=== PATIENT | female | born 1930 ===

== ENCOUNTER 2016-11-06 16:47 | Inpatient (IN) | payer MEDICARE, MEDICAID ==
[2016-11-06 16:48] VITALS: BMI 26.3
[2016-11-06] MEDS ORDERED: Sodium Chloride 0.9% 500 ML IV STA (17:35)
--- NOTE | 2016-11-06 17:52 | ED PDOC ---
Hyperglycemia/Hypoglycemia Time Seen by Provider: 11/06/16 17:04 Chief Complaint (Nursing): Medical Clearance Chief Complaint (Provider): Hyperglycemia History Per: Patient, Family (daughter) History/Exam Limitations: no limitations Onset/Duration Of Symptoms: Days (x2-3 weeks) Current Symptoms Are (Timing): Still Present : The patient does not have any of the infectious symptoms listed except for those marked. Additional Complaint(s): Jelena Simon is a 86 year old female who presents to the emergency department accompanied by her daughter, for evaluation of hyperglycemia associated with intermittent dizziness, urine frequency, decreased appetite and subjective weight loss ongoing for 2-3 weeks. Denied dysuria, hematuria, chest pain, shortness of breath or focal deficits. Daughter stated patient have not been compliant with diabetes diet, has poor sleeping habits and progressive memory loss for the past few months. Patient was recently seen by aircraft structural design engineer, Dr. Correa, who advised starting Insulin treatments and her PCP recommended ED evaluation for hyperglycemia. PMD: Curtis Norman MD Past Medical History Reviewed: Historical Data, Nursing Documentation, Vital Signs Vital Signs: Last Vital Signs Temp 97.9 F 11/06/16 16:53 Pulse 65 11/06/16 16:53 Resp 14 11/06/16 16:53 BP 163/67 H 11/06/16 16:53 Pulse Ox 100 11/06/16 16:53 - Medical History PMH: Arthritis, Dementia, Diabetes (type II), HTN Denies: Chronic Kidney Disease - Surgical History Surgical History: Cholecystectomy - Family History Family History: States: Unknown Family Hx - Social History Current smoker - smoking cessation education provided: No Alcohol: None Drugs: Denies - Immunization History Hx Tetanus Toxoid Vaccination: No Hx Influenza Vaccination: No Hx Pneumococcal Vaccination: No - Home Medications Home Medications: Ambulatory Orders Medication Instructions Recorded Ezetimibe [Zetia] 10 mg PO DAILY 11/06/16 Glimepiride [Amaryl] 4 mg PO BID 11/06/16 Linagliptin [Tradjenta] 5 mg PO DAILY 11/06/16 Lisinopril [Zestril] 20 mg PO DAILY 11/06/16 Memantine [Namenda] 5 mg PO DAILY 11/06/16 Simvastatin [Simvastatin] 10 mg PO HS 11/06/16 amLODIPine [Norvasc] 10 mg PO DAILY 11/06/16 hydroCHLOROthiazide [Microzide] 12.5 mg PO DAILY 11/06/16 - Allergies Allergies/Adverse Reactions: Allergies Allergy/AdvReac Type Severity Reaction Status Date / Time No Known Allergies Allergy Verified 06/03/16 11:11 Review of Systems ROS Statement: Except As Marked, All Systems Reviewed And Found Negative (and as per HPI) Constitutional: Positive for: Weight loss (subjective) Cardiovascular: Negative for: Chest Pain Respiratory: Negative for: Shortness of Breath Gastrointestinal: Positive for: Other (decreased appetite) Genitourinary Female: Positive for: Frequency. Negative for: Dysuria, Hematuria Neurological: Positive for: Dizziness (intermittent). Negative for: Other ( focal deficits) Physical Exam - Reviewed Nursing Documentation Reviewed: Yes Vital Signs Reviewed: Yes - Physical Exam Appears: Positive for: Non-toxic, No Acute Distress Head Exam: Positive for: ATRAUMATIC, NORMOCEPHALIC Skin: Positive for: Warm, Dry Eye Exam: Positive for: EOMI, PERRL ENT: Positive for: Other (dry muc membranes) Neck: Positive for: Painless ROM, Supple Cardiovascular/Chest: Positive for: Regular Rate, Rhythm, Chest Non Tender. Negative for: Murmur Respiratory: Positive for: Normal Breath Sounds. Negative for: Wheezing, Respiratory Distress Gastrointestinal/Abdominal: Positive for: Soft. Negative for: Tenderness, Mass , Guarding Back: Positive for: Normal Inspection. Negative for: Decreased ROM Extremity: Positive for: Normal ROM. Negative for: Pedal Edema, Calf Tenderness , Deformity Lymphatic: Negative for: Adenopathy Neurologic/Psych: Positive for: Alert. Negative for: Motor/Sensory Deficits - Laboratory Results Result Diagrams: 11/06/16 17:48 11/06/16 17:48 Interpretation Of Abn Labs: Hyperglycemia, without acidosis or ketosis - ECG O2 Sat by Pulse Oximetry: 100 (RA) Pulse Ox Interpretation: Normal - Radiology X-Ray: Read By Radiologist X-Ray Interpretation: No Acute Disease Medical Decision Making Medical Decision Making: Initial Impression: Hyperglycemia Initial Plan: * Type and screen * VBG * EKG * Labs * Lipase * Magnesium * Phosphorous * TSH * Troponin I * Urine dipstick * PTT * PT * CXR * NS 500ml IV per 500 mls/hr * Blood culture * Urine culture * Urinalysis * Re-evaluation Time: 1744 --EKG: NSR at 61 BMP. Inversion in lateral leads. Results are similiar to EKG done in 02/2016. DW Dr Correa Endocrinology and Dr Norman PMD. Pt will be hospitalized for uncontrolled diabetes. Scribe Attestation: Documented by Shanthi Kyle, acting as a scribe for Natalya Harding MD. Provider Scribe Attestation: All medical record entries made by the Scribe were at my direction and personally dictated by me. I have reviewed the chart and agree that the record accurately reflects my personal performance of the history, physical exam, medical decision making, and the department course for this patient. I have also personally directed, reviewed, and agree with the discharge instructions and disposition. Disposition - Clinical Impression Clinical Impression: Uncontrolled diabetes mellitus, Dementia, Dehydration - Disposition Disposition Time: 21:00 Condition: FAIR - Pt Status Changed To: Hospital Disposition Of: Inpatient - Admit Certification Admit to Inpatient:: After my assessment, the patient will require hospitalization for at least two midnights. This is because of the severity of symptoms shown, intensity of services needed, and/or the medical risk in this patient being treated as an outpatient. - POA Present On Arrival: Poor Glycemic Control
[2016-11-06 17:59] LABS: VENOUS BLOOD GAS BASE EXCESS 2.7 mmol/L (0.0-2.0); VENOUS BLOOD GAS PCO2 50 mmHg (40-60); VENOUS BLOOD GAS PO2 25 mm/Hg (30-55); VENOUS BLOOD PH 7.37 (7.32-7.43)
[2016-11-06 18:03] LABS: BASO # 0.1 K/uL (0.0-0.2); BASO % 0.9 % (0.0-2.0); EOS # 0.1 K/uL (0.0-0.7); EOS % 0.8 % (0.0-4.0); HEMOGLOBIN 12.8 g/dL (12.0-16.0); LYMPH # 2.3 K/uL (1.0-4.3); LYMPH % 33.4 % (20.0-40.0); MEAN CELL VOLUME 90.4 fl (81.0-99.0); MEAN CORPUSCULAR HEMOGLOBIN 29.4 pg (27.0-31.0); MEAN CORPUSCULAR HGB CONC 32.5 g/dL (33.0-37.0); MEAN PLATELET VOLUME 9.8 fl (7.2-11.7); MONO # 0.5 K/uL (0.0-0.8); MONO % 7.4 % (0.0-10.0); NEUT % 57.5 % (50.0-75.0); NRBC % 0.1 % (0.0-0.0); RBC 4.34 Mil/uL (3.80-5.20); RED CELL DISTRIBUTION WIDTH 13.7 % (11.5-14.5); WHITE BLOOD COUNT 6.9 K/uL (4.8-10.8)
[2016-11-06 18:08] LABS: ALB/GLOB RATIO 1.5 (1.0-2.1); ALBUMIN 4.6 g/dL (3.5-5.0); ALT/SGPT 52 U/L (9-52); AST/SGOT 41 U/L (14-36); BLOOD UREA NITROGEN 27 mg/dl (7-17); CALCIUM 9.6 mg/dL (8.4-10.2); GFR AFRICAN-AMERICAN > 60; GFR NON-AFRICAN AMERICAN 59; LIPASE 127 U/L (23-300); MAGNESIUM 2.2 MG/DL (1.6-2.3)
[2016-11-06] MEDS ORDERED: Dextrose 50% SYRINGE Inj (50 ml) IV PRN (19:33)
[2016-11-06] MEDS ORDERED: Glucagon Recombinant 1 mg Inj IM PRN (19:33)
[2016-11-06 19:39] LABS: SQUAMOUS EPITHIAL 1 /hpf (0-5); URINE BILIRUBIN NEGATIVE (NEGATIVE); URINE BLOOD NEGATIVE (NEGATIVE); URINE CLARITY CLEAR (Clear); URINE COLOR STRAW (YELLOW); URINE GLUCOSE (UA) >=500 mg/dL (Normal); URINE LEUKOCYTE ESTERASE NEG Leu/uL (Negative); URINE NITRATE NEGATIVE (NEGATIVE); URINE PROTEIN NEGATIVE (NEGATIVE); URINE UROBILINOGEN 0.2-1.0 mg/dL (0.2-1.0)
[2016-11-06 19:44] LABS: INR 1.2 (0.9-1.2); PARTIAL THROMBOPLASTIN TIME 27.1 Seconds (25.6-37.1)
--- NOTE | 2016-11-06 20:22 | RAD ---
HISTORY: fatigue dizziness COMPARISON: Chest x-ray 04/18/2010 and 02/29/2016 TECHNIQUE: Chest PA and lateral FINDINGS: LUNGS: No focal consolidation is seen. PLEURA: No pleural effusion is identified. CARDIOVASCULAR: Heart size is within normal limits.Atherosclerotic calcifications noted of the aorta. OSSEOUS STRUCTURES: Stable grade 1 retrolisthesis measuring 5 mm of a lower thoracic vertebral body. Degenerative changes noted of the spine. VISUALIZED UPPER ABDOMEN: Surgical clips noted right upper quadrant, likely from prior cholecystectomy. OTHER FINDINGS: None. IMPRESSION: No acute cardiopulmonary process seen.
[2016-11-06] MEDS ORDERED: Insulin Regular 100 units/ml SC SCH (22:00)
[2016-11-06] MEDS: Insulin Detemir 100 Units/ml Inj SC SCH (22:59)
[2016-11-06] MEDS: Insulin Regular 100 units/ml SC SCH (22:59)
[2016-11-07 06:23] LABS: ALB/GLOB RATIO 1.4 (1.0-2.1); ALBUMIN 3.9 g/dL (3.5-5.0); ALT/SGPT 41 U/L (9-52); AST/SGOT 36 U/L (14-36); BLOOD UREA NITROGEN 18 mg/dl (7-17); GFR AFRICAN-AMERICAN > 60; GFR NON-AFRICAN AMERICAN > 60
[2016-11-07] MEDS ORDERED: GlipiZIDE 10 mg SR Tab PO SCH (08:00)
[2016-11-07] MEDS: Insulin Regular 100 units/ml SC SCH ×4 (08:40→21:30)
[2016-11-07] MEDS: Enoxaparin 40 mg Syringe SC SCH (08:43)
[2016-11-07] MEDS ORDERED: Sodium Chloride 0.45% 1,000 ML IV SCH (09:00)
--- NOTE | 2016-11-07 10:32 | CARD ---
APPROVED REPORT EKG Measurement Heart [id number] ID [id number] <Conclusion> Normal sinus rhythm ST & T wave abnormality, consider lateral ischemia Abnormal ECG
--- NOTE | 2016-11-07 11:34 | CON ---
ENDOCRINOLOGY CONSULTATION DATE: 11/07/2016 HISTORY OF PRESENT ILLNESS: This is an 86-year-old female with known history of longstanding type 2 diabetes presenting here with progressively worsening dizziness and lightheadedness with marked generalized body weakness and concomitant hyperglycemic accelerations despite a dual oral hypoglycemic drug therapy and is now being admitted for further evaluation and management and also referred now for diabetic evaluation and management. PAST MEDICAL HISTORY: History of type 2 insulin requiring diabetes and was previously on a triple oral hypoglycemic drug therapy with metformin given as 850 mg b.i.d., but was poorly tolerated because of GI adverse effect and has now been only on a dual oral hypoglycemic drug combination with Tradjenta given as 5 mg daily with Amaryl given as 4 mg b.i.d before meals as ordered. History of hypertension and dyslipidemia. History of senile dementia with progressively worsening lapses of memory and forgetfulness as noted. History of generalized osteoarthritis as noted. She had prior cholecystectomy for underlying cholelithiasis. FAMILY HISTORY: Positive for diabetes and hypertension. SOCIAL HISTORY: The patient lives alone in a senior citizen housing building in [place] and has a very supportive daughter who lives a few blocks away. No known substance use. REVIEW OF SYSTEMS: As mentioned above. Admits to generalized body weakness with easy fatigability and tiredness and suboptimal energy level, also admits to bifrontal headaches with frequent memory lapses again worse in the last few months prior to admission, also history of marked insomnia with nil oral intake and progressive weight loss of over 15 pounds or so prior to admission. No chest pains or palpitation or PND. Her oral intake is variable and suboptimal with nausea, dyspepsia, and vague upper abdominal pain and habitual constipation. Also admits to marked polyuria, nocturia, polydipsia, and over 10-15 pound weight loss in the last few months prior to admission. PHYSICAL EXAMINATION GENERAL: female in no apparent distress. VITAL SIGNS: Blood pressure 160/90, pulse of 100 beats per minute and regular, temperature 99, respirations 20. Height is 5 feet 2 inches, weight 145 pounds. HEENT: Head normocephalic. Eyes anicteric with pink conjunctivae. Funduscopy not possible at this time. Ears, nose, and throat otherwise normal. NECK: Supple. Thyroid gland is normal in size. No carotid bruits or any cervical adenopathy. CARDIOPULMONARY: Adynamic precordium. S1 and S2 is rapid and regular. LUNGS: Clear to auscultation. ABDOMEN: Flat, soft with positive bowel sounds. EXTREMITIES: No peripheral edema. Pulses are +2 bilaterally. SKIN: Turgor is coarse and dry and buccal mucosa is parched and dry. LABORATORY DATA: Her hemoglobin A1c done on the outpatient was 13.6% which is quite elevated and indicative of suboptimal metabolic control of her dietary condition with secondary pancreatic failure as noted. Also her fasting glucose level ranged from 350 to over 400 mg/dL as noted in the outpatient despite the abovementioned drug therapy in combination. Her chemistry showed a BUN of 27, sodium 140, potassium 3.6, chloride 105, CO2 23, glucose 265, and creatinine 0.9. ASSESSMENT: This is an 86-year-old female with uncontrolled and decompensated type 2 insulin requiring diabetes with marked hyperglycemic acceleration presenting here with secondary pancreatic failure and clearly insulin requiring at this time for the first time despite maximum triple oral hypoglycemic drug therapy as given. PLAN: Plan of management as discussed with the primary physician , the imperative need to insulin therapy cannot be overemphasized despite the maximum of oral hypoglycemic drug therapy different combination. We will initiate diabetic education and to include insulin self-administration techniques by awareness educator, Ms. Yany Slade(?). We will also obtain a hemoglobin A1c to confirm her prior poor glycemic control and baseline thyroid function studies and lipid panel will be ordered. We will initiate basal insulin with Levemir given as 10 units subcutaneous at bedtime daily, to start tonight. We will titrate incremental as indicated to optimize metabolic control. We will also modify the coverage scale to obviate hypoglycemia and detailed orders have been given. If postprandial glycemic accelerations persist by tomorrow morning, then we will start her on a pre-mixed insulin regimen given twice daily before breakfast and before dinner as indicated. We will obtain serum chemistries of supplement accordingly as needed. We will follow and advise accordingly. Shanthi Correa MD
[2016-11-07] MEDS ORDERED: Potassium Chloride 20 mEq ER Tab PO ONE (12:10)
--- NOTE | 2016-11-07 19:34 | PN ---
ENDO FOLLOWUP NOTE LOCATION: Room 656. This is an 86-year-old female with recent uncontrolled type-2 insulin requiring diabetes, now being followed closely for metabolic management. She actually has already been on a combination of triple oral hypoglycemic drug therapy given on the outpatient with persistent hyperglycemic accelerations and the latest A1c done on the outpatient a week ago was 13.6% present, clearly elevated and indicative of suboptimal metabolic control of her diabetic condition with secondary pancreatic failure as noted. Her glucose values have ranged from 131/265 mg/L. Her latest A1c here is 12.9%. The chemistry showed a BUN of 18. Sodium 142, potassium 3.3, chloride 107, CO2 of 26, glucose 133 and creatinine 0.7. ASSESSMENT: This is an 86-year-old female with uncontrolled and decompensated type-2 insulin requiring diabetes with secondary pancreatic failure and clearly insulin requiring despite the recent triple oral hypoglycemic drug combination as given on the outpatient for so many years to the present time. 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 PLAN: Plan of management as discussed with the staff and the nurse practitioner and also the primary physician. Prior to this admission, the patient clearly needs the initiation of insulin therapy but because of the biggest concern regarding her dementia and frequent lapses of forgetfulness and memory, we will have to relay on either the family member or a skilled healthcare worker to administer the insulin. In the meantime, we will teach the patient insulin self-administration and our nurse educator will be coming in today to help out the patient. We will continue the low-dose correction scale regular insulin as ordered. We will add glipizide given as 10 mg p.o. b.i.d. before meals as ordered. We will continue also the Januvia given as 50 mg once daily as given. We will titrate incremental as indicated to optimize metabolic control. We will continue the IV hydration as given and obtain serum chemistries of supplement accordingly as needed. We will follow with you. Shanthi Correa MD
--- NOTE | 2016-11-07 20:34 | CP.PCM.HP ---
History of Present Illness - History of Present Illness History of Present Illness: 86 yo with hx of HTN NIDDM Dementia admitted for uncontrolled blood sugars Present on Admission - Present on Admission Any Indicators Present on Admission: No Past Patient History - Past Medical History & Family History Past Medical History?: Yes - Past Social History Smoking Status: Never Smoked - CARDIAC Hx Hypertension: Yes - PULMONARY Hx Respiratory Disorders: No - NEUROLOGICAL Hx Dementia: Yes - HEENT Hx HEENT Problems: No - RENAL Hx Chronic Kidney Disease: No - ENDOCRINE/METABOLIC Hx Diabetes Mellitus Type 2: Yes - HEMATOLOGICAL/ONCOLOGICAL Hx Blood Disorders: No - INTEGUMENTARY Hx Dermatological Problems: No - MUSCULOSKELETAL/RHEUMATOLOGICAL Hx Falls: No - GASTROINTESTINAL Hx Gastrointestinal Disorders: No - GENITOURINARY/GYNECOLOGICAL Hx Genitourinary Disorders: No - PSYCHIATRIC Hx Substance Use: No - SURGICAL HISTORY Hx Cholecystectomy: Yes - ANESTHESIA Hx Anesthesia: Yes Hx Anesthesia Reactions: No Hx Malignant Hyperthermia: No Meds Allergies/Adverse Reactions: Allergies Allergy/AdvReac Type Severity Reaction Status Date / Time No Known Allergies Allergy Verified 06/03/16 11:11 Physical Exam - Respiratory Exam Respiratory Exam: NORMAL BREATHING PATTERN - Cardiovascular Exam Cardiovascular Exam: REGULAR RHYTHM - GI/Abdominal Exam GI & Abdominal Exam: Normal Bowel Sounds Results - Vital Signs Recent Vital Signs: Last Vital Signs Temp 98.5 F 11/07/16 17:00 Pulse 60 11/07/16 16:10 Resp 20 11/07/16 16:10 BP 144/68 11/07/16 16:10 Pulse Ox 96 11/07/16 16:10 - Labs Result Diagrams: 11/06/16 17:48 11/07/16 05:00 Labs: Laboratory Results - last 24 hr 11/06/16 11/06/16 11/07/16 19:37 22:18 05:00 Sodium 142 Potassium 3.3 L Chloride 107 Carbon Dioxide 26 Anion Gap 12 BUN 18 H Creatinine 0.7 Est GFR ( Amer) > 60 Est GFR (Non-Af Amer) > 60 POC Glucose (mg/dL) 219 H 212 H Random Glucose 133 H Hemoglobin A1c Calcium 9.0 Total Bilirubin 0.6 AST 36 ALT 41 Alkaline Phosphatase 67 Total Protein 6.8 Albumin 3.9 Globulin 2.8 Albumin/Globulin Ratio 1.4 11/07/16 11/07/16 11/07/16 05:00 05:08 10:56 Sodium Potassium Chloride Carbon Dioxide Anion Gap BUN Creatinine Est GFR ( Amer) Est GFR (Non-Af Amer) POC Glucose (mg/dL) 131 H 265 H Random Glucose Hemoglobin A1c 12.9 H Calcium Total Bilirubin AST ALT Alkaline Phosphatase Total Protein Albumin Globulin Albumin/Globulin Ratio 11/07/16 11/07/16 12:10 15:40 Sodium Potassium Chloride Carbon Dioxide Anion Gap BUN Creatinine Est GFR ( Amer) Est GFR (Non-Af Amer) POC Glucose (mg/dL) 272 H 206 H Random Glucose Hemoglobin A1c Calcium Total Bilirubin AST ALT Alkaline Phosphatase Total Protein Albumin Globulin Albumin/Globulin Ratio Assessment & Plan - Assessment and Plan (Free Text) Assessment: NIDDM uncontrolled Insulin Nutritional Diabetic teaching Endo HTN - Date & Time Date: 11/07/16 Time: 22:22
[2016-11-07] MEDS: Pravastatin Sodium 20 MG TAB PO SCH (21:28)
[2016-11-07] MEDS: Insulin Detemir 100 Units/ml Inj SC SCH (21:28)
[2016-11-08 06:30] LABS: HEMOGLOBIN 11.9 g/dL (12.0-16.0); MEAN CELL VOLUME 89.3 fl (81.0-99.0); MEAN CORPUSCULAR HEMOGLOBIN 29.5 pg (27.0-31.0); RBC 4.04 Mil/uL (3.80-5.20); RED CELL DISTRIBUTION WIDTH 13.8 % (11.5-14.5); WHITE BLOOD COUNT 5.5 K/uL (4.8-10.8)
[2016-11-08 06:48] LABS: ALB/GLOB RATIO 1.4 (1.0-2.1); ALBUMIN 3.9 g/dL (3.5-5.0); ALT/SGPT 44 U/L (9-52); AST/SGOT 40 U/L (14-36); BLOOD UREA NITROGEN 14 mg/dl (7-17); CALCIUM 9.1 mg/dL (8.4-10.2); GFR AFRICAN-AMERICAN > 60; GFR NON-AFRICAN AMERICAN > 60
[2016-11-08] MEDS: Insulin Regular 100 units/ml SC SCH ×4 (08:19→21:57)
[2016-11-08] MEDS: Enoxaparin 40 mg Syringe SC SCH (09:05)
[2016-11-08 10:18] LABS: HEMOGLOBIN 12.4 g/dL (12.0-16.0); MEAN CELL VOLUME 90.2 fl (81.0-99.0); MEAN CORPUSCULAR HEMOGLOBIN 29.7 pg (27.0-31.0); MEAN CORPUSCULAR HGB CONC 32.9 g/dL (33.0-37.0); RBC 4.17 Mil/uL (3.80-5.20); RED CELL DISTRIBUTION WIDTH 13.7 % (11.5-14.5); WHITE BLOOD COUNT 6.5 K/uL (4.8-10.8)
[2016-11-08 10:26] LABS: BLOOD UREA NITROGEN 14 mg/dl (7-17); CALCIUM 9.3 mg/dL (8.4-10.2); GFR AFRICAN-AMERICAN > 60; GFR NON-AFRICAN AMERICAN > 60
--- NOTE | 2016-11-08 16:05 | PN ---
LOCATION: Room 656. This is an 86-year-old female with recent uncontrolled type-2 insulin requiring diabetes, now being followed closely for metabolic management. Her glycemic levels are fluctuating but improved and today's glucose values have ranged from 189 to 206 and 272 mg/dL. Her latest chemistry showed a BUN of 14, sodium 141, potassium 3.5, chloride 106, CO2 25, glucose 134, and creatinine 0.7. Her hemoglobin A1c is 12.9%, which is quite elevated and indicative of suboptimal metabolic control of her diabetic condition despite the outpatient management with triple oral hypoglycemic drug regimen as mentioned. So at this time we will continue the basal insulin given as Levemir at 10 units subcu at bedtime daily as ordered. We will also increase the Januvia to 100 mg once daily in the morning as ordered with glipizide given as 10 mg b.i.d. before meals as given. We will titrate incrementally as indicated to optimize metabolic control. She continues to have postprandial hyperglycemic accelerations and may actually need a bolus insulin regimen for each meal, but because of her underlying dementia and increased lapses of memory and forgetfulness, we will have to hold off any extra insulin administration if at all possible. Our nurse educator Ms. Shira Slade will be coming in today to teach the patient insulin self administration. However, the biggest concern is the safety of insulin administration by this patient with increased lapses of memory and forgetfulness. We will discuss with the social media content specialist regarding the outpatient options for insulin supervision by the family and/or the visiting nurse. We will follow and advise accordingly. Shanthi Correa MD
--- NOTE | 2016-11-08 17:38 | CP.PCM.PN ---
Subjective - Date & Time of Evaluation Date of Evaluation: 11/08/16 Time of Evaluation: 22:22 - Subjective Subjective: Doing well Objective - Vital Signs/Intake and Output Vital Signs (last 24 hours): Temp Pulse Resp BP Pulse Ox 98.2 F 62 18 129/62 98 16 16:17 11/08/16 16:17 11/08/16 16:17 11/08/16 16:17 11/08/16 16:17 - Medications Medications: Current Medications Amlodipine Besylate (Norvasc) 10 mg PO DAILY [facility] Last Admin: 11/08/16 09:06 Dose: 10 mg Dextrose (Dextrose 50% Inj) 0 ml IV STAT PRN; Protocol PRN Reason: Hyglycemia Protocol Dextrose (Glutose 15) 0 gm PO ONCE PRN; Protocol PRN Reason: Hypoglycemia Protocol Ezetimibe (Zetia) 10 mg PO DAILY [facility] Last Admin: 11/08/16 09:07 Dose: 10 mg Enoxaparin Sodium (Lovenox) 40 mg SC DAILY [facility] PRN Reason: Protocol Last Admin: 11/08/16 09:05 Dose: 40 mg Glipizide (Glucotrol) 10 mg PO BIDAC [facility] Last Admin: 11/08/16 17:20 Dose: 10 mg Glucagon (Glucagen Diagnostic Kit) 0 mg IM STAT PRN; Protocol PRN Reason: Hypoglycemia Protocol Hydrochlorothiazide (Microzide) 12.5 mg PO DAILY [facility] Last Admin: 11/08/16 09:05 Dose: 12.5 mg Insulin Detemir (Levemir) 10 units SC HS [facility] Last Admin: 11/07/16 21:28 Dose: 10 unit Insulin Human Regular (Humulin R) 0 units SC [facility] PRN Reason: Protocol Last Admin: 11/08/16 17:21 Dose: Not Given Lisinopril (Zestril) 20 mg PO DAILY [facility] Last Admin: 11/08/16 09:00 Dose: 20 mg Memantine (Namenda) 5 mg PO DAILY [facility] Last Admin: 11/08/16 09:06 Dose: 5 mg Pravastatin Sodium (Pravachol) 20 mg PO HS [facility] Last Admin: 11/07/16 21:28 Dose: 20 mg Sitagliptin Phosphate (Januvia) 100 mg PO DAILY [facility] - Labs Labs: 11/08/16 09:55 11/08/16 09:55 PT 12.0 Seconds (9.8-13.1) 11/06/16 19:00 INR 1.2 (0.9-1.2) 11/06/16 19:00 APTT 27.1 Seconds (25.6-37.1) 11/06/16 19:00 - Respiratory Exam Respiratory Exam: NORMAL BREATHING PATTERN - Cardiovascular Exam Cardiovascular Exam: REGULAR RHYTHM - GI/Abdominal Exam GI & Abdominal Exam: Normal Bowel Sounds Assessment and Plan - Assessment and Plan (Free Text) Assessment: NIDDM uncontrolled Insulin Nutritional Diabetic teaching Endo HTN anti-HTN meds Dementia Namenda
[2016-11-08] MEDS: Pravastatin Sodium 20 MG TAB PO SCH (21:57)
[2016-11-08] MEDS: Insulin Detemir 100 Units/ml Inj SC SCH (21:58)
[2016-11-09 07:44] VITALS: BP 161/67; PULSE 74; RESP 20; TEMP 98.4; O2SAT 97
[2016-11-09] MEDS: Insulin Regular 100 units/ml SC SCH (09:16)
[2016-11-09] MEDS: Enoxaparin 40 mg Syringe SC SCH (09:17)
--- NOTE | 2016-11-09 10:11 | CP.PCM.PCO ---
Assessment/Plan - Assessment/Plan Assessment (Free Text): Pt stable, in no apparent distress. Denies cp, sob, f/c/n/v. Heart S1S1, lungs clear, abdomen soft, non tender. Per SW pt accepted to [facility]. Pt to continue same medication regimen as here as reflected in med rec. Pt cleared by Dr. Cordoba for d/c to [facility], he will follow pt there. - Problems Patient Problems: Problem List (Active/Current) Problem Status Onset Code Dehydration Acute E86.0 Dementia Acute F03.90 Uncontrolled diabetes mellitus Acute E11.65
--- NOTE | 2016-11-09 16:17 | CP.PCM.PN ---
Subjective - Date & Time of Evaluation Date of Evaluation: 11/09/16 Time of Evaluation: 22:22 - Subjective Subjective: Above noted Objective - Vital Signs/Intake and Output Vital Signs (last 24 hours): Temp Pulse Resp BP Pulse Ox 98.4 F 74 20 161/67 H 97 11/09/16 07:43 11/09/16 09:19 11/09/16 07:43 11/09/16 09:19 11/09/16 07:43 - Labs Labs: 11/08/16 09:55 11/08/16 09:55 PT 12.0 Seconds (9.8-13.1) 11/06/16 19:00 INR 1.2 (0.9-1.2) 11/06/16 19:00 APTT 27.1 Seconds (25.6-37.1) 11/06/16 19:00 Assessment and Plan - Assessment and Plan (Free Text) Assessment: NIDDM uncontrolled Insulin Nutritional Diabetic teaching Endo HTN anti-HTN meds Dementia Namenda
[2016-11-09] MEDS ORDERED: Insulin Detemir 100 Units/ml Inj SC SCH (22:00)
--- NOTE | 2016-11-10 02:41 | PN ---
DATE: 11/09/2016 ENDO-FOLLOWUP NOTE LOCATION: Room 656. SUBJECTIVE: This is an 86-year-old female with recent uncontrolled type 2 insulin-requiring diabetes, now being followed closely for metabolic management. She has had persistent hyperglycemic accelerations despite outpatient triple oral hypoglycemic drug therapy given in combination as noted. She has been admitted now because of generalized body weakness with episodic dizziness and lightheadedness and worsening dehydration with markedly elevated glucose values as noted. LABORATORY DATA: Latest chemistries showed a BUN of 14, sodium 138, potassium 3.6, chloride 104, CO2 of 23, glucose 272 and creatinine 0.8. Her glucose values have ranged from 134 to 304 mg per dL. ASSESSMENT: This is an 86-year-old female with marked hyperglycemic accelerations with intercurrent hyperosmolar hyperglycemic state and dehydration with supervening secondary pancreatic failure and clearly insulin requiring at this time. PLAN: Plan of management was discussed with the patient and staff. We will modify the current insulin regimen and increase the Levemir to 14 units subq at bedtime daily to start tonight. We will titrate incremental as indicated to optimize metabolic control. We will also determine the need for the addition of premixed and/or bolus insulin injections as indicated. We will follow with you. Shanthi Correa MD
== END 2016-11-09 12:45 | DRG 639 ==
LOC: H.ER 16:47 → H.ERHOLD 19:33 → H.MEDSURG1 22:13
PROVIDERS: ADMIT Family Medicine Geriatric Medicine; ATTEND Family Medicine Geriatric Medicine
DX: E11.00 Type 2 diabetes mellitus with hyperosmolarity without nonketotic hyperglycemic-hyperosmolar coma (NKHHC) (principal); E11.65 Type 2 diabetes mellitus with hyperglycemia; E11.42 Type 2 diabetes mellitus with diabetic polyneuropathy; E86.0 Dehydration; F03.90 Unspecified dementia, unspecified severity, without behavioral disturbance, psychotic disturbance, mood disturbance, and anxiety; I10 Essential (primary) hypertension; I25.10 Atherosclerotic heart disease of native coronary artery without angina pectoris; E78.5 Hyperlipidemia, unspecified; I73.9 Peripheral vascular disease, unspecified; M15.9 Polyosteoarthritis, unspecified; Z79.4 Long term (current) use of insulin; Z79.84 Long term (current) use of oral hypoglycemic drugs

== ENCOUNTER 2017-02-26 16:43 | Inpatient (IN) | payer MEDICARE, MEDICAID ==
[2017-02-26 16:46] VITALS: BMI 26.3
[2017-02-26 18:01] LABS: BASO # 0.1 K/uL (0.0-0.2); EOS # 0.1 K/uL (0.0-0.7); EOS % 1.2 % (0.0-4.0); HEMATOCRIT 40.7 % (34.0-47.0); LYMPH # 2.1 K/uL (1.0-4.3); LYMPH % 37.1 % (20.0-40.0); MEAN CELL VOLUME 89.8 fl (81.0-99.0); MEAN CORPUSCULAR HEMOGLOBIN 28.8 pg (27.0-31.0); MEAN PLATELET VOLUME 9.4 fl (7.2-11.7); MONO # 0.4 K/uL (0.0-0.8); MONO % 7.4 % (0.0-10.0); NEUT % 53.3 % (50.0-75.0); NRBC % 0.1 % (0.0-0.0); WHITE BLOOD COUNT 5.6 K/uL (4.8-10.8)
[2017-02-26 18:15] LABS: ALB/GLOB RATIO 1.4 (1.0-2.1); ALKALINE PHOSPHATASE 81 U/L (38-126); ALT/SGPT 60 U/L (9-52); AST/SGOT 57 U/L (14-36); BILIRUBIN,TOTAL 0.5 mg/dl (0.2-1.3); BLOOD UREA NITROGEN 15 mg/dl (7-17); CARBON DIOXIDE 27 mmol/L (22-30); CHLORIDE 108 mmol/L (98-107); GFR AFRICAN-AMERICAN > 60; GLUCOSE,RANDOM 125 mg/dL (65-105); PHOSPHOROUS 3.1 mg/dl (2.5-4.5); POTASSIUM 3.9 MMOL/L (3.6-5.0); SODIUM 144 mmol/l (132-148); TOTAL PROTEIN 7.8 G/DL (6.3-8.2)
[2017-02-26 18:39] LABS: PARTIAL THROMBOPLASTIN TIME 29.2 Seconds (25.6-37.1)
[2017-02-26 18:45] LABS: THYROID STIMULATING HORMONE 1.06 mIU/ML (0.46-4.68)
--- NOTE | 2017-02-26 18:48 | ED PDOC ---
HPI: Altered Mental Status Time Seen by Provider: 02/26/17 17:06 Chief Complaint (Nursing): Headache Chief Complaint (Provider): Altered Mental Status History Per: Patient History/Exam Limitations: Other (demented) Onset/Duration Of Symptoms: Days (x 1) Additional Complaint(s): 87 year old female with a past medical history of dementia who presents to the ED for evaluation. The history is not completely reliable because of her past medical history. She reports that she has episodes of memory loss and confusion , specifically where she places things at home and sometimes forgets the topic of conversation while talking to her family members. She visited her PMD today for further evaluation. She denies difficulty with other ADL like taking medications, bathing, toileting and eating. Patient also denies headache, focal weakness, blurry vision, chest pain, swelling or shortness of breath. PMD: Dr. Neri Reynolds MD Past Medical History Reviewed: Historical Data, Nursing Documentation, Vital Signs Vital Signs: Last Vital Signs Temp 98.1 F 02/26/17 16:55 Pulse 64 02/26/17 16:55 Resp 18 02/26/17 16:55 BP 212/89 H 02/26/17 16:55 Pulse Ox 98 02/26/17 16:55 - Medical History PMH: Arthritis, Dementia, Diabetes (type II), HTN Denies: Chronic Kidney Disease - Surgical History Surgical History: Cholecystectomy - Family History Family History: States: Unknown Family Hx - Social History Current smoker - smoking cessation education provided: No Alcohol: None Drugs: Denies - Immunization History Hx Tetanus Toxoid Vaccination: No Hx Influenza Vaccination: No Hx Pneumococcal Vaccination: No - Home Medications Home Medications: Ambulatory Orders Medication Instructions Recorded Ezetimibe [Zetia] 10 mg PO DAILY 11/06/16 Lisinopril [Zestril] 20 mg PO DAILY 11/06/16 Memantine [Namenda] 5 mg PO DAILY 11/06/16 Simvastatin 10 mg PO HS 11/06/16 amLODIPine [Norvasc] 10 mg PO DAILY 11/06/16 hydroCHLOROthiazide [Microzide] 12.5 mg PO DAILY 11/06/16 GlipiZIDE [Glucotrol] 10 mg PO BIDAC tab 11/09/16 Insulin Detemir [Levemir] 14 units SC HS vial 11/09/16 Insulin Human Regular [HumuLIN R] 0 units SC ACHS ml 11/09/16 SITagliptin [Januvia] 100 mg PO DAILY tab 11/09/16 - Allergies Allergies/Adverse Reactions: Allergies Allergy/AdvReac Type Severity Reaction Status Date / Time No Known Allergies Allergy Verified 06/03/16 11:11 Review of Systems ROS Statement: Except As Marked, All Systems Reviewed And Found Negative Constitutional: Negative for: Other (swelling) Eyes: Negative for: Vision Change Cardiovascular: Negative for: Chest Pain Respiratory: Negative for: Shortness of Breath Neurological: Negative for: Weakness, Headache Physical Exam - Reviewed Nursing Documentation Reviewed: Yes Vital Signs Reviewed: Yes - Physical Exam Appears: Positive for: Non-toxic, No Acute Distress Head Exam: Positive for: ATRAUMATIC, NORMOCEPHALIC Skin: Positive for: Warm, Dry Eye Exam: Positive for: EOMI, PERRL ENT: Negative for: Pharyngeal Erythema, Tonsillar Exudate Neck: Positive for: Painless ROM, Supple Cardiovascular/Chest: Positive for: Regular Rate, Rhythm, Chest Non Tender. Negative for: Murmur Respiratory: Positive for: Normal Breath Sounds. Negative for: Respiratory Distress Gastrointestinal/Abdominal: Positive for: Soft. Negative for: Tenderness Back: Positive for: Normal Inspection. Negative for: Decreased ROM Extremity: Positive for: Normal ROM. Negative for: Deformity Lymphatic: Negative for: Adenopathy Neurologic/Psych: Positive for: Alert, Oriented (x3), Mood/Affect (flant), Other (per triage nurse, pt had poor insight to where she was and why she was in ER). Negative for: Motor/Sensory Deficits - Laboratory Results Result Diagrams: 02/26/17 17:57 02/26/17 17:57 - ECG O2 Sat by Pulse Oximetry: 98 (RA) Pulse Ox Interpretation: Normal - Progress ED Course And Treament: Triage nurse reports that upon her evaluation the patient did not know why she was in the ED and when asked why she thought, she would laugj. At the time, she did not know date or location. Upon, physical exam, she is alert and oriented x 3. Re-evaluation Time: 17:33 Condition: Improved Medical Decision Making Medical Decision Making: Time: 17:44 Impression: Hypertension and dementia Initial Plan: --Blood type and screen --CT Head without contrast --EKG --CMP --Lactic acid, plasma --Magnesium --Phosphorus --TSH --Troponin I --Urine dipstick --CBC with differentials --Labs reviewed and show no significant abnormalities Time: 18:57 CT Head without contrast FINDINGS: Brain: No acute intracranial hemorrhage. Age-appropriate periventricular white matter disease. No edema. Ventricles: Age-appropriate ventriculomegaly. Bones: No acute displaced fracture. Sinuses: Unremarkable as visualized. No acute sinusitis. Mastoid air cells: Unremarkable as visualized. No mastoid effusion. IMPRESSION: No acute intracranial hemorrhage, or suspicious mass effect. Time: 20:32 --Consulted with Dr. Reynolds. Agreed to admitting patient into observation for cardiac encephalopathy. --Requested cardiology consult with Dr. Barton Time: 20:56 --Spoke with Dr. Barton --recommended she take regular daily dose of Vasotec and Lisinopril DW pt findings and plan of care. Also dw pt's daughter Comfort on the phone. Scribe Attestation: Documented by Deirdre Reynolds, acting as a scribe for Natalya Harding MD Provider Scribe Attestation: All medical record entries made by the Scribe were at my direction and personally dictated by me. I have reviewed the chart and agree that the record accurately reflects my personal performance of the history, physical exam, medical decision making, and the department course for this patient. I have also personally directed, reviewed, and agree with the discharge instructions and disposition Disposition - Clinical Impression Clinical Impression: Hypertension, Dementia Counseled Patient/Family Regarding: Studies Performed, Diagnosis - Disposition Disposition Time: 20:00 Condition: FAIR - Pt Status Changed To: Hospital Disposition Of: Observation - POA Present On Arrival: None
[2017-02-26 19:07] LABS: RBC URINE 3 /hpf (0-3); URINE BILIRUBIN NEGATIVE (NEGATIVE); URINE BLOOD NEGATIVE (NEGATIVE); URINE COLOR YELLOW (YELLOW); URINE GLUCOSE (UA) >=500 mg/dL (Normal); URINE KETONE TRACE mg/dL (NEGATIVE); URINE LEUKOCYTE ESTERASE NEG Leu/uL (Negative); URINE PROTEIN 100 mg/dL (NEGATIVE); URINE UROBILINOGEN 0.2-1.0 mg/dL (0.2-1.0); WBC URINE 1 /hpf (0-5)
--- NOTE | 2017-02-26 20:02 | CT ---
EXAM: CT Head Without Intravenous Contrast CLINICAL HISTORY: 87 years old, female; Signs and symptoms; Altered mental status/memory loss; Other: Elevated BP; Additional info: AMS elevated BP TECHNIQUE: Axial computed tomography images of the head/brain without intravenous contrast. All CT scans at this facility use one or more dose reduction techniques, viz.: automated exposure control; ma/kV adjustment per patient size (including targeted exams where dose is matched to indication; i.e. head); or iterative reconstruction technique. Coronal and sagittal reformatted images were created and reviewed. COMPARISON: CT - HEAD W/O CONTRAST 2016-03-16 18:57 FINDINGS: Brain: No acute intracranial hemorrhage. Age-appropriate periventricular white matter disease. No edema. Ventricles: Age-appropriate ventriculomegaly. Bones: No acute displaced fracture. Sinuses: Unremarkable as visualized. No acute sinusitis. Mastoid air cells: Unremarkable as visualized. No mastoid effusion. IMPRESSION: No acute intracranial hemorrhage, or suspicious mass effect.
[2017-02-26] MEDS ORDERED: EnalaprilAT 1.25 mg/ml Inj IVP STA (20:35)
[2017-02-26] MEDS ORDERED: EnalaprilAT 1.25 mg/ml Inj ONE (20:53)
[2017-02-27] MEDS ORDERED: Influenza Vaccine 18yr & older 0.5 ML/45 MCG SYR IM ONE (05:25)
[2017-02-27] MEDS ORDERED: Pneumococcal 23-Valent Vaccine IM ONE (05:25)
[2017-02-27] MEDS: Enoxaparin 30 mg Syringe SC SCH (09:40)
--- NOTE | 2017-02-27 09:48 | CP.PCM.CON ---
History of Present Illness - History of Present Illness History of Present Illness: THE PATIENT IS AN 87 YEAR OLD FEMALE WITH A HISTORY OF HYPERTENSION, HYPERLIPIDEMIA, TYPE 2 DM AND ARTHRITIS. SHE ALSO HAS DEMENTIA AND STATES THAT SOMETIMES SHE FORGETS WHERE SHE PUTS THINGS OR FORGETS HER TRAIN OF THOUGHTS DURING A CONVERSATION BUT STATES THAT SHE IS GOOD WITH HER ACTIVITIES OF DAILY LIVING SUCH EATING, WASHING AND SHE STATES SHE BELIEVES SHE TAKES HER MEDICINES BUT CAN'T BE COMPLETELY SURE. SHE SAW DR PIERSON YESTERDAY AND HER BLOOD PRESSURE WAS VERY HIGH AND SHE WAS ADVISED TO GO TO THE ER. SHE WAS FOUND TO HAVE A BLOOD PRESSURE OF 212/89 LAST EVENING IN THE ER. SHE WAS ADMITTED AND DR PIERSON CALLED ME ON CONSULT AND I SPOKE TO THE ER PHYSICIAN AND RECOMMENDED THAT WE GIVE THE PATIENT HER NORMAL ANTIHYPERTENSIVE MEDICATIONS WHICH ARE AMLODIPINE 10 MGS DAILY AND LISINOPRIL 20 MGS DAILY LAST NIGHT SHE PROBABLY FORGOT TO TAKE THEM YESTERDAY. SHE DENIED ANY CHEST CHEST PAIN OR SOB AND HER BLOOD PRESSURE DECREASED TO 155/67 THIS MORNING. SHE ALSO DENIES ANY HISTORY OF CAD OR AN OLD IN. Past Patient History - Past Medical History & Family History Past Medical History?: Yes - Past Social History Smoking Status: Never Smoked - CARDIAC Hx Cardiac Disorders: Yes Hx Hypertension: Yes - PULMONARY Hx Respiratory Disorders: No - NEUROLOGICAL Hx Dementia: Yes - HEENT Hx HEENT Problems: No - RENAL Hx Chronic Kidney Disease: No - ENDOCRINE/METABOLIC Hx Diabetes Mellitus Type 2: Yes - HEMATOLOGICAL/ONCOLOGICAL Hx Blood Disorders: No Hx AIDS: No Hx Human Immunodeficiency Virus (HIV): No - INTEGUMENTARY Hx Dermatological Problems: No - MUSCULOSKELETAL/RHEUMATOLOGICAL Hx Arthritis: Yes Hx Falls: No - GASTROINTESTINAL Hx Gastrointestinal Disorders: No - GENITOURINARY/GYNECOLOGICAL Hx Genitourinary Disorders: No - PSYCHIATRIC Hx Psychophysiologic Disorder: No Hx Substance Use: No - SURGICAL HISTORY Hx Cholecystectomy: Yes - ANESTHESIA Hx Anesthesia: Yes Hx Anesthesia Reactions: No Hx Malignant Hyperthermia: No Has any member of the family had a problem w/ anesthesia?: No Meds Allergies/Adverse Reactions: Allergies Allergy/AdvReac Type Severity Reaction Status Date / Time No Known Allergies Allergy Verified 06/03/16 11:11 - Medications Medications: Current Medications Amlodipine Besylate (Norvasc) 10 mg PO DAILY [facility]EL Ezetimibe (Zetia) 10 mg PO DAILY [facility] Enoxaparin Sodium (Lovenox) 30 mg SC DAILY [facility] PRN Reason: Protocol Glipizide (Glucotrol) 10 mg PO BIDAC [facility] Hydrochlorothiazide (Microzide) 12.5 mg PO DAILY [facility] Insulin Detemir (Levemir) 14 units SC HS [facility] Lisinopril (Zestril) 20 mg PO DAILY [facility] Memantine (Namenda) 5 mg PO DAILY [facility] Sitagliptin Phosphate (Januvia) 50 mg PO DAILY [facility] Physical Exam - Respiratory Exam Respiratory Exam: Clear to Auscultation Bilateral - Cardiovascular Exam Cardiovascular Exam: REGULAR RHYTHM, +S1, +S2 - Extremities Exam Extremities exam: Positive for: normal inspection - Additional Findings Additional findings: [employer] NSR TROPONINS NORMAL CT OF THE HEAD WITHOUT ANY ACUTE FINDINGS Results - Vital Signs Recent Vital Signs: Last Vital Signs Temp 98.3 F 02/27/17 08:00 Pulse 60 02/27/17 08:00 Resp 18 02/27/17 08:00 BP 155/67 H 02/27/17 08:00 Pulse Ox 98 02/27/17 08:00 - Labs Result Diagrams: 02/26/17 17:57 02/26/17 17:57 Labs: Laboratory Results - last 24 hr 02/26/17 02/26/17 02/26/17 17:57 17:57 17:57 WBC 5.6 RBC 4.53 Hgb 13.0 Hct 40.7 MCV 89.8 MCH 28.8 MCHC 32.0 L RDW 14.0 Plt Count 137 MPV 9.4 Neut % (Auto) 53.3 Lymph % (Auto) 37.1 [place] % (Auto) 7.4 Eos % (Auto) 1.2 Baso % (Auto) 1.0 Neut # 3.0 Lymph # 2.1 [place] # 0.4 Eos # 0.1 Baso # 0.1 PT 12.8 INR 1.2 APTT 29.2 Sodium 144 Potassium 3.9 Chloride 108 H Carbon Dioxide 27 Anion Gap 13 BUN 15 Creatinine 0.8 Est GFR ( Amer) > 60 Est GFR (Non-Af Amer) > 60 POC Glucose (mg/dL) Random Glucose 125 H Lactic Acid Calcium 9.0 Phosphorus 3.1 Magnesium 2.0 Total Bilirubin 0.5 AST 57 H ALT 60 H D Alkaline Phosphatase 81 Troponin I 0.0160 Total Protein 7.8 Albumin 4.5 Globulin 3.3 Albumin/Globulin Ratio 1.4 TSH 3rd Generation 1.06 Urine Color Urine Clarity Urine pH Ur Specific [place] Urine Protein Urine Glucose (UA) Urine Ketones Urine Blood Urine Nitrate Urine Bilirubin Urine Urobilinogen Ur Leukocyte Esterase Urine RBC (Auto) Urine Microscopic WBC Ur Squamous Epith Cells 02/26/17 02/26/17 02/27/17 17:57 18:26 04:15 WBC RBC Hgb Hct MCV MCH MCHC RDW Plt Count MPV Neut % (Auto) Lymph % (Auto) [place] % (Auto) Eos % (Auto) Baso % (Auto) Neut # Lymph # [place] # Eos # Baso # PT INR APTT Sodium Potassium Chloride Carbon Dioxide Anion Gap BUN Creatinine Est GFR ( Amer) Est GFR (Non-Af Amer) POC Glucose (mg/dL) Random Glucose Lactic Acid 1.1 Calcium Phosphorus Magnesium Total Bilirubin AST ALT Alkaline Phosphatase Troponin I < 0.0120 Total Protein Albumin Globulin Albumin/Globulin Ratio TSH 3rd Generation Urine Color Yellow Urine Clarity Slighty-cloudy Urine pH 6.0 Ur Specific [place] 1.028 Urine Protein 100 Urine Glucose (UA) >=500 Urine Ketones Trace Urine Blood Negative Urine Nitrate Negative Urine Bilirubin Negative Urine Urobilinogen 0.2-1.0 Ur Leukocyte Esterase Neg Urine RBC (Auto) 3 Urine Microscopic WBC 1 Ur Squamous Epith Cells 3 02/27/17 06:47 WBC RBC Hgb Hct MCV MCH MCHC RDW Plt Count MPV Neut % (Auto) Lymph % (Auto) [place] % (Auto) Eos % (Auto) Baso % (Auto) Neut # Lymph # [place] # Eos # Baso # PT INR APTT Sodium Potassium Chloride Carbon Dioxide Anion Gap BUN Creatinine Est GFR ( Amer) Est GFR (Non-Af Amer) POC Glucose (mg/dL) 152 H Random Glucose Lactic Acid Calcium Phosphorus Magnesium Total Bilirubin AST ALT Alkaline Phosphatase Troponin I Total Protein Albumin Globulin Albumin/Globulin Ratio TSH 3rd Generation Urine Color Urine Clarity Urine pH Ur Specific [place] Urine Protein Urine Glucose (UA) Urine Ketones Urine Blood Urine Nitrate Urine Bilirubin Urine Urobilinogen Ur Leukocyte Esterase Urine RBC (Auto) Urine Microscopic WBC Ur Squamous Epith Cells Assessment & Plan - Assessment and Plan (Free Text) Assessment: SEVERE HYPERTENSION LAST NIGHT MOST PROBABLY FROM FORGETTING TO TAKE HER MEDICINES WITH GOOD RESPONSE AFTER TAKING THEM HYPERLIPIDEMIA TYPE 2 DM DEMENTIA Plan: CONTINUE AMLODIPINE 10 MGS DAILY AND LISINOPRIL 20 MGS DAILY, ZETIA, LOVENOX AND DM MEDICATIONS MONITOR BLOOD PRESSURE
--- NOTE | 2017-02-27 10:44 | CARD ---
APPROVED REPORT EKG Measurement Heart [id number] <Conclusion> Sinus bradycardia Nonspecific T wave abnormality Abnormal ECG
--- NOTE | 2017-02-27 10:59 | CARD ---
APPROVED REPORT EKG Measurement Heart [id number] <Conclusion> Sinus bradycardia Possible septal infarct, age undetermined T wave abnormality, consider lateral ischemia Abnormal ECG
[2017-02-27] MEDS: Insulin Regular 100 units/ml SC SCH ×2 (16:35→22:33)
--- NOTE | 2017-02-27 17:07 | CP.PCM.HP ---
History of Present Illness - History of Present Illness History of Present Illness: 87 yo with hx of Dementia HTN NIDDM admitted for uncontrolled hypertension with headaches and increasing confusion Present on Admission - Present on Admission Any Indicators Present on Admission: No Past Patient History - Past Medical History & Family History Past Medical History?: Yes - Past Social History Smoking Status: Never Smoked - CARDIAC Hx Cardiac Disorders: Yes Hx Hypertension: Yes - PULMONARY Hx Respiratory Disorders: No - NEUROLOGICAL Hx Dementia: Yes - HEENT Hx HEENT Problems: No - RENAL Hx Chronic Kidney Disease: No - ENDOCRINE/METABOLIC Hx Diabetes Mellitus Type 2: Yes - HEMATOLOGICAL/ONCOLOGICAL Hx Blood Disorders: No Hx AIDS: No Hx Human Immunodeficiency Virus (HIV): No - INTEGUMENTARY Hx Dermatological Problems: No - MUSCULOSKELETAL/RHEUMATOLOGICAL Hx Arthritis: Yes Hx Falls: No - GASTROINTESTINAL Hx Gastrointestinal Disorders: No - GENITOURINARY/GYNECOLOGICAL Hx Genitourinary Disorders: No - PSYCHIATRIC Hx Psychophysiologic Disorder: No Hx Substance Use: No - SURGICAL HISTORY Hx Cholecystectomy: Yes - ANESTHESIA Hx Anesthesia: Yes Hx Anesthesia Reactions: No Hx Malignant Hyperthermia: No Has any member of the family had a problem w/ anesthesia?: No Meds Allergies/Adverse Reactions: Allergies Allergy/AdvReac Type Severity Reaction Status Date / Time No Known Allergies Allergy Verified 06/03/16 11:11 Physical Exam - Respiratory Exam Respiratory Exam: NORMAL BREATHING PATTERN - Cardiovascular Exam Cardiovascular Exam: REGULAR RHYTHM - GI/Abdominal Exam GI & Abdominal Exam: Normal Bowel Sounds Results - Vital Signs Recent Vital Signs: Last Vital Signs Temp 98.1 F 02/27/17 15:40 Pulse 62 02/27/17 15:40 Resp 18 02/27/17 15:40 BP 154/62 H 02/27/17 15:40 Pulse Ox 95 02/27/17 15:40 - Labs Result Diagrams: 02/26/17 17:57 02/26/17 17:57 Labs: Laboratory Results - last 24 hr 02/26/17 02/26/17 02/26/17 17:57 17:57 17:57 WBC 5.6 RBC 4.53 Hgb 13.0 Hct 40.7 MCV 89.8 MCH 28.8 MCHC 32.0 L RDW 14.0 Plt Count 137 MPV 9.4 Neut % (Auto) 53.3 Lymph % (Auto) 37.1 [place] % (Auto) 7.4 Eos % (Auto) 1.2 Baso % (Auto) 1.0 Neut # 3.0 Lymph # 2.1 [place] # 0.4 Eos # 0.1 Baso # 0.1 PT 12.8 INR 1.2 APTT 29.2 Sodium 144 Potassium 3.9 Chloride 108 H Carbon Dioxide 27 Anion Gap 13 BUN 15 Creatinine 0.8 Est GFR ( Amer) > 60 Est GFR (Non-Af Amer) > 60 POC Glucose (mg/dL) Random Glucose 125 H Lactic Acid Calcium 9.0 Phosphorus 3.1 Magnesium 2.0 Total Bilirubin 0.5 AST 57 H ALT 60 H D Alkaline Phosphatase 81 Troponin I 0.0160 Total Protein 7.8 Albumin 4.5 Globulin 3.3 Albumin/Globulin Ratio 1.4 TSH 3rd Generation 1.06 Urine Color Urine Clarity Urine pH Ur Specific [place] Urine Protein Urine Glucose (UA) Urine Ketones Urine Blood Urine Nitrate Urine Bilirubin Urine Urobilinogen Ur Leukocyte Esterase Urine RBC (Auto) Urine Microscopic WBC Ur Squamous Epith Cells 02/26/17 02/26/17 02/27/17 17:57 18:26 04:15 WBC RBC Hgb Hct MCV MCH MCHC RDW Plt Count MPV Neut % (Auto) Lymph % (Auto) [place] % (Auto) Eos % (Auto) Baso % (Auto) Neut # Lymph # [place] # Eos # Baso # PT INR APTT Sodium Potassium Chloride Carbon Dioxide Anion Gap BUN Creatinine Est GFR ( Amer) Est GFR (Non-Af Amer) POC Glucose (mg/dL) Random Glucose Lactic Acid 1.1 Calcium Phosphorus Magnesium Total Bilirubin AST ALT Alkaline Phosphatase Troponin I < 0.0120 Total Protein Albumin Globulin Albumin/Globulin Ratio TSH 3rd Generation Urine Color Yellow Urine Clarity Slighty-cloudy Urine pH 6.0 Ur Specific [place] 1.028 Urine Protein 100 Urine Glucose (UA) >=500 Urine Ketones Trace Urine Blood Negative Urine Nitrate Negative Urine Bilirubin Negative Urine Urobilinogen 0.2-1.0 Ur Leukocyte Esterase Neg Urine RBC (Auto) 3 Urine Microscopic WBC 1 Ur Squamous Epith Cells 3 02/27/17 02/27/17 02/27/17 06:47 10:26 11:30 WBC RBC Hgb Hct MCV MCH MCHC RDW Plt Count MPV Neut % (Auto) Lymph % (Auto) [place] % (Auto) Eos % (Auto) Baso % (Auto) Neut # Lymph # [place] # Eos # Baso # PT INR APTT Sodium Potassium Chloride Carbon Dioxide Anion Gap BUN Creatinine Est GFR ( Amer) Est GFR (Non-Af Amer) POC Glucose (mg/dL) 152 H 281 H Random Glucose Lactic Acid Calcium Phosphorus Magnesium Total Bilirubin AST ALT Alkaline Phosphatase Troponin I < 0.0120 Total Protein Albumin Globulin Albumin/Globulin Ratio TSH 3rd Generation Urine Color Urine Clarity Urine pH Ur Specific [place] Urine Protein Urine Glucose (UA) Urine Ketones Urine Blood Urine Nitrate Urine Bilirubin Urine Urobilinogen Ur Leukocyte Esterase Urine RBC (Auto) Urine Microscopic WBC Ur Squamous Epith Cells 02/27/17 15:59 WBC RBC Hgb Hct MCV MCH MCHC RDW Plt Count MPV Neut % (Auto) Lymph % (Auto) [place] % (Auto) Eos % (Auto) Baso % (Auto) Neut # Lymph # [place] # Eos # Baso # PT INR APTT Sodium Potassium Chloride Carbon Dioxide Anion Gap BUN Creatinine Est GFR ( Amer) Est GFR (Non-Af Amer) POC Glucose (mg/dL) 186 H Random Glucose Lactic Acid Calcium Phosphorus Magnesium Total Bilirubin AST ALT Alkaline Phosphatase Troponin I Total Protein Albumin Globulin Albumin/Globulin Ratio TSH 3rd Generation Urine Color Urine Clarity Urine pH Ur Specific [place] Urine Protein Urine Glucose (UA) Urine Ketones Urine Blood Urine Nitrate Urine Bilirubin Urine Urobilinogen Ur Leukocyte Esterase Urine RBC (Auto) Urine Microscopic WBC Ur Squamous Epith Cells Assessment & Plan - Assessment and Plan (Free Text) Assessment: Uncontrolled hypertension with headaches and increasing confusion Admit to telemetry Cardiology Neurology Dementia cont meds NIDDM Endo LFT's ?? - Date & Time Date: 02/27/17 Time: 22:22
[2017-02-27] MEDS ORDERED: Insulin Detemir 100 Units/ml Inj SC SCH (22:00)
[2017-02-28 06:02] LABS: HEMATOCRIT 39.8 % (34.0-47.0); MEAN CELL VOLUME 89.5 fl (81.0-99.0); MEAN CORPUSCULAR HEMOGLOBIN 28.8 pg (27.0-31.0); MEAN CORPUSCULAR HGB CONC 32.1 g/dL (33.0-37.0); RED CELL DISTRIBUTION WIDTH 13.7 % (11.5-14.5); WHITE BLOOD COUNT 5.6 K/uL (4.8-10.8)
[2017-02-28] MEDS: Insulin Regular 100 units/ml SC SCH ×4 (08:00→22:06)
[2017-02-28 08:23] LABS: ALB/GLOB RATIO 1.3 (1.0-2.1); BILIRUBIN,TOTAL 0.5 mg/dl (0.2-1.3); TOTAL PROTEIN 7.4 G/DL (6.3-8.2)
--- NOTE | 2017-02-28 08:49 | CON ---
DATE: ENDOCRINOLOGY CONSULTATION ROOM: 418 HISTORY OF PRESENT ILLNESS: This is an 87-year-old female with a known history of type 2 insulin-requiring diabetes and hypertension, now being referred for further diabetic evaluation and management because of persistent hyperglycemic accelerations as noted. PAST MEDICAL HISTORY: History of type 2 insulin-requiring diabetes, currently on a combination of Basaglar or basal insulin given 16 units subcutaneous at bedtime daily with oral hyperglycemic drug therapy treated today and on Januvia given at 50 mg once daily. She was previously on glimepiride therapy, but the patient has no recollection as to whether she has been on the medications or not at this time. History of type 2 insulin-requiring diabetes - on the above regimen as mentioned, history of hypertension and dyslipidemia, history of coronary artery disease and peripheral arterial disease and vasculopathy, recent history of dementia, which is progressive in nature with frequent lapses of memory and orientation as noted, which really makes her unsafe for discharge at this time. FAMILY HISTORY: Positive for diabetes and hypertension. SOCIAL HISTORY: The patient has a supportive family. No known substance use. The patient lives alone in the senior housing in [place], but her daughter when she is in town from [place] will assume the care of her mother for many weeks on stretch until she moves back again to [place]. REVIEW OF SYSTEMS: Constitutional symptoms: She admits to generalized body weakness with hypersomnolence and lethargy and increasing bouts of forgetfulness and orientation. No chest pains, palpitations or PNDs. Her oral intake has been variable with nausea, dyspepsia, and vague upper abdominal pain. Also, admits to marked polyuria and nocturia as noted. PHYSICAL EXAMINATION: GENERAL: This is an average built female, in no apparent distress. VITAL SIGNS: Blood pressure of 140/80, pulse of 70 beats per minute and regular, temperature 98, respirations 20, height is 5 feet 2 inches, and weight is 148 pounds. HEENT: Head is normocephalic. Eyes are anicteric with pink conjunctivae. Funduscopy not possible at this time. Ears, nose, and throat are otherwise normal. NECK: Supple. Thyroid gland is normal in size. No carotid bruits or any cervical adenopathy. CARDIOPULMONARY: Some adynamic precordium. LUNGS: Shows scattered rhonchi. ABDOMEN: Flat and soft with positive bowel sounds. EXTREMITIES: No peripheral edema. Pulses are +2 bilaterally. LABORATORY DATA: Her chemistry shows a BUN of 50, sodium 144, potassium 3.9, chloride 108, CO2 27, glucose 125, and creatinine 0.8. Her glucose levels are ranging from 152 to 281 mg/dL. ASSESSMENT: This is an 87-year-old female with uncontrolled and decompensated type 2 insulin-requiring diabetes with extremes of glycemic fluctuations, also because of the variabilities of oral intake and also because of the need for prandial or mealtime coverage of her insulin regimen as noted. PLAN OF MANAGEMENT: As discussed with the patient and staff. She will actually be needing prandial insulin coverage and we will continue the glipizide given as 10 mg b.i.d. before meals and Januvia at 50 mg once daily as ordered. We will increase the basal insulin, the Levemir given as 18 units subcutaneous at bedtime daily to start tonight. We will titrate it as indicated to optimize metabolic control. We will obtain serial chemistries and supplement accordingly as needed. We will follow with you. Shanthi Correa MD
[2017-02-28] MEDS: Enoxaparin 30 mg Syringe SC SCH (09:48)
[2017-02-28 11:46] LABS: T4 8.79 ug/dl (5.5-11.0)
[2017-02-28 12:00] LABS: THYROID STIMULATING HORMONE 2.6 mIU/ML (0.46-4.68)
[2017-02-28] MEDS ORDERED: Insulin Detemir 100 Units/ml Inj SC SCH ×2 (12:15→22:00)
--- NOTE | 2017-02-28 14:02 | CP.PCM.PN ---
Subjective - Date & Time of Evaluation Date of Evaluation: 02/28/17 Time of Evaluation: 13:00 - Subjective Subjective: NO CHEST PAIN OR SOB Objective - Vital Signs/Intake and Output Vital Signs (last 24 hours): Temp Pulse Resp BP Pulse Ox 98.2 F 66 18 196/72 H 98 02/28/17 12:00 02/28/17 12:34 02/28/17 12:00 02/28/17 12:34 02/28/17 12:00 - Medications Medications: Current Medications Amlodipine Besylate (Norvasc) 10 mg PO DAILY [facility] Last Admin: 02/28/17 09:49 Dose: 10 mg Ezetimibe (Zetia) 10 mg PO DAILY [facility] Last Admin: 02/28/17 09:49 Dose: 10 mg Enoxaparin Sodium (Lovenox) 30 mg SC DAILY [facility] PRN Reason: Protocol Last Admin: 02/28/17 09:48 Dose: 30 mg Glipizide (Glucotrol) 10 mg PO BIDAC [facility] Last Admin: 02/28/17 08:00 Dose: 10 mg Hydrochlorothiazide (Microzide) 12.5 mg PO DAILY [facility] Last Admin: 02/28/17 09:49 Dose: 12.5 mg Insulin Detemir (Levemir) 14 units SC HS [facility] Insulin Human Regular (Humulin R) 0 units SC ACHS [facility] PRN Reason: Protocol Insulin Lispro Protam/Lispro Human (Humalog Mix 75/25) 14 units SC ACB [facility] Insulin Lispro Protam/Lispro Human (Humalog Mix 75/25) 6 units SC ACD [facility] Lisinopril (Zestril) 20 mg PO DAILY [facility] Last Admin: 02/28/17 09:49 Dose: 20 mg Memantine (Namenda) 5 mg PO DAILY [facility] Last Admin: 02/28/17 09:49 Dose: 5 mg Sitagliptin Phosphate (Januvia) 50 mg PO DAILY [facility] - Labs Labs: 02/28/17 05:25 02/26/17 17:57 PT 12.8 Seconds (9.8-13.1) 02/26/17 17:57 INR 1.2 (0.9-1.2) 02/26/17 17:57 APTT 29.2 Seconds (25.6-37.1) 02/26/17 17:57 - Respiratory Exam Respiratory Exam: Clear to Ausculation Bilateral - Cardiovascular Exam Cardiovascular Exam: REGULAR RHYTHM, +S1, +S2 - Extremities Exam Extremities Exam: Normal Inspection - Additional Findings Additional findings: BP VHE969/69 AT 8 AM AND INCREASED TO 196/72 AT 12 NOON [facility] NSR ENDOCRINOGY CONSULT REVIEWED Assessment and Plan - Assessment and Plan (Free Text) Assessment: HYPERTENSION HYPERLIPIDEMIA DIABETES MELLITUS Plan: CONTINUE AMLODIPINE 10 MGS DAILY AND LISINOPRIL 20 MGS DAILY EXTRA 10 MGS LISINOPRIL GIVEN ONCE AND WILL MONITOR BLOOD PRESSURE-LISINOPRIL CAN BE INCREASED TO 40 MGS DAILY IF NEEDED FOR MRI AND ECHO NEUROLOGY TO SEE
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
[2017-02-28] MEDS ORDERED: Gadodiamide 287 MG/ML VIAL (15ML) IV ONE (15:37)
--- NOTE | 2017-02-28 16:29 | MRI ---
PROCEDURE: MR Angiography of the neck without contrast HISTORY: headache, confusion COMPARISON: None available. TECHNIQUE: 3D [id number] angiography of the neck was performed. Rotating maximum intensity projection images of the cervical carotid and vertebral arteries were generated. The origins of the common carotid arteries were not visualized, which is a limitation inherent to the non-contrast time of flight technique. FINDINGS: RIGHT CAROTID ARTERIES: Common Carotid Artery: Normal. Carotid Bifurcation: Normal. Internal Carotid Artery:Normal. External Carotid Artery (proximal branches): Normal. LEFT CAROTID ARTERIES: Common Carotid Artery: Normal. Carotid Bifurcation: Normal. Internal Carotid Artery:Normal. External Carotid Artery (proximal branches): Normal. VERTEBRAL ARTERIES: Right Vertebral Artery: Normal. Left Vertebral Artery: Normal. OTHER FINDINGS: None. IMPRESSION: Normal MR Angiography of the neck.
--- NOTE | 2017-02-28 16:29 | PN ---
DATE: ENDOCRINOLOGY FOLLOWUP NOTE LOCATION: Room 418. SUBJECTIVE: This is an 87-year-old female with recent uncontrolled type 2 insulin-requiring diabetes, now being followed closely for metabolic management. She also has significant and progressive dementia with increasing bouts of forgetfulness, disorientation, and confusion and also unable to self-administer her own insulin regimen at home. She has been coming to my office on a daily basis for insulin administration, but she is only being given basal insulin once a day with persistent hyperglycemic accelerations as noted thereof. The patient lives alone at this time and really needs a subacute and/or a long-term care facility to facilitate her insulin administration and glucose monitoring and also for the overall safety of the patient as she cannot be discharged to home alone at this time with increasing dementia as noted. Her latest glucose levels have ranged from 143-176 and 312 mg/dL. The latest chemistry showed a BUN of 15, sodium 144, potassium 3.9, chloride 108, CO2 of 27, glucose 125, and creatinine 0.8. Her hemoglobin A1c is 9.2%, which is quite elevated and indicative of suboptimal metabolic control of her diabetic condition. So, at this time, we will modify and optimize her metabolic control and add a premixed insulin regimen with Humalog 75/25 given as 14 units before breakfast and 6 units before dinner to start tonight. We will also modify the coverage scale to obviate hypoglycemia and detailed orders have been given. We will lower the Levemir given as 14 units subcu at bedtime daily to start tonight. We will titrate incremental as indicated to optimize metabolic control. We will follow and advise accordingly. Shanthi Correa MD
[2017-02-28 17:00] LABS: FT3 3.29 pg/mL (2.77-5.27)
--- NOTE | 2017-02-28 17:00 | MRI ---
PROCEDURE: MRI BRAIN WITH AND WITHOUT CONTRAST HISTORY: Headache COMPARISON: None. TECHNIQUE: Multiplanar, multisequence MR images of the brain were obtained with and without intravenous contrast enhancement. FINDINGS: HEMORRHAGE: None DWI: No evidence of an acute or early subacute infarction. BRAIN PARENCHYMA: There is a 9 mm right parafalcine meningioma. There are severe chronic microangiopathic changes. There are old lacunar infarctions in the right hernandez radiata and basal ganglia. There is no mass effect or abnormal extra-axial fluid collection. The midline sagittal structures are normal. ENHANCEMENT: No abnormal parenchymal enhancement. VENTRICLES: There is moderate age-related global parenchymal volume loss and proportionate enlargement of the ventricles and cortical sulci. There is a cavum septum pellucidum. CRANIUM: Bone marrow signal is within normal limits. ORBITS: Grossly unremarkable. PARANASAL SINUSES/MASTOIDS: Predominantly clear. VASCULAR SYSTEM: There are normal signal voids in the larger intracranial arteries. OTHER FINDINGS: None . IMPRESSION: No acute intracranial abnormality. 9 mm right parafalcine meningioma. Severe chronic microangiopathic changes and moderate age-related global parenchymal volume loss.
[2017-02-28 17:49] LABS: FOLATE 9.3 ng/mL
--- NOTE | 2017-02-28 17:49 | MRI ---
PROCEDURE: Magnetic Resonance Angiography Brain HISTORY: Headache and confusion COMPARISON: None available. TECHNIQUE: 3D time of flight MR angiography of the intracranial arteries was performed. Rotating maximum intensity projection images were generated. FINDINGS: INTERNAL CAROTID ARTERIES: Normal flow related signal. The skull base, petrous, cavernous and supraclinoid segments are bilaterally widely patient. ANTERIOR CEREBRAL ARTERIES: Normal flow related signal. A1 and A2 segments are widely patent. The right A1 segment is hypoplastic, an anatomic variant. Smaller distal branches unremarkable, as visualized. MIDDLE CEREBRAL ARTERIES: Normal flow related signal. M1 and M2 segments are widely patent. Perisylvian branches grossly symmetric. POSTERIOR CIRCULATION: Basilar Artery: There a short segment stenosis in the mid basilar artery. Distal Vertebral Arteries: Unremarkable. Posterior Cerebral Arteries: There is multifocal stenosis in the right posterior cerebral artery. Normal flow related signal in the left posterior cerebral artery Posterior Inferior Cerebellar Arteries: Unremarkable. ANEURYSM/ VASCULAR MALFORMATIONS: None. OTHER FINDINGS: None. 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 No evidence of occlusion or definite stenosis in the anterior circulation.
[2017-02-28] MEDS: Insulin Lispro Mix 75/25 100 units/ml (HumaLog) 10ml SC SCH (18:06)
--- NOTE | 2017-02-28 18:30 | CP.PCM.PN ---
Subjective - Date & Time of Evaluation Date of Evaluation: 02/28/17 Time of Evaluation: 22:22 - Subjective Subjective: Neurology note appreciated Objective - Vital Signs/Intake and Output Vital Signs (last 24 hours): Temp Pulse Resp BP Pulse Ox 97.4 F L 71 14 152/70 H 96 02/28/17 17:16 02/28/17 17:16 02/28/17 17:16 02/28/17 17:30 02/28/17 17:16 - Medications Medications: Current Medications Amlodipine Besylate (Norvasc) 10 mg PO DAILY [facility] Last Admin: 02/28/17 09:49 Dose: 10 mg Aspirin (Ecotrin) 81 mg PO DAILY [facility] Last Admin: 02/28/17 18:06 Dose: 81 mg Ezetimibe (Zetia) 10 mg PO DAILY [facility] Last Admin: 02/28/17 09:49 Dose: 10 mg Enoxaparin Sodium (Lovenox) 30 mg SC DAILY [facility] PRN Reason: Protocol Last Admin: 02/28/17 09:48 Dose: 30 mg Glipizide (Glucotrol) 10 mg PO BIDAC [facility] Last Admin: 02/28/17 18:00 Dose: 10 mg Hydrochlorothiazide (Microzide) 12.5 mg PO DAILY [facility] Last Admin: 02/28/17 09:49 Dose: 12.5 mg Insulin Detemir (Levemir) 14 units SC HS [facility] Insulin Human Regular (Humulin R) 0 units SC ACHS [facility] PRN Reason: Protocol Last Admin: 02/28/17 18:01 Dose: Not Given Insulin Lispro Protam/Lispro Human (Humalog Mix 75/25) 14 units SC ACB [facility] Insulin Lispro Protam/Lispro Human (Humalog Mix 75/25) 6 units SC ACD [facility] Last Admin: 02/28/17 18:06 Dose: 6 units Lisinopril (Zestril) 20 mg PO DAILY [facility] Last Admin: 02/28/17 09:49 Dose: 20 mg Memantine (Namenda) 5 mg PO DAILY [facility] Last Admin: 02/28/17 09:49 Dose: 5 mg Sitagliptin Phosphate (Januvia) 50 mg PO DAILY [facility] - Labs Labs: 02/28/17 05:25 02/26/17 17:57 PT 12.8 Seconds (9.8-13.1) 02/26/17 17:57 INR 1.2 (0.9-1.2) 12 17:57 APTT 29.2 Seconds (25.6-37.1) 12 17:57 - Respiratory Exam Respiratory Exam: NORMAL BREATHING PATTERN - Cardiovascular Exam Cardiovascular Exam: REGULAR RHYTHM - GI/Abdominal Exam GI & Abdominal Exam: Normal Bowel Sounds Assessment and Plan - Assessment and Plan (Free Text) Assessment: Uncontrolled hypertension with headaches and increasing confusion Admit to telemetry Cardiology Neurology Dementia MID w/u ordered cont meds NIDDM Endo LFT's ??
--- NOTE | 2017-02-28 18:45 | CARD ---
APPROVED REPORT EXAM: Two-dimensional and M-mode echocardiogram with Doppler and color Doppler. Other Information Quality : GoodRhythm : NSR INDICATION Hypertension/HCVD 2D DIMENSIONS IVSd1.67 (0.7-1.1cm)LVDd4.21 (3.9-5.9cm) LVOT Diameter2.43 (1.8-2.4cm)PWd1.23 (0.7-1.1cm) IVSs1.73 (0.8-1.2cm)LVDs3.36 (2.5-4.0cm) FS (%) 20.1 %PWs1.15 (0.8-1.2cm) M-Mode DIMENSIONS Left Atrium (MM)4.41 (2.5-4.0cm)IVSd1.47 (0.7-1.1cm) Aortic Root3.00 (2.2-3.7cm)LVDd4.26 (4.0-5.6cm) Aortic Cusp Exc.1.88 (1.5-2.0cm)PWd1.44 (0.7-1.1cm) IVSs1.82 cmFS (%) 30 % LVDs3.00 (2.0-3.8cm)PWs1.44 cm Aortic Valve AI P 1/2 [id number] Mitral Valve MV E Ariljzmo96.9cm/sMV DECEL [id number] A Sakrmylw92.0cm/s MV [id number]/A ratio0.6MVA (PHT)2.63cm2 TDI Lateral E' Peak V5.46cm/sMedial E' Peak V4.16cm/sE/Lateral E'7.9 E/Medial E'10.3 Pulmonary Valve PV Peak Viuxhfbi77.3cm/s LEFT VENTRICLE The left ventricle is normal in size. There is mild concentric left ventricular hypertrophy. The left ventricular function is normal. The left ventricular ejection fraction is - 60%. There is normal LV segmental wall motion. Transmitral Doppler flow pattern is Grade I-abnormal relaxation pattern. No left ventricle thrombus noted on this study. There is no ventricular septal defect visualized. There is no left ventricular aneurysm. There is no mass noted in the left ventricle. RIGHT VENTRICLE The right ventricle is normal size. There is normal right ventricular wall thickness. The right ventricular systolic function is normal. ATRIA The left atrium is mildly dilated. There is no thrombus suspected in the left atrium. The right atrium size is normal. The interatrial septum is intact with no evidence for an atrial septal defect. AORTIC VALVE The aortic valve is normal in structure. There is trace to mild aortic regurgitation. There is no aortic valvular stenosis. MITRAL VALVE The mitral valve is normal in structure. There is no evidence of mitral valve prolapse. There is no mitral valve stenosis. Mitral regurgitation is mild. TRICUSPID VALVE The tricuspid valve is normal in structure. There is no tricuspid valve regurgitation noted. There is no tricuspid valve prolapse or vegetation. There is no tricuspid valve stenosis. PULMONIC VALVE The pulmonic valve is not well visualized. There is no pulmonic valvular regurgitation. GREAT VESSELS The aortic root is normal in size. The IVC is normal in size and collapses >50% with inspiration. PERICARDIAL EFFUSION The pericardium appears normal. There is no pleural effusion. <Conclusion> The left ventricle is normal in size. There is mild concentric left ventricular hypertrophy. The left ventricular function is normal. The left ventricular ejection fraction is - 60%. The left atriim is mildly dilated. The mitral, aortic and tricuspid valves are normal. There is mild mitral regurgitation and trace to mild aortic regurgitation.
[2017-03-01 06:16] LABS: ALB/GLOB RATIO 1.3 (1.0-2.1); ALKALINE PHOSPHATASE 75 U/L (38-126); ALT/SGPT 67 U/L (9-52); AST/SGOT 61 U/L (14-36); BILIRUBIN,TOTAL 0.5 mg/dl (0.2-1.3); BLOOD UREA NITROGEN 18 mg/dl (7-17); CALCIUM 9.1 mg/dL (8.4-10.2); CARBON DIOXIDE 29 mmol/L (22-30); CHLORIDE 105 mmol/L (98-107); GFR AFRICAN-AMERICAN > 60; GLUCOSE,RANDOM 110 mg/dL (65-105); POTASSIUM 3.5 MMOL/L (3.6-5.0); SODIUM 144 mmol/l (132-148); TOTAL PROTEIN 7.4 G/DL (6.3-8.2)
[2017-03-01] MEDS: Enoxaparin 30 mg Syringe SC SCH (08:28)
[2017-03-01] MEDS: Insulin Regular 100 units/ml SC SCH ×4 (08:28→21:17)
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
--- NOTE | 2017-03-01 09:30 | CP.PCM.PN ---
<Ankit Herrera - Last Filed: 03/01/17 09:24> Subjective - Date & Time of Evaluation Date of Evaluation: 03/01/17 Time of Evaluation: 09:24 - Subjective Subjective: Ms. Simon was seen and examined at the bedside. She is alert, oriented in all spheres. She states of experience restlessnesses last night. She denies any headache, dizziness, lightheadedness, nausea, or vomiting. There was no untoward events overnight. Objective - Vital Signs/Intake and Output Vital Signs (last 24 hours): Temp Pulse Resp BP Pulse Ox 97.5 F L 59 L 20 149/68 97 03/01/17 08:35 03/01/17 08:35 03/01/17 08:35 03/01/17 08:35 03/01/17 08:35 - Medications Medications: Current Medications Amlodipine Besylate (Norvasc) 10 mg PO DAILY [facility] Last Admin: 03/01/17 08:29 Dose: 10 mg Aspirin (Ecotrin) 81 mg PO DAILY [facility] Last Admin: 03/01/17 08:26 Dose: 81 mg Atorvastatin Calcium (Lipitor) 40 mg PO DAILY@2100 [facility] Clopidogrel Bisulfate (Plavix) 75 mg PO DAILY [facility] Enoxaparin Sodium (Lovenox) 30 mg SC DAILY [facility] PRN Reason: Protocol Last Admin: 03/01/17 08:28 Dose: 30 mg Glipizide (Glucotrol) 10 mg PO BIDAC [facility] Last Admin: 03/01/17 08:26 Dose: 10 mg Hydrochlorothiazide (Microzide) 12.5 mg PO DAILY [facility] Last Admin: 03/01/17 08:28 Dose: 12.5 mg Insulin Detemir (Levemir) 14 units SC HS [facility] Last Admin: 02/28/17 22:10 Dose: 14 units Insulin Human Regular (Humulin R) 0 units SC ACHS [facility] PRN Reason: Protocol Last Admin: 03/01/17 08:28 Dose: Not Given Insulin Lispro Protam/Lispro Human (Humalog Mix 75/25) 14 units SC ACB [facility] Insulin Lispro Protam/Lispro Human (Humalog Mix 75/25) 6 units SC ACD [facility] Last Admin: 02/28/17 18:06 Dose: 6 units Lisinopril (Zestril) 20 mg PO DAILY [facility] Last Admin: 03/01/17 08:30 Dose: 20 mg Memantine (Namenda) 5 mg PO DAILY [facility] Last Admin: 03/01/17 08:29 Dose: 5 mg Sitagliptin Phosphate (Januvia) 50 mg PO DAILY [facility] - Labs Labs: 02/28/17 05:25 03/01/17 04:40 PT 12.8 Seconds (9.8-13.1) 02/26/17 17:57 INR 1.2 (0.9-1.2) 02/26/17 17:57 APTT 29.2 Seconds (25.6-37.1) 02/26/17 17:57 - Constitutional Appears: No Acute Distress - Head Exam Head Exam: ATRAUMATIC - Neurological Exam Neurological Exam: Alert, Awake, CN II-XII Intact Neuro motor strength exam: Left Upper Extremity: 5, Right Upper Extremity: 5, Left Lower Extremity: 5, Right Lower Extremity: 5 Additional comments: Neurological unchanged from previous examination. Assessment and Plan (1) Altered mental status Assessment & Plan: Case discussed with Dr. Ruelas, recommends dual anti platelet and increasing statin. Plavix 75 mg PO Q daily and Lipitor 40 mg PO Q daily. Pending EEG result. Status: Acute <Willie Ruelas - Last Filed: 03/01/17 12:43> Objective - Vital Signs/Intake and Output Vital Signs (last 24 hours): Temp Pulse Resp BP Pulse Ox 97.9 F 62 20 156/71 H 97 03/01/17 12:37 03/01/17 12:37 03/01/17 12:37 03/01/17 12:37 03/01/17 12:37 - Medications Medications: Current Medications Amlodipine Besylate (Norvasc) 10 mg PO DAILY [facility] Last Admin: 03/01/17 08:29 Dose: 10 mg Aspirin (Ecotrin) 81 mg PO DAILY [facility] Last Admin: 03/01/17 08:26 Dose: 81 mg Atorvastatin Calcium (Lipitor) 40 mg PO DAILY@2100 [facility] Clopidogrel Bisulfate (Plavix) 75 mg PO DAILY [facility] Last Admin: 03/01/17 11:40 Dose: 75 mg Enoxaparin Sodium (Lovenox) 30 mg SC DAILY [facility] PRN Reason: Protocol Last Admin: 03/01/17 08:28 Dose: 30 mg Glipizide (Glucotrol) 10 mg PO BIDAC [facility] Last Admin: 03/01/17 08:26 Dose: 10 mg Hydrochlorothiazide (Microzide) 12.5 mg PO DAILY [facility] Last Admin: 03/01/17 08:28 Dose: 12.5 mg Insulin Detemir (Levemir) 14 units SC HS [facility] Last Admin: 02/28/17 22:10 Dose: 14 units Insulin Human Regular (Humulin R) 0 units SC ACHS [facility] PRN Reason: Protocol Last Admin: 03/01/17 11:34 Dose: Not Given Insulin Lispro Protam/Lispro Human (Humalog Mix 75/25) 14 units SC ACB [facility] Last Admin: 03/01/17 11:35 Dose: 14 units Insulin Lispro Protam/Lispro Human (Humalog Mix 75/25) 6 units SC ACD [facility] Last Admin: 02/28/17 18:06 Dose: 6 units Lisinopril (Zestril) 20 mg PO Q12 [facility] Memantine (Namenda) 5 mg PO DAILY [facility] Last Admin: 03/01/17 08:29 Dose: 5 mg Sitagliptin Phosphate (Januvia) 50 mg PO DAILY [facility] - Labs Labs: 02/28/17 05:25 03/01/17 04:40 PT 12.8 Seconds (9.8-13.1) 02/26/17 17:57 INR 1.2 (0.9-1.2) 02/26/17 17:57 APTT 29.2 Seconds (25.6-37.1) 02/26/17 17:57 Assessment and Plan (1) Altered mental status Assessment & Plan: The EEG was normal, but 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 The standard of care is to start dual anti-platelet agents as well as a medium to high dose statin. No further recommendations at this time. The patient can be followed up in the outpatient neurology clinic. Status: Acute (2) Confusion Status: Acute (3) Intracranial atherosclerosis Status: Chronic
[2017-03-01] MEDS: Insulin Lispro Mix 75/25 100 units/ml (HumaLog) 10ml SC SCH ×2 (11:35→16:46)
--- NOTE | 2017-03-01 12:39 | PCM.EEG ---
Electroencephalogram Report - Electroencephalogram Report Procedure Date: 03/01/17 Interpretation: Indication: Confusion. Medications were reviewed. Technical: This is a digitally recorded electroencephalogram. The international 10-20 electrode placement system is used for scalp electrode placement. Eighteen channels of scalp EEG are recorded Another channel was used for for ECG. The data are stored digitally and reviewed in reformatted montages for optimal display. Background: 8 to 10 hertz alpha activity was seen. Maximal over the posterior head region. These activities are symmetric on both sides. They attenuated with eye opening. Small amount of beta activities are seen. Description: No focal slowing was seen. No seizure like activity was observed during this recording. Patient entered into periods of drowsiness and light sleep. No abnormality was seen. Impression: Normal EEG. No focal slowing no seizure like activity was observed. Correlation with clinical findings is needed.
--- NOTE | 2017-03-01 18:26 | PN ---
DATE: ENDOCRINE FOLLOWUP NOTE LOCATION: Room 418. SUBJECTIVE: This is an 87-year-old female with recent uncontrolled type 2 insulin-requiring diabetes, now being followed closely for metabolic management. She also has progressive dementia and increasing bouts of confusion, disorientation, and frequent lapses of memory and forgetfulness this time and is unable to self administer her own insulin at home, not even do any glucose monitoring at home. Her latest chemistry shows a BUN of 18, sodium 144, potassium 3.5, chloride 105, CO2 of 29, glucose 110, and creatinine 0.8. Her latest glucose levels have ranged from 131 to 225 mg/dL. Her bedtime glucose was 172, of note. For now, we will continue the same basal and premixed insulin regimens to allow for dose equilibration and modify the Levemir to 12 units subcu at bedtime daily to start tonight. We will titrate incrementally as indicated to optimize metabolic control. We will also continue the same premixed insulin regimen to allow for dose equilibration and keep her on the Humalog 75/25 given as 14 units before breakfast and 6 units before dinner as ordered. We will titrate incrementally as indicated to optimize metabolic control. We will discuss with the nurse in charge, this will be a very unsafe discharge home for the patient because of inability to self administer her own insulin regimen and also to do self glucose monitoring and also to keep her meals on time in sync with the insulin administration. We will obtain serial chemistries and supplement accordingly as needed. We will follow this.. Shanthi Correa MD
--- NOTE | 2017-03-01 20:53 | CP.PCM.PN ---
Subjective - Date & Time of Evaluation Date of Evaluation: 03/01/17 Time of Evaluation: 22:22 - Subjective Subjective: MRI Menigioma?? Microvascular dx MRA Stenosis vert-basilar Endo- unsafe d/c home Objective - Vital Signs/Intake and Output Vital Signs (last 24 hours): Temp Pulse Resp BP Pulse Ox 98.2 F 66 17 150/65 97 03/01/17 19:22 03/01/17 19:22 03/01/17 19:22 03/01/17 19:22 03/01/17 19:22 Intake and Output: 03/01/17 03/02/17 18:59 06:59 Intake Total 1500 Balance 1500 - Medications Medications: Current Medications Amlodipine Besylate (Norvasc) 10 mg PO DAILY [facility] Last Admin: 03/01/17 08:29 Dose: 10 mg Aspirin (Ecotrin) 81 mg PO DAILY [facility] Last Admin: 03/01/17 08:26 Dose: 81 mg Atorvastatin Calcium (Lipitor) 40 mg PO DAILY@2100 [facility] Clopidogrel Bisulfate (Plavix) 75 mg PO DAILY [facility] Last Admin: 03/01/17 11:40 Dose: 75 mg Enoxaparin Sodium (Lovenox) 30 mg SC DAILY [facility] PRN Reason: Protocol Last Admin: 03/01/17 08:28 Dose: 30 mg Glipizide (Glucotrol) 10 mg PO BIDAC [facility] Last Admin: 03/01/17 16:46 Dose: 10 mg Hydrochlorothiazide (Microzide) 12.5 mg PO DAILY [facility] Last Admin: 03/01/17 08:28 Dose: 12.5 mg Insulin Detemir (Levemir) 12 units SC HS [facility] Insulin Human Regular (Humulin R) 0 units SC ACHS [facility] PRN Reason: Protocol Last Admin: 03/01/17 16:46 Dose: Not Given Insulin Lispro Protam/Lispro Human (Humalog Mix 75/25) 14 units SC ACB [facility] Last Admin: 03/01/17 11:35 Dose: 14 units Insulin Lispro Protam/Lispro Human (Humalog Mix 75/25) 6 units SC ACD [facility] Last Admin: 03/01/17 16:46 Dose: 6 units Lisinopril (Zestril) 20 mg PO Q12 [facility] Memantine (Namenda) 5 mg PO DAILY [facility] Last Admin: 03/01/17 08:29 Dose: 5 mg Sitagliptin Phosphate (Januvia) 50 mg PO DAILY [facility] - Labs Labs: 02/28/17 05:25 03/01/17 04:40 PT 12.8 Seconds (9.8-13.1) 02/26/17 17:57 INR 1.2 (0.9-1.2) 02/26/17 17:57 APTT 29.2 Seconds (25.6-37.1) 02/26/17 17:57 - Respiratory Exam Respiratory Exam: NORMAL BREATHING PATTERN - Cardiovascular Exam Cardiovascular Exam: REGULAR RHYTHM - GI/Abdominal Exam GI & Abdominal Exam: Normal Bowel Sounds Assessment and Plan - Assessment and Plan (Free Text) Assessment: Uncontrolled hypertension 2 to noncompliance Admit to telemetry Cardiology Meds adjusted Dementia MID? Headaches and increasing confusion MRI Menigioma?? Microvascular dx MRA Stenosis vert-basilar cont meds Neurology NIDDM Endo- unsafe d/c home LFT's ??
[2017-03-01] MEDS ORDERED: Insulin Detemir 100 Units/ml Inj SC SCH (22:00)
[2017-03-02] MEDS: Insulin Regular 100 units/ml SC SCH ×2 (06:37→12:11)
--- NOTE | 2017-03-02 07:55 | CP.PCM.PN ---
Subjective - Date & Time of Evaluation Date of Evaluation: 03/02/17 Time of Evaluation: 07:30 - Subjective Subjective: NO CHEST PAIN OR SOB FEELS OK AT THE PRESENT TIME Objective - Vital Signs/Intake and Output Vital Signs (last 24 hours): Temp Pulse Resp BP Pulse Ox 97.6 F 59 L 18 143/65 95 03/02/17 05:00 03/02/17 05:00 03/02/17 05:00 03/02/17 05:00 03/02/17 05:00 Intake and Output: 03/02/17 03/02/17 06:59 18:59 Intake Total 1500 Balance 1500 - Medications Medications: Current Medications Amlodipine Besylate (Norvasc) 10 mg PO DAILY [facility] Last Admin: 03/01/17 08:29 Dose: 10 mg Aspirin (Ecotrin) 81 mg PO DAILY [facility] Last Admin: 03/01/17 08:26 Dose: 81 mg Atorvastatin Calcium (Lipitor) 40 mg PO DAILY@2100 [facility] Last Admin: 03/01/17 21:22 Dose: 40 mg Clopidogrel Bisulfate (Plavix) 75 mg PO DAILY [facility] Last Admin: 03/01/17 11:40 Dose: 75 mg Enoxaparin Sodium (Lovenox) 30 mg SC DAILY [facility] PRN Reason: Protocol Last Admin: 03/01/17 08:28 Dose: 30 mg Glipizide (Glucotrol) 10 mg PO BIDAC [facility] Last Admin: 03/01/17 16:46 Dose: 10 mg Hydrochlorothiazide (Microzide) 12.5 mg PO DAILY [facility] Last Admin: 03/01/17 08:28 Dose: 12.5 mg Insulin Detemir (Levemir) 12 units SC HS [facility] Last Admin: 03/01/17 21:22 Dose: 12 u Insulin Human Regular (Humulin R) 0 units SC ACHS [facility] PRN Reason: Protocol Last Admin: 03/02/17 06:37 Dose: Not Given Insulin Lispro Protam/Lispro Human (Humalog Mix 75/25) 14 units SC ACB [facility] Last Admin: 03/01/17 11:35 Dose: 14 units Insulin Lispro Protam/Lispro Human (Humalog Mix 75/25) 6 units SC ACD [facility] Last Admin: 03/01/17 16:46 Dose: 6 units Lisinopril (Zestril) 20 mg PO Q12 [facility] Last Admin: 03/01/17 21:21 Dose: 20 mg Memantine (Namenda) 5 mg PO DAILY [facility] Last Admin: 03/01/17 08:29 Dose: 5 mg Sitagliptin Phosphate (Januvia) 50 mg PO DAILY [facility] - Labs Labs: 02/28/17 05:25 03/01/17 04:40 PT 12.8 Seconds (9.8-13.1) 02/26/17 17:57 INR 1.2 (0.9-1.2) 02/26/17 17:57 APTT 29.2 Seconds (25.6-37.1) 02/26/17 17:57 - Respiratory Exam Respiratory Exam: Clear to Ausculation Bilateral - Cardiovascular Exam Cardiovascular Exam: REGULAR RHYTHM, +S1, +S2 - Extremities Exam Extremities Exam: Normal Inspection - Additional Findings Additional findings: RISK CONTROL FIELD REPRESENTATIVE NSR ECHO MILD CONCENTRIC LVH, LVEF ~ 60% NEUROLOGY FU NOTE REVIEWED Assessment and Plan - Assessment and Plan (Free Text) Assessment: HYPERTENSION 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
--- NOTE | 2017-03-02 08:03 | CP.PCM.PN ---
Subjective - Date & Time of Evaluation Date of Evaluation: 03/02/17 Time of Evaluation: 08:01 - Subjective Subjective: Ms. Simon was seen and examined at the bedside. She is alert, oriented with episode of confusion (time). She denies any headache, dizziness, lightheadedness , nausea, vomiting, numbness, or weakness. She is able to answer all questions appropriately and follow simple commands. There was no untoward events overnight. Objective - Vital Signs/Intake and Output Vital Signs (last 24 hours): Temp Pulse Resp BP Pulse Ox 97.6 F 59 L 18 143/65 95 03/02/17 05:00 03/02/17 05:00 03/02/17 05:00 03/02/17 05:00 03/02/17 05:00 Intake and Output: 03/02/17 03/02/17 06:59 18:59 Intake Total 1500 Balance 1500 - Medications Medications: Current Medications Amlodipine Besylate (Norvasc) 10 mg PO DAILY [facility] Last Admin: 03/01/17 08:29 Dose: 10 mg Aspirin (Ecotrin) 81 mg PO DAILY [facility] Last Admin: 03/01/17 08:26 Dose: 81 mg Atorvastatin Calcium (Lipitor) 40 mg PO DAILY@2100 [facility] Last Admin: 03/01/17 21:22 Dose: 40 mg Clopidogrel Bisulfate (Plavix) 75 mg PO DAILY [facility] Last Admin: 03/01/17 11:40 Dose: 75 mg Enoxaparin Sodium (Lovenox) 30 mg SC DAILY [facility] PRN Reason: Protocol Last Admin: 03/01/17 08:28 Dose: 30 mg Glipizide (Glucotrol) 10 mg PO BIDAC [facility] Last Admin: 03/01/17 16:46 Dose: 10 mg Hydrochlorothiazide (Microzide) 12.5 mg PO DAILY [facility] Last Admin: 03/01/17 08:28 Dose: 12.5 mg Insulin Detemir (Levemir) 12 units SC HS [facility] Last Admin: 03/01/17 21:22 Dose: 12 u Insulin Human Regular (Humulin R) 0 units SC ACHS [facility] PRN Reason: Protocol Last Admin: 03/02/17 06:37 Dose: Not Given Insulin Lispro Protam/Lispro Human (Humalog Mix 75/25) 14 units SC ACB [facility] Last Admin: 03/01/17 11:35 Dose: 14 units Insulin Lispro Protam/Lispro Human (Humalog Mix 75/25) 6 units SC ACD [facility] Last Admin: 03/01/17 16:46 Dose: 6 units Lisinopril (Zestril) 20 mg PO Q12 [facility] Last Admin: 03/01/17 21:21 Dose: 20 mg Memantine (Namenda) 5 mg PO DAILY [facility] Last Admin: 03/01/17 08:29 Dose: 5 mg Sitagliptin Phosphate (Januvia) 50 mg PO DAILY [facility] - Labs Labs: 02/28/17 05:25 03/01/17 04:40 PT 12.8 Seconds (9.8-13.1) 02/26/17 17:57 INR 1.2 (0.9-1.2) 02/26/17 17:57 APTT 29.2 Seconds (25.6-37.1) 02/26/17 17:57 - Constitutional Appears: No Acute Distress - Head Exam Head Exam: ATRAUMATIC - Neurological Exam Neurological Exam: Alert, Awake, Normal Gait Neuro motor strength exam: Left Upper Extremity: 5, Right Upper Extremity: 5, Left Lower Extremity: 5, Right Lower Extremity: 5 Additional comments: She is able to answer all questions appropriately and follow simple commands. Assessment and Plan (1) Altered mental status Assessment & Plan: Case discussed with Dr. Ruelas, continue all current medical, physical, and occupational therapies. Status: Acute
[2017-03-02] MEDS: Enoxaparin 30 mg Syringe SC SCH (09:22)
[2017-03-02] MEDS: Insulin Lispro Mix 75/25 100 units/ml (HumaLog) 10ml SC SCH (09:23)
--- NOTE | 2017-03-02 11:25 | CP.PCM.PCO ---
Assessment/Plan - Assessment and Plan (Free Text) Assessment: Patient will benefit from TCU for diabetic management and Insulin education
--- NOTE | 2017-03-02 13:29 | PN ---
DATE: ENDOCRINOLOGY FOLLOWUP NOTE LOCATION: In room 418, bed 1. SUBJECTIVE: This is an 87-year-old female with recent uncontrolled type 2 insulin-requiring diabetes now being followed closely for metabolic management. Her glycemic levels are fluctuating but improved, and the latest glucose have ranged from 126 to 164 and 249 mg/dL. Her latest chemistry showed a BUN of 18, sodium 144, potassium 3.5, chloride 105, CO2 of 29, glucose 110, and creatinine 0.8. ASSESSMENT AND PLAN: So at this time, we will modify once again her premixed insulin regimen and increase the Humalog 75/25 to 16 units subcu a.c. breakfast daily as ordered. We will continue the lower dosing pre-dinner time as ordered, which she is Humalog 75/25 given as 6 units subcu a.c. dinner daily. We will continue also her basal insulin given as Levemir at 12 units subcu at bedtime daily as ordered with Januvia at 50 mg once daily and glipizide as 10 mg b.i.d. before meals as given. We will titrate incrementally as indicated to optimize metabolic control. The biggest concern at this time is the patient's progressive dementia and increasing bouts of confusion, disorientation and frequent lapses of memory and forgetfulness that she is unable to self-administer her own insulin at home, nor do any glucose monitoring, not even take her consistent meals on time. We will consult with Radiation Protection Engineer and awaiting final decision regarding the possibility of long-term care. We will follow. Shanthi Correa MD
[2017-03-02 13:36] VITALS: BP 175/69; PULSE 66; RESP 20; TEMP 97.9; O2SAT 96
[2017-03-03] MEDS ORDERED: Insulin Lispro Mix 75/25 100 units/ml (HumaLog) 10ml SC SCH (07:30)
== END 2017-03-02 13:55 | DRG 79 ==
LOC: H.ER 16:43 → H.ERHOLD 20:33 → H.TEL 02-27 02:03 → OBSVTOIN 02-27 10:55
PROVIDERS: ADMIT Family Medicine Geriatric Medicine; ATTEND Family Medicine Geriatric Medicine
PROC: 3E0234Z Introduction of Serum, Toxoid and Vaccine into Muscle, Percutaneous Approach (ICD-10-PCS; principal; 2017-02-27)
DX: I67.4 Hypertensive encephalopathy (principal); E11.51 Type 2 diabetes mellitus with diabetic peripheral angiopathy without gangrene; E11.65 Type 2 diabetes mellitus with hyperglycemia; F03.90 Unspecified dementia, unspecified severity, without behavioral disturbance, psychotic disturbance, mood disturbance, and anxiety; D32.0 Benign neoplasm of cerebral meninges; E78.5 Hyperlipidemia, unspecified; I25.10 Atherosclerotic heart disease of native coronary artery without angina pectoris; Z91.19 Patient's noncompliance with other medical treatment and regimen; M19.90 Unspecified osteoarthritis, unspecified site; Z23 Encounter for immunization; Z79.4 Long term (current) use of insulin; Z87.820 Personal history of traumatic brain injury

== ENCOUNTER 2017-03-02 13:19 | Inpatient (IN) | payer OTHER, MEDICAID ==
[2017-03-02 13:45] VITALS: BMI 27.1
[2017-03-02] MEDS ORDERED: Tuberculin 5 Units/0.1 ml Inj ID ONE (14:32)
[2017-03-02 15:31] VITALS: RESP 20
[2017-03-02] MEDS: Insulin Regular 100 units/ml SC SCH ×2 (17:25→21:10)
[2017-03-02] MEDS: Insulin Lispro Mix 75/25 100 units/ml (HumaLog) 10ml SC SCH (17:25)
--- NOTE | 2017-03-02 17:28 | CP.PCM.PN ---
Subjective - Date & Time of Evaluation Date of Evaluation: 03/02/17 Time of Evaluation: 22:22 - Subjective Subjective: 87 yo admitted for management of DM / HTN and deconditioning Objective - Vital Signs/Intake and Output Vital Signs (last 24 hours): Temp Pulse Resp BP Pulse Ox 98.1 F 67 20 145/72 98 03/02/17 15:37 03/02/17 15:37 03/02/17 15:37 03/02/17 15:37 03/02/17 15:37 - Medications Medications: Current Medications Amlodipine Besylate (Norvasc) 10 mg PO DAILY [facility] Aspirin (Ecotrin) 81 mg PO DAILY [facility] Atorvastatin Calcium (Lipitor) 40 mg PO DAILY@2100 [facility] Clopidogrel Bisulfate (Plavix) 75 mg PO DAILY [facility] Enoxaparin Sodium (Lovenox) 30 mg SC DAILY [facility] PRN Reason: Protocol Glipizide (Glucotrol) 10 mg PO BIDAC [facility] Hydrochlorothiazide (Microzide) 12.5 mg PO DAILY [facility] Insulin Detemir (Levemir) 12 units SC HS [facility] Insulin Human Regular (Humulin R) 0 units SC ACHS [facility] PRN Reason: Protocol Insulin Lispro Protam/Lispro Human (Humalog Mix 75/25) 6 units SC ACD [facility] Insulin Lispro Protam/Lispro Human (Humalog Mix 75/25) 14 units SC ACB [facility] Lisinopril (Zestril) 20 mg PO Q12 [facility] Memantine (Namenda) 5 mg PO DAILY [facility] - Respiratory Exam Respiratory Exam: NORMAL BREATHING PATTERN - Cardiovascular Exam Cardiovascular Exam: REGULAR RHYTHM - GI/Abdominal Exam GI & Abdominal Exam: Normal Bowel Sounds Assessment and Plan - Assessment and Plan (Free Text) Assessment: NIDDM noncompliance with meds Endo- unsafe d/c home Uncontrolled hypertension 2 to noncompliance Cardiology Meds adjusted Dementia MID? 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
[2017-03-02] MEDS: Insulin Detemir 100 Units/ml Inj SC SCH (21:06)
[2017-03-03] MEDS: Insulin Regular 100 units/ml SC SCH ×3 (07:01→16:37)
[2017-03-03] MEDS: Insulin Lispro Mix 75/25 100 units/ml (HumaLog) 10ml SC SCH ×2 (09:06→17:07)
[2017-03-03] MEDS: Enoxaparin 30 mg Syringe SC SCH (09:06)
--- NOTE | 2017-03-03 11:16 | PN ---
DATE: ENDOCRINOLOGY FOLLOWUP NOTE LOCATION: [facility], room 710. SUBJECTIVE: This is an 87-year-old female with recent uncontrolled type 2 insulin-requiring diabetes, now being followed closely for metabolic management. Her glycemic levels are fluctuating but improved and the latest glucose levels have ranged from 132 to 154 and 206 mg/dL. She also has progressive dementia with increasing confusion, disorientation, and inability to self-administer her own insulin regimen at home and even do self-glucose monitoring at home with extremely variable oral intake and erratic patterns and timing as noted. She is undergoing physical and occupational therapy and also being evaluated by social insurance adviser regarding possibility of a long-term care facility for patient safety at this time. So, for now, we will continue the same premixed and basal insulin to allow for dose equilibration and keep her on the Levemir given as 12 units subcu at bedtime daily as ordered. We will continue her Humalog 75/25 given as 14 units a.c. breakfast and 6 units a.c. dinner as ordered. We will also continue the glipizide given as 10 mg b.i.d. as ordered. We will titrate incrementally as indicated to optimize metabolic control. We will obtain serial chemistries and supplement accordingly as needed. We will follow. Shanthi Correa MD
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
--- NOTE | 2017-03-03 20:54 | CP.PCM.PN ---
Subjective - Date & Time of Evaluation Date of Evaluation: 03/03/17 Time of Evaluation: 22:22 - Subjective Subjective: Doing well Objective - Vital Signs/Intake and Output Vital Signs (last 24 hours): Temp Pulse Resp BP Pulse Ox 98.2 F 74 20 127/63 97 03/03/17 20:24 03/03/17 20:24 03/03/17 20:24 03/03/17 20:24 03/03/17 20:24 - Medications Medications: Current Medications Amlodipine Besylate (Norvasc) 10 mg PO DAILY [facility] Last Admin: 03/03/17 09:07 Dose: 10 mg Aspirin (Ecotrin) 81 mg PO DAILY [facility] Last Admin: 03/03/17 09:07 Dose: 81 mg Atorvastatin Calcium (Lipitor) 40 mg PO DAILY@2100 [facility] Last Admin: 03/02/17 21:01 Dose: 40 mg Clopidogrel Bisulfate (Plavix) 75 mg PO DAILY [facility] Last Admin: 03/03/17 09:07 Dose: 75 mg Donepezil HCl (Aricept) 5 mg PO [facility] Enoxaparin Sodium (Lovenox) 30 mg SC DAILY [facility] PRN Reason: Protocol Last Admin: 03/03/17 09:06 Dose: 30 mg Glipizide (Glucotrol) 10 mg PO BIDAC [facility] Last Admin: 03/03/17 17:07 Dose: 10 mg Hydrochlorothiazide (Microzide) 12.5 mg PO DAILY [facility] Last Admin: 03/03/17 09:06 Dose: 12.5 mg Insulin Detemir (Levemir) 12 units SC HS [facility] Last Admin: 03/02/17 21:06 Dose: 12 unit Insulin Human Regular (Humulin R) 0 units SC ACHS [facility] PRN Reason: Protocol Last Admin: 03/03/17 16:37 Dose: Not Given Insulin Lispro Protam/Lispro Human (Humalog Mix 75/25) 6 units SC ACD [facility] Last Admin: 03/03/17 17:07 Dose: 6 units Insulin Lispro Protam/Lispro Human (Humalog Mix 75/25) 14 units SC ACB [facility] Last Admin: 03/03/17 09:06 Dose: 14 units Lisinopril (Zestril) 20 mg PO Q12 [facility] Last Admin: 03/03/17 09:06 Dose: 20 mg Memantine (Namenda) 5 mg PO DAILY [facility] Last Admin: 03/03/17 09:06 Dose: 5 mg - Respiratory Exam Respiratory Exam: NORMAL BREATHING PATTERN - Cardiovascular Exam Cardiovascular Exam: REGULAR RHYTHM - GI/Abdominal Exam GI & Abdominal Exam: Normal Bowel Sounds Assessment and Plan - Assessment and Plan (Free Text) Assessment: NIDDM noncompliance with meds Endo- unsafe d/c home Uncontrolled hypertension 2 to noncompliance Cardiology Meds adjusted Dementia MID? 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
[2017-03-03] MEDS: Insulin Detemir 100 Units/ml Inj SC SCH (22:13)
[2017-03-04] MEDS: Insulin Regular 100 units/ml SC SCH ×5 (00:06→22:49)
[2017-03-04] MEDS: Insulin Lispro Mix 75/25 100 units/ml (HumaLog) 10ml SC SCH ×2 (08:05→17:11)
[2017-03-04 08:18] LABS: BASO % 0.6 % (0.0-2.0); EOS # 0.1 K/uL (0.0-0.7); EOS % 1.1 % (0.0-4.0); HEMOGLOBIN 13.5 g/dL (12.0-16.0); LYMPH % 42.5 % (20.0-40.0); MEAN CELL VOLUME 88.4 fl (81.0-99.0); MEAN CORPUSCULAR HEMOGLOBIN 29.3 pg (27.0-31.0); MEAN CORPUSCULAR HGB CONC 33.2 g/dL (33.0-37.0); MEAN PLATELET VOLUME 9.7 fl (7.2-11.7); MONO # 0.5 K/uL (0.0-0.8); MONO % 7.3 % (0.0-10.0); NEUT # 3.5 K/uL (1.8-7.0); NEUT % 48.5 % (50.0-75.0); RBC 4.61 Mil/uL (3.80-5.20); WHITE BLOOD COUNT 7.2 K/uL (4.8-10.8)
[2017-03-04 08:36] LABS: ALB/GLOB RATIO 1.3 (1.0-2.1); ALBUMIN 4.4 g/dL (3.5-5.0); ALT/SGPT 59 U/L (9-52); AST/SGOT 54 U/L (14-36); BLOOD UREA NITROGEN 24 mg/dl (7-17); CALCIUM 9.6 mg/dL (8.4-10.2); GFR AFRICAN-AMERICAN > 60; GFR NON-AFRICAN AMERICAN 52
[2017-03-04] MEDS: Enoxaparin 30 mg Syringe SC SCH (08:46)
--- NOTE | 2017-03-04 08:47 | CP.PCM.PN ---
Subjective - Date & Time of Evaluation Date of Evaluation: 03/04/17 Time of Evaluation: 08:44 - Subjective Subjective: Ms. Simon was seen and examined at the bedside. She is alert, oriented and claims that her forgetfulness is slightly improved. She states of remembering wher she put her staff. She denies any headache, dizziness, lightheadedness, nause, or vomiting. She claims of receiving various types of therapy. There was no untoward events overnight. Objective - Vital Signs/Intake and Output Vital Signs (last 24 hours): Temp Pulse Resp BP Pulse Ox 97.7 F 74 20 141/64 98 03/04/17 08:15 03/04/17 08:15 03/04/17 08:15 03/04/17 08:15 03/04/17 08:15 - Medications Medications: Current Medications Amlodipine Besylate (Norvasc) 10 mg PO DAILY [facility] Last Admin: 03/03/17 09:07 Dose: 10 mg Aspirin (Ecotrin) 81 mg PO DAILY [facility] Last Admin: 03/03/17 09:07 Dose: 81 mg Atorvastatin Calcium (Lipitor) 40 mg PO DAILY@2100 [facility] Last Admin: 03/03/17 21:48 Dose: 40 mg Clopidogrel Bisulfate (Plavix) 75 mg PO DAILY [facility] Last Admin: 03/03/17 09:07 Dose: 75 mg Donepezil HCl (Aricept) 5 mg PO HS [facility] Last Admin: 03/03/17 21:53 Dose: 5 mg Enoxaparin Sodium (Lovenox) 30 mg SC DAILY [facility] PRN Reason: Protocol Last Admin: 03/03/17 09:06 Dose: 30 mg Glipizide (Glucotrol) 10 mg PO BIDAC [facility] Last Admin: 03/04/17 08:05 Dose: 10 mg Hydrochlorothiazide (Microzide) 12.5 mg PO DAILY [facility] Last Admin: 03/03/17 09:06 Dose: 12.5 mg Insulin Detemir (Levemir) 12 units SC HS [facility] Last Admin: 03/03/17 22:13 Dose: 12 unit Insulin Human Regular (Humulin R) 0 units SC ACHS [facility] PRN Reason: Protocol Last Admin: 03/04/17 07:14 Dose: Not Given Insulin Lispro Protam/Lispro Human (Humalog Mix 75/25) 6 units SC ACD [facility] Last Admin: 03/03/17 17:07 Dose: 6 units Insulin Lispro Protam/Lispro Human (Humalog Mix 75/25) 14 units SC ACB [facility] Last Admin: 03/04/17 08:05 Dose: 14 units Lisinopril (Zestril) 20 mg PO Q12 [facility] Last Admin: 03/04/17 00:11 Dose: 20 mg Memantine (Namenda) 5 mg PO DAILY [facility] Last Admin: 03/03/17 09:06 Dose: 5 mg - Labs Labs: 03/04/17 08:03 03/04/17 08:03 - Constitutional Appears: No Acute Distress - Head Exam Head Exam: ATRAUMATIC - Neurological Exam Neurological Exam: Alert, Awake, CN II-XII Intact, Normal Gait Neuro motor strength exam: Left Upper Extremity: 5, Right Upper Extremity: 5, Left Lower Extremity: 5, Right Lower Extremity: 5 Additional comments: Neurological unchanged from previous examination. Assessment and Plan (1) Dementia Assessment & Plan: Case discussed with Dr. Ruelas, continue all current medical, physical, and occupational therapies. Recommend Cognitive therapy is also recommended along with PT/OT Status: Chronic
--- NOTE | 2017-03-04 12:10 | PN ---
DATE: ENDOCRINOLOGY FOLLOWUP NOTE LOCATION: Room 710. SUBJECTIVE: This is an 87-year-old female with recent uncontrolled type 2 insulin-requiring diabetes, presenting here with hyperglycemic accelerations and is now improving clinically and metabolically as noted thereof. The biggest concern at this time is the patient's increasing dementia and lapses of forgetfulness, memory and increasing confusion and disorientation impeding her home insulin self-administration and also glucose monitoring with very erratic meal patterns as noted. Her glucose plus her glycemic values have improved, but are fluctuating and have ranged from 156 to 173 and 224 mg/dL. The latest chemistry showed a BUN of 24, sodium 141, potassium 3.6, chloride 102, CO2 of 29, glucose 169 and creatinine 1.0. So at this time we will modify once again her premixed insulin regimen and increase the Humalog 75/25 to 16 units subcu before breakfast daily as ordered. We will continue the same dosing of the Humalog 75/25 given at dinnertime at 6 units subcu as ordered. We will also continue the basal insulin given as Levemir at 12 units subcu at bedtime daily as ordered. We will titrate incrementally as indicated to optimize metabolic control. We will also continue the glipizide given as 10 mg b.i.d. before meals as ordered. We will titrate incrementally as indicated to optimize metabolic control. We will follow up with you. Shanthi Correa MD
--- NOTE | 2017-03-04 12:47 | CP.PCM.PN ---
Subjective - Date & Time of Evaluation Date of Evaluation: 03/04/17 Time of Evaluation: 12:30 - Subjective Subjective: NO COMPLAINTS Objective - Vital Signs/Intake and Output Vital Signs (last 24 hours): Temp Pulse Resp BP Pulse Ox 97.7 F 74 20 141/64 98 03/04/17 08:15 03/04/17 08:45 03/04/17 08:15 03/04/17 08:45 03/04/17 08:15 - Medications Medications: Current Medications Amlodipine Besylate (Norvasc) 10 mg PO DAILY [facility] Last Admin: 03/04/17 08:45 Dose: 10 mg Aspirin (Ecotrin) 81 mg PO DAILY [facility] Last Admin: 03/04/17 08:48 Dose: 81 mg Atorvastatin Calcium (Lipitor) 40 mg PO DAILY@2100 [facility] Last Admin: 03/03/17 21:48 Dose: 40 mg Clopidogrel Bisulfate (Plavix) 75 mg PO DAILY [facility] Last Admin: 03/04/17 08:46 Dose: 75 mg Donepezil HCl (Aricept) 5 mg PO [facility] Last Admin: 03/03/17 21:53 Dose: 5 mg Enoxaparin Sodium (Lovenox) 30 mg SC DAILY [facility] PRN Reason: Protocol Last Admin: 03/04/17 08:46 Dose: 30 mg Glipizide (Glucotrol) 10 mg PO BIDAC [facility] Last Admin: 03/04/17 08:05 Dose: 10 mg Hydrochlorothiazide (Microzide) 12.5 mg PO DAILY [facility] Last Admin: 03/04/17 08:45 Dose: 12.5 mg Insulin Detemir (Levemir) 12 units SC HS [facility] Last Admin: 03/03/17 22:13 Dose: 12 unit Insulin Human Regular (Humulin R) 0 units SC ACHS [facility] PRN Reason: Protocol Last Admin: 03/04/17 12:01 Dose: Not Given Insulin Lispro Protam/Lispro Human (Humalog Mix 75/25) 6 units SC ACD [facility] Last Admin: 03/03/17 17:07 Dose: 6 units Insulin Lispro Protam/Lispro Human (Humalog Mix 75/25) 16 units SC ACB [facility] Lisinopril (Zestril) 20 mg PO Q12 [facility] Last Admin: 03/04/17 08:45 Dose: 20 mg Memantine (Namenda) 5 mg PO DAILY [facility] Last Admin: 03/04/17 08:45 Dose: 5 mg - Labs Labs: 03/04/17 08:03 03/04/17 08:03 - Respiratory Exam Respiratory Exam: Clear to Ausculation Bilateral - Cardiovascular Exam Cardiovascular Exam: REGULAR RHYTHM, +S1, +S2 - Extremities Exam Extremities Exam: Normal Inspection Assessment and Plan - Assessment and Plan (Free Text) Assessment: HYPERTENSION CEREBRAL ARTERY ATHEROSCLEROSIS DEMENTIA DM Plan: CONTINUE ASPIRIN, CLOPIDOGREL, LOVENOX, AMLODIPINE, LISINOPRIL, ATORVASTATIN AND DM MEDICATIONS
--- NOTE | 2017-03-04 19:29 | CP.PCM.PN ---
Subjective - Date & Time of Evaluation Date of Evaluation: 03/04/17 Time of Evaluation: 22:22 - Subjective Subjective: Above noted Objective - Vital Signs/Intake and Output Vital Signs (last 24 hours): Temp Pulse Resp BP Pulse Ox 97.9 F 68 20 142/68 99 03/04/17 15:51 03/04/17 15:51 03/04/17 15:51 03/04/17 15:51 03/04/17 15:51 - Medications Medications: Current Medications Amlodipine Besylate (Norvasc) 10 mg PO DAILY [facility] Last Admin: 03/04/17 08:45 Dose: 10 mg Aspirin (Ecotrin) 81 mg PO DAILY [facility] Last Admin: 03/04/17 08:48 Dose: 81 mg Atorvastatin Calcium (Lipitor) 40 mg PO DAILY@2100 [facility] Last Admin: 03/03/17 21:48 Dose: 40 mg Clopidogrel Bisulfate (Plavix) 75 mg PO DAILY [facility] Last Admin: 03/04/17 08:46 Dose: 75 mg Donepezil HCl (Aricept) 5 mg PO [facility] Last Admin: 03/03/17 21:53 Dose: 5 mg Enoxaparin Sodium (Lovenox) 30 mg SC DAILY [facility] PRN Reason: Protocol Last Admin: 03/04/17 08:46 Dose: 30 mg Glipizide (Glucotrol) 10 mg PO BIDAC [facility] Last Admin: 03/04/17 17:11 Dose: 10 mg Hydrochlorothiazide (Microzide) 12.5 mg PO DAILY [facility] Last Admin: 03/04/17 08:45 Dose: 12.5 mg Insulin Detemir (Levemir) 12 units SC HS [facility] Last Admin: 03/03/17 22:13 Dose: 12 unit Insulin Human Regular (Humulin R) 0 units SC ACHS [facility] PRN Reason: Protocol Last Admin: 03/04/17 16:27 Dose: Not Given Insulin Lispro Protam/Lispro Human (Humalog Mix 75/25) 6 units SC ACD [facility] Last Admin: 03/04/17 17:11 Dose: 6 units Insulin Lispro Protam/Lispro Human (Humalog Mix 75/25) 16 units SC ACB [facility] Lisinopril (Zestril) 20 mg PO Q12 [facility] Last Admin: 03/04/17 08:45 Dose: 20 mg Memantine (Namenda) 5 mg PO DAILY [facility] Last Admin: 03/04/17 08:45 Dose: 5 mg - Labs Labs: 03/04/17 08:03 03/04/17 08:03 - Respiratory Exam Respiratory Exam: NORMAL BREATHING PATTERN - Cardiovascular Exam Cardiovascular Exam: REGULAR RHYTHM - GI/Abdominal Exam GI & Abdominal Exam: Normal Bowel Sounds Assessment and Plan - Assessment and Plan (Free Text) Assessment: NIDDM noncompliance with meds Endo- unsafe d/c home Uncontrolled hypertension 2 to noncompliance Cardiology Meds adjusted Dementia MID? 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
[2017-03-04] MEDS: Insulin Detemir 100 Units/ml Inj SC SCH (22:47)
[2017-03-05] MEDS: Enoxaparin 30 mg Syringe SC SCH (08:12)
[2017-03-05] MEDS: Insulin Lispro Mix 75/25 100 units/ml (HumaLog) 10ml SC SCH ×2 (08:13→17:18)
[2017-03-05] MEDS: Insulin Regular 100 units/ml SC SCH ×4 (08:18→21:03)
--- NOTE | 2017-03-05 11:13 | CP.PCM.PN ---
Subjective - Date & Time of Evaluation Date of Evaluation: 03/05/17 Time of Evaluation: 11:10 - Subjective Subjective: Ms. Simon was seen and examined at the bedside. She is alert, with episode of forgetfulness. She is unable to verbalize time, person, and place. She denies any headache, dizziness, lightheadedness, nausea, or vomiting. There was no untoward events overnight. Objective - Vital Signs/Intake and Output Vital Signs (last 24 hours): Temp Pulse Resp BP Pulse Ox 97.7 F 60 20 123/57 L 98 03/05/17 08:11 03/05/17 08:14 03/05/17 08:11 03/05/17 08:14 03/05/17 08:11 - Medications Medications: Current Medications Amlodipine Besylate (Norvasc) 10 mg PO DAILY [facility] Last Admin: 03/05/17 08:14 Dose: 10 mg Aspirin (Ecotrin) 81 mg PO DAILY [facility] Last Admin: 03/05/17 08:14 Dose: 81 mg Atorvastatin Calcium (Lipitor) 40 mg PO DAILY@2100 [facility] Last Admin: 03/04/17 22:48 Dose: 40 mg Clopidogrel Bisulfate (Plavix) 75 mg PO DAILY [facility] Last Admin: 03/05/17 08:14 Dose: 75 mg Donepezil HCl (Aricept) 5 mg PO HS [facility] Last Admin: 03/04/17 22:50 Dose: 5 mg Enoxaparin Sodium (Lovenox) 30 mg SC DAILY [facility] PRN Reason: Protocol Last Admin: 03/05/17 08:12 Dose: 30 mg Glipizide (Glucotrol) 10 mg PO BIDAC [facility] Last Admin: 03/05/17 08:14 Dose: 10 mg Hydrochlorothiazide (Microzide) 12.5 mg PO DAILY [facility] Last Admin: 03/05/17 08:14 Dose: 12.5 mg Insulin Detemir (Levemir) 12 units SC HS [facility] Last Admin: 03/04/17 22:47 Dose: 12 unit Insulin Human Regular (Humulin R) 0 units SC ACHS [facility] PRN Reason: Protocol Last Admin: 03/05/17 08:18 Dose: Not Given Insulin Lispro Protam/Lispro Human (Humalog Mix 75/25) 6 units SC ACD [facility] Last Admin: 03/04/17 17:11 Dose: 6 units Insulin Lispro Protam/Lispro Human (Humalog Mix 75/25) 16 units SC ACB [facility] Last Admin: 03/05/17 08:13 Dose: 16 units Lisinopril (Zestril) 20 mg PO Q12 [facility] Last Admin: 03/05/17 08:13 Dose: 20 mg Memantine (Namenda) 5 mg PO DAILY [facility] Last Admin: 03/05/17 08:14 Dose: 5 mg - Labs Labs: 03/04/17 08:03 03/04/17 08:03 - Constitutional Appears: No Acute Distress - Head Exam Head Exam: ATRAUMATIC - Neurological Exam Neurological Exam: Alert, Awake, Normal Gait Neuro motor strength exam: Left Upper Extremity: 5, Right Upper Extremity: 5, Left Lower Extremity: 5, Right Lower Extremity: 5 Additional comments: Neurological unchanged from previous examination. Assessment and Plan (1) Dementia Assessment & Plan: Case discussed with Dr. Ruelas, continue all current medical, physical, occupational, and speech (Cognitive ) therapies. There is no new recommendation from neurology. Status: Chronic
--- NOTE | 2017-03-05 17:53 | PN ---
DATE: ENDOCRINOLOGY FOLLOWUP LOCATION: Room 710, [facility]. SUBJECTIVE: This is an 87-year-old female with recent uncontrolled type 2 insulin-requiring diabetes, now being followed closely for metabolic management. Her glycemic levels are fluctuating with much improvement at this time and the latest glucose levels have ranged from 123 to 136 and 242 mg/dL. The latest chemistry shows a BUN of 24, sodium 141, potassium 3.6, chloride 102, CO2 of 29, glucose 169, and creatinine 1.0. So, at this time, we will continue the same basal and premixed insulin regimen as ordered with Humalog 75/25 given as 16 units before breakfast and 6 units before dinner as ordered. We will continue the Levemir given as 12 units subcu at bedtime daily as given to allow for dose equilibration. We will continue also the low-dose correction scale using Humalog insulin as given. We will continue the oral hypoglycemic agents given as glipizide at 10 mg b.i.d. as ordered. We will obtain serial chemistries and supplement accordingly as needed. We will follow this. Shanthi Correa MD
--- NOTE | 2017-03-05 19:56 | CP.PCM.PN ---
Subjective - Date & Time of Evaluation Date of Evaluation: 03/05/17 Time of Evaluation: 22:22 - Subjective Subjective: Above noted Objective - Vital Signs/Intake and Output Vital Signs (last 24 hours): Temp Pulse Resp BP Pulse Ox 97.7 F 65 20 148/67 95 03/05/17 19:42 03/05/17 19:42 03/05/17 19:42 03/05/17 19:42 03/05/17 19:42 - Medications Medications: Current Medications Amlodipine Besylate (Norvasc) 10 mg PO DAILY [facility] Last Admin: 03/05/17 08:14 Dose: 10 mg Aspirin (Ecotrin) 81 mg PO DAILY [facility] Last Admin: 03/05/17 08:14 Dose: 81 mg Atorvastatin Calcium (Lipitor) 40 mg PO DAILY@2100 [facility] Last Admin: 03/04/17 22:48 Dose: 40 mg Clopidogrel Bisulfate (Plavix) 75 mg PO DAILY [facility] Last Admin: 03/05/17 08:14 Dose: 75 mg Donepezil HCl (Aricept) 5 mg PO HS [facility] Last Admin: 03/04/17 22:50 Dose: 5 mg Enoxaparin Sodium (Lovenox) 30 mg SC DAILY [facility] PRN Reason: Protocol Last Admin: 03/05/17 08:12 Dose: 30 mg Glipizide (Glucotrol) 10 mg PO BIDAC [facility] Last Admin: 03/05/17 17:53 Dose: 10 mg Hydrochlorothiazide (Microzide) 12.5 mg PO DAILY [facility] Last Admin: 03/05/17 08:14 Dose: 12.5 mg Insulin Detemir (Levemir) 12 units SC HS [facility] Last Admin: 03/04/17 22:47 Dose: 12 unit Insulin Human Regular (Humulin R) 0 units SC ACHS [facility] PRN Reason: Protocol Last Admin: 03/05/17 17:13 Dose: Not Given Insulin Lispro Protam/Lispro Human (Humalog Mix 75/25) 6 units SC ACD [facility] Last Admin: 03/05/17 17:18 Dose: 6 units Insulin Lispro Protam/Lispro Human (Humalog Mix 75/25) 16 units SC ACB [facility] Last Admin: 03/05/17 08:13 Dose: 16 units Lisinopril (Zestril) 20 mg PO Q12 [facility] Last Admin: 03/05/17 08:13 Dose: 20 mg Memantine (Namenda) 5 mg PO DAILY [facility] Last Admin: 03/05/17 08:14 Dose: 5 mg - Labs Labs: 03/04/17 08:03 03/04/17 08:03 - Respiratory Exam Respiratory Exam: Wheezes, NORMAL BREATHING PATTERN - Cardiovascular Exam Cardiovascular Exam: REGULAR RHYTHM - GI/Abdominal Exam GI & Abdominal Exam: Normal Bowel Sounds Assessment and Plan - Assessment and Plan (Free Text) Assessment: NIDDM noncompliance with meds Endo- unsafe d/c home Uncontrolled hypertension 2 to noncompliance- Improved Cardiology Meds adjusted Dementia MID? 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
[2017-03-05] MEDS: Insulin Detemir 100 Units/ml Inj SC SCH (21:01)
[2017-03-06] MEDS: Insulin Regular 100 units/ml SC SCH ×4 (06:50→21:58)
[2017-03-06] MEDS: Insulin Lispro Mix 75/25 100 units/ml (HumaLog) 10ml SC SCH ×2 (08:18→16:58)
[2017-03-06] MEDS: Enoxaparin 30 mg Syringe SC SCH (08:39)
--- NOTE | 2017-03-06 11:54 | CP.PCM.PN ---
Subjective - Date & Time of Evaluation Date of Evaluation: 03/06/17 Time of Evaluation: 08:30 - Subjective Subjective: NO COMPLAINTS OF CHEST PAIN OR SOB Objective - Vital Signs/Intake and Output Vital Signs (last 24 hours): Temp Pulse Resp BP Pulse Ox 97.0 F L 69 20 148/72 97 03/06/17 08:41 03/06/17 08:44 03/06/17 08:41 03/06/17 08:44 03/06/17 08:41 - Medications Medications: Current Medications Amlodipine Besylate (Norvasc) 10 mg PO DAILY [facility] Last Admin: 03/06/17 08:39 Dose: 10 mg Aspirin (Ecotrin) 81 mg PO DAILY [facility] Last Admin: 03/06/17 08:39 Dose: 81 mg Atorvastatin Calcium (Lipitor) 40 mg PO DAILY@2100 [facility] Last Admin: 03/05/17 21:00 Dose: 40 mg Clopidogrel Bisulfate (Plavix) 75 mg PO DAILY [facility] Last Admin: 03/06/17 08:44 Dose: 75 mg Donepezil HCl (Aricept) 5 mg PO HS [facility] Last Admin: 03/05/17 21:01 Dose: 5 mg Glipizide (Glucotrol) 10 mg PO BIDAC [facility] Last Admin: 03/06/17 06:48 Dose: 10 mg Hydrochlorothiazide (Microzide) 12.5 mg PO DAILY [facility] Last Admin: 03/06/17 08:39 Dose: 12.5 mg Insulin Detemir (Levemir) 12 units SC HS [facility] Last Admin: 03/05/17 21:01 Dose: 12 unit Insulin Human Regular (Humulin R) 0 units SC [facility] PRN Reason: Protocol Last Admin: 03/06/17 06:50 Dose: Not Given Insulin Lispro Protam/Lispro Human (Humalog Mix 75/25) 6 units SC ACD [facility] Last Admin: 03/05/17 17:18 Dose: 6 units Insulin Lispro Protam/Lispro Human (Humalog Mix 75/25) 16 units SC ACB [facility] Last Admin: 03/06/17 08:18 Dose: 16 units Lisinopril (Zestril) 20 mg PO Q12 [facility] Last Admin: 03/06/17 08:44 Dose: 20 mg Memantine (Namenda) 5 mg PO DAILY [facility] Last Admin: 03/06/17 08:39 Dose: 5 mg - Labs Labs: 03/04/17 08:03 03/04/17 08:03 - Respiratory Exam Respiratory Exam: Clear to Ausculation Bilateral - Cardiovascular Exam Cardiovascular Exam: REGULAR RHYTHM, +S1, +S2 - Extremities Exam Extremities Exam: Normal Inspection Assessment and Plan - Assessment and Plan (Free Text) Assessment: HYPERTENSION DEMENTIA CEREBRAL VASCULAR DISEASE Plan: CONTINUE ASPIRIN, CLOPIDOGREL, AMLODIPINE, LISINOPRIL, ATORVASTATIN AND INSULIN
--- NOTE | 2017-03-06 17:20 | CP.PCM.PN ---
Subjective - Date & Time of Evaluation Date of Evaluation: 03/06/17 Time of Evaluation: 22:22 - Subjective Subjective: Above noted Objective - Vital Signs/Intake and Output Vital Signs (last 24 hours): Temp Pulse Resp BP Pulse Ox 98.1 F 67 20 154/64 H 96 03/06/17 16:28 03/06/17 16:28 03/06/17 16:28 03/06/17 16:28 03/06/17 16:28 - Medications Medications: Current Medications Amlodipine Besylate (Norvasc) 10 mg PO DAILY [facility] Last Admin: 03/06/17 08:39 Dose: 10 mg Aspirin (Ecotrin) 81 mg PO DAILY [facility] Last Admin: 03/06/17 08:39 Dose: 81 mg Atorvastatin Calcium (Lipitor) 40 mg PO DAILY@2100 [facility] Last Admin: 03/05/17 21:00 Dose: 40 mg Clopidogrel Bisulfate (Plavix) 75 mg PO DAILY [facility] Last Admin: 03/06/17 08:44 Dose: 75 mg Donepezil HCl (Aricept) 5 mg PO HS [facility] Last Admin: 03/05/17 21:01 Dose: 5 mg Glipizide (Glucotrol) 10 mg PO BIDAC [facility] Last Admin: 03/06/17 16:58 Dose: 10 mg Hydrochlorothiazide (Microzide) 12.5 mg PO DAILY [facility] Last Admin: 03/06/17 08:39 Dose: 12.5 mg Insulin Detemir (Levemir) 12 units SC HS [facility] Last Admin: 03/05/17 21:01 Dose: 12 unit Insulin Human Regular (Humulin R) 0 units SC ACHS [facility] PRN Reason: Protocol Last Admin: 03/06/17 16:47 Dose: Not Given Insulin Lispro Protam/Lispro Human (Humalog Mix 75/25) 6 units SC ACD [facility] Last Admin: 03/06/17 16:58 Dose: 6 units Insulin Lispro Protam/Lispro Human (Humalog Mix 75/25) 16 units SC ACB [facility] Last Admin: 03/06/17 08:18 Dose: 16 units Lisinopril (Zestril) 20 mg PO Q12 [facility] Last Admin: 03/06/17 08:44 Dose: 20 mg Memantine (Namenda) 5 mg PO DAILY [facility] Last Admin: 03/06/17 08:39 Dose: 5 mg - Labs Labs: 12/10/17 08:03 03/04/17 08:03 - Respiratory Exam Respiratory Exam: NORMAL BREATHING PATTERN - Cardiovascular Exam Cardiovascular Exam: REGULAR RHYTHM - GI/Abdominal Exam GI & Abdominal Exam: Normal Bowel Sounds Assessment and Plan - Assessment and Plan (Free Text) Assessment: NIDDM noncompliance with meds Endo- unsafe d/c home Uncontrolled hypertension 2 to noncompliance- Improved Cardiology Meds adjusted Dementia MID? 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
--- NOTE | 2017-03-06 18:06 | PN ---
DATE: ENDOCRINOLOGY FOLLOWUP NOTE LOCATION: Room 710. SUBJECTIVE: This is an 87-year-old female with recent uncontrolled type 2 insulin-requiring diabetes, now being followed closely for metabolic management. Her glycemic levels are fluctuating but much improved at this time and the latest glucose levels are ranging from 125 to 180 mg/dL. Her bedtime glucose was 123 as noted and the latest chemistries showed a BUN of 24, sodium 141, potassium 3.6, chloride 102, CO2 of 29, glucose 169, and creatinine 1.0. So, at this time, we will continue the same premixed and basal insulin to allow for dose equilibration and keep her on the Humalog 75/25 at 16 units a.c. breakfast and 6 units a.c. dinner as ordered. We will continue the Levemir given as 12 units subcu at bedtime daily as given. We will titrate incremental as indicated to optimize metabolic control. We will follow. Shanthi Correa MD
[2017-03-06] MEDS: Insulin Detemir 100 Units/ml Inj SC SCH (21:51)
[2017-03-07] MEDS: Insulin Regular 100 units/ml SC SCH ×4 (06:42→21:03)
[2017-03-07] MEDS: Insulin Lispro Mix 75/25 100 units/ml (HumaLog) 10ml SC SCH ×2 (08:30→17:12)
--- NOTE | 2017-03-07 08:53 | CP.PCM.PN ---
Subjective - Date & Time of Evaluation Date of Evaluation: 03/07/17 Time of Evaluation: 08:51 - Subjective Subjective: Ms. Simon was seen and examined at the bedside. She is alert,oriented. She denies any pain, headache, dizziness, lightheadedness, nausea, or vomiting. She is ambulating around her room in steady gait. There was no untoward events overnight. Objective - Vital Signs/Intake and Output Vital Signs (last 24 hours): Temp Pulse Resp BP Pulse Ox 97.7 F 60 20 142/76 96 03/07/17 08:13 03/07/17 08:32 03/07/17 08:13 03/07/17 08:32 03/07/17 08:13 - Medications Medications: Current Medications Amlodipine Besylate (Norvasc) 10 mg PO DAILY [facility] Last Admin: 03/07/17 08:32 Dose: 10 mg Aspirin (Ecotrin) 81 mg PO DAILY [facility] Last Admin: 03/07/17 08:31 Dose: 81 mg Atorvastatin Calcium (Lipitor) 40 mg PO DAILY@2100 [facility] Clopidogrel Bisulfate (Plavix) 75 mg PO DAILY [facility] Last Admin: 03/07/17 08:32 Dose: 75 mg Donepezil HCl (Aricept) 5 mg PO HS [facility] Last Admin: 03/06/17 21:48 Dose: 5 mg Glipizide (Glucotrol) 10 mg PO BIDAC [facility] Last Admin: 03/07/17 06:52 Dose: 10 mg Hydrochlorothiazide (Microzide) 12.5 mg PO DAILY [facility] Last Admin: 03/07/17 08:31 Dose: 12.5 mg Insulin Detemir (Levemir) 12 units SC HS [facility] Last Admin: 03/06/17 21:51 Dose: 12 unit Insulin Human Regular (Humulin R) 0 units SC ACHS [facility] PRN Reason: Protocol Last Admin: 03/07/17 06:42 Dose: Not Given Insulin Lispro Protam/Lispro Human (Humalog Mix 75/25) 6 units SC ACD [facility] Last Admin: 03/06/17 16:58 Dose: 6 units Insulin Lispro Protam/Lispro Human (Humalog Mix 75/25) 16 units SC ACB [facility] Last Admin: 03/07/17 08:30 Dose: 16 units Lisinopril (Zestril) 20 mg PO Q12 [facility] Last Admin: 03/07/17 08:32 Dose: 20 mg Memantine (Namenda) 5 mg PO DAILY [facility] Last Admin: 03/07/17 08:31 Dose: 5 mg - Labs Labs: 03/04/17 08:03 03/04/17 08:03 - Constitutional Appears: No Acute Distress - Head Exam Head Exam: ATRAUMATIC - Neurological Exam Neurological Exam: Alert, Awake Neuro motor strength exam: Left Upper Extremity: 5, Right Upper Extremity: 5, Left Lower Extremity: 5, Right Lower Extremity: 5 Additional comments: Neurological unchanged from previous examination. Assessment and Plan (1) Dementia Assessment & Plan: Case discussed with Dr. Hall, continue all current medical, physical, occupational, and speech therapies. If patient to be discharge to include dual antiplatelets and statin medications. Status: Chronic
--- NOTE | 2017-03-07 10:16 | CP.PCM.PN ---
Subjective - Date & Time of Evaluation Date of Evaluation: 03/07/17 Time of Evaluation: 09:00 - Subjective Subjective: NO CHEST OR SOB Objective - Vital Signs/Intake and Output Vital Signs (last 24 hours): Temp Pulse Resp BP Pulse Ox 97.7 F 60 20 142/76 96 03/07/17 08:13 03/07/17 08:32 03/07/17 08:13 03/07/17 08:32 03/07/17 08:13 - Medications Medications: Current Medications Amlodipine Besylate (Norvasc) 10 mg PO DAILY [facility] Last Admin: 03/07/17 08:32 Dose: 10 mg Aspirin (Ecotrin) 81 mg PO DAILY [facility] Last Admin: 03/07/17 08:31 Dose: 81 mg Atorvastatin Calcium (Lipitor) 40 mg PO DAILY@2100 [facility] Clopidogrel Bisulfate (Plavix) 75 mg PO DAILY [facility] Last Admin: 03/07/17 08:32 Dose: 75 mg Donepezil HCl (Aricept) 5 mg PO HS [facility] Last Admin: 03/06/17 21:48 Dose: 5 mg Glipizide (Glucotrol) 10 mg PO BIDAC [facility] Last Admin: 03/07/17 06:52 Dose: 10 mg Hydrochlorothiazide (Microzide) 12.5 mg PO DAILY [facility] Last Admin: 03/07/17 08:31 Dose: 12.5 mg Insulin Detemir (Levemir) 12 units SC HS [facility] Last Admin: 03/06/17 21:51 Dose: 12 unit Insulin Human Regular (Humulin R) 0 units SC ACHS [facility] PRN Reason: Protocol Last Admin: 03/07/17 06:42 Dose: Not Given Insulin Lispro Protam/Lispro Human (Humalog Mix 75/25) 6 units SC ACD [facility] Last Admin: 03/06/17 16:58 Dose: 6 units Insulin Lispro Protam/Lispro Human (Humalog Mix 75/25) 16 units SC ACB [facility] Last Admin: 03/07/17 08:30 Dose: 16 units Lisinopril (Zestril) 20 mg PO Q12 [facility] Last Admin: 03/07/17 08:32 Dose: 20 mg Memantine (Namenda) 5 mg PO DAILY [facility] Last Admin: 03/07/17 08:31 Dose: 5 mg - Labs Labs: 03/04/17 08:03 03/04/17 08:03 - Respiratory Exam Respiratory Exam: Clear to Ausculation Bilateral - Cardiovascular Exam Cardiovascular Exam: REGULAR RHYTHM, +S1, +S2 - Extremities Exam Extremities Exam: Normal Inspection Assessment and Plan - Assessment and Plan (Free Text) Assessment: HYPERTENSION HYPERLIPIDEMIA DEMENTIA CEREBROVASCULAR DISEASE DM Plan: CONTINUE ASPIRIN, CLOPIDOGREL, LISINOPRIL, AMLODIPINE, ATORVASTATIN, DM MEDICATIONS, ARICEPT
--- NOTE | 2017-03-07 18:23 | CP.PCM.PN ---
Subjective - Date & Time of Evaluation Date of Evaluation: 03/07/17 Time of Evaluation: 22:22 - Subjective Subjective: Above noted Objective - Vital Signs/Intake and Output Vital Signs (last 24 hours): Temp Pulse Resp BP Pulse Ox 97.7 F 66 20 145/94 H 98 03/07/17 17:58 03/07/17 17:58 03/07/17 17:58 03/07/17 17:58 03/07/17 17:58 - Medications Medications: Current Medications Amlodipine Besylate (Norvasc) 10 mg PO DAILY [facility] Last Admin: 03/07/17 08:32 Dose: 10 mg Aspirin (Ecotrin) 81 mg PO DAILY [facility] Last Admin: 03/07/17 08:31 Dose: 81 mg Atorvastatin Calcium (Lipitor) 40 mg PO DAILY@2100 [facility] Clopidogrel Bisulfate (Plavix) 75 mg PO DAILY [facility] Last Admin: 03/07/17 08:32 Dose: 75 mg Donepezil HCl (Aricept) 5 mg PO HS [facility] Last Admin: 03/06/17 21:48 Dose: 5 mg Glipizide (Glucotrol) 10 mg PO BIDAC [facility] Last Admin: 03/07/17 17:13 Dose: 10 mg Hydrochlorothiazide (Microzide) 12.5 mg PO DAILY [facility] Last Admin: 03/07/17 08:31 Dose: 12.5 mg Insulin Detemir (Levemir) 12 units SC HS [facility] Last Admin: 03/06/17 21:51 Dose: 12 unit Insulin Human Regular (Humulin R) 0 units SC ACHS [facility] PRN Reason: Protocol Last Admin: 03/07/17 17:13 Dose: Not Given Insulin Lispro Protam/Lispro Human (Humalog Mix 75/25) 6 units SC ACD [facility] Last Admin: 03/07/17 17:12 Dose: 6 units Insulin Lispro Protam/Lispro Human (Humalog Mix 75/25) 16 units SC ACB [facility] Last Admin: 03/07/17 08:30 Dose: 16 units Lisinopril (Zestril) 20 mg PO Q12 [facility] Last Admin: 03/07/17 08:32 Dose: 20 mg Memantine (Namenda) 5 mg PO DAILY [facility] Last Admin: 03/07/17 08:31 Dose: 5 mg - Labs Labs: 03/04/17 08:03 03/04/17 08:03 - Respiratory Exam Respiratory Exam: NORMAL BREATHING PATTERN - Cardiovascular Exam Cardiovascular Exam: REGULAR RHYTHM - GI/Abdominal Exam GI & Abdominal Exam: Normal Bowel Sounds Assessment and Plan - Assessment and Plan (Free Text) Assessment: NIDDM noncompliance with meds Endo Uncontrolled hypertension 2 to noncompliance- Improved Cardiology Meds adjusted Dementia MID? 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
[2017-03-07] MEDS: Insulin Detemir 100 Units/ml Inj SC SCH (21:02)
[2017-03-07 21:04] VITALS: PULSE 65
--- NOTE | 2017-03-08 02:45 | PN ---
ENDOCRINOLOGY FOLLOWUP NOTE LOCATION: Room [address] [facility]CU. SUBJECTIVE: This is an 87-year-old female with recent uncontrolled type 2 insulin-requiring diabetes, now being followed closely for metabolic management. Her glycemic levels are really much improved with the initiation of a premixed insulin regimen given twice daily and basal insulin given overnight as noted. However, this morning with a normal fasting glucose of 121, the nursing staff held the morning insulin with supervening hyperglycemic accelerations by lunch time up to 68 mg/dL. The last glucose tonight was 189 as noted. The metabolic goals of trying to achieve values ranging from 90 to 130 is quite a reasonable level with no extremes of hypo to hyperglycemic accelerations as expected. The latest chemistry showed the BUN of 24, sodium 141, potassium 3.6, chloride 102, CO2 29, glucose 169 and creatinine 1.0. So at this time, we will continue the same basal and bolus insulin regimen as given with Humalog 75/25, given as 16 units a.c. breakfast and 6 units a.c. dinner with Levemir given as 12 units at bedtime daily as ordered. We will obtain serial chemistries and supplement accordingly as needed. The biggest concern at this point is the patient is being discharged home despite her progressive dementia and inability to self administer her own insulin regimen and also to self monitor her glucose levels at home. The family is trying to provide some kind of outside health to administer the insulin therapy to the patient. Actually, the patient has been going to my office once a day from Sunday to Sunday for at least the basal insulin being given at midday by my office staff. However, would expect hyperglycemic accelerations as we will not be able to give the full insulin regimen as this being given on the inpatient setting as noted. Shanthi Correa MD
[2017-03-08] MEDS: Insulin Regular 100 units/ml SC SCH ×3 (06:33→16:29)
[2017-03-08 07:46] VITALS: BP 136/65; TEMP 97.2; O2SAT 97
[2017-03-08] MEDS: Insulin Lispro Mix 75/25 100 units/ml (HumaLog) 10ml SC SCH ×2 (08:05→16:28)
--- NOTE | 2017-03-08 08:30 | CP.PCM.PN ---
Subjective - Date & Time of Evaluation Date of Evaluation: 03/08/17 Time of Evaluation: 08:27 - Subjective Subjective: Ms. Simon was seen and examined at the bedside. She is alert, oriented. She denies any headache, dizziness, lightheadedness, nausea, or vomiting. She is able to consumed the majority of her breakfast tray. She is ambulating with steady gait around her room. The result of the MRI of the brain which showed intracerebral atherosclerosis and menigioma was explained to the patient together with the possible treatments. She verbalizes understanding. There was no untoward events overnight. Objective - Vital Signs/Intake and Output Vital Signs (last 24 hours): Temp Pulse Resp BP Pulse Ox 97.2 F L 65 20 136/65 97 03/08/17 07:45 03/08/17 07:45 03/08/17 07:45 03/08/17 07:45 03/08/17 07:45 - Medications Medications: Current Medications Amlodipine Besylate (Norvasc) 10 mg PO DAILY [facility] Last Admin: 03/07/17 08:32 Dose: 10 mg Aspirin (Ecotrin) 81 mg PO DAILY [facility] Last Admin: 03/07/17 08:31 Dose: 81 mg Atorvastatin Calcium (Lipitor) 40 mg PO DAILY@2100 [facility]EL Clopidogrel Bisulfate (Plavix) 75 mg PO DAILY [facility] Last Admin: 03/07/17 08:32 Dose: 75 mg Donepezil HCl (Aricept) 5 mg PO HS [facility] Last Admin: 03/07/17 21:02 Dose: 5 mg Glipizide (Glucotrol) 10 mg PO BIDAC [facility] Last Admin: 03/07/17 17:13 Dose: 10 mg Hydrochlorothiazide (Microzide) 12.5 mg PO DAILY [facility] Last Admin: 03/07/17 08:31 Dose: 12.5 mg Insulin Detemir (Levemir) 12 units SC HS [facility] Last Admin: 03/07/17 21:02 Dose: 12 unit Insulin Human Regular (Humulin R) 0 units SC ACHS [facility] PRN Reason: Protocol Last Admin: 03/08/17 06:33 Dose: Not Given Insulin Lispro Protam/Lispro Human (Humalog Mix 75/25) 6 units SC ACD [facility] Last Admin: 03/07/17 17:12 Dose: 6 units Insulin Lispro Protam/Lispro Human (Humalog Mix 75/25) 16 units SC ACB [facility] Last Admin: 03/07/17 08:30 Dose: 16 units Lisinopril (Zestril) 20 mg PO Q12 [facility] Last Admin: 03/07/17 21:03 Dose: 20 mg Memantine (Namenda) 5 mg PO DAILY [facility] Last Admin: 03/07/17 08:31 Dose: 5 mg - Labs Labs: 03/04/17 08:03 03/04/17 08:03 - Constitutional Appears: No Acute Distress - Head Exam Head Exam: ATRAUMATIC - Neurological Exam Neurological Exam: Alert, Awake, CN II-XII Intact, Normal Gait, Oriented x3 Neuro motor strength exam: Left Upper Extremity: 5, Right Upper Extremity: 5, Left Lower Extremity: 5, Right Lower Extremity: 5 Additional comments: Neurological unchanged from previous examination. Assessment and Plan (1) Dementia Assessment & Plan: Case discussed with Dr. Ruelas, continue all current medical, physical, occupational, and cognitive therapies. With ethe Intracerebral atherosclerosis that was seen in the MRI of the brain. dual antiplatelet (aspirin 81 mg PO daily , plavix 75 mg PO daily< lipitor 40 mg po daily) will be recommended for 6 months. If the treatment fails and patient will become symptomatic to recommend intracerebral stenting. With regards to the meningioma, will continue to monitor. If patient will be discharge to follow up with Dr. Ruelas in a month at his office [address] [place] [address], tel. number [phone]. Status: Chronic
--- NOTE | 2017-03-08 20:44 | CP.PCM.PN ---
Subjective - Date & Time of Evaluation Date of Evaluation: 03/08/17 Time of Evaluation: 22:22 - Subjective Subjective: Doing well Objective - Vital Signs/Intake and Output Vital Signs (last 24 hours): Temp Pulse Resp BP Pulse Ox 97.2 F L 65 20 136/65 97 03/08/17 07:45 03/08/17 08:56 03/08/17 07:45 03/08/17 08:56 03/08/17 07:45 - Labs Labs: 03/04/17 08:03 03/04/17 08:03 - Respiratory Exam Respiratory Exam: NORMAL BREATHING PATTERN - Cardiovascular Exam Cardiovascular Exam: REGULAR RHYTHM - GI/Abdominal Exam GI & Abdominal Exam: Normal Bowel Sounds Assessment and Plan - Assessment and Plan (Free Text) Assessment: NIDDM noncompliance with meds Endo Uncontrolled hypertension 2 to noncompliance- Improved Cardiology Meds adjusted Dementia MID? 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
--- NOTE | 2017-03-31 16:58 | HP ---
History of Present Illness : 87yr old admitted to TCU for management of DM / HTN and deconditioning Past Patient History: - Past Medical History & Family History Past Medical History: Yes - Past Social History Smoking Status: Never Smoked - CARDIAC Hx Cardiac Disorders: Yes Hx Hypertension: Yes - PULMONARY Hx Respiratory Disorders: No - NEUROLOGICAL Hx Dementia: Yes - HEENT Hx HEENT Problems: No - RENAL Hx Chronic Kidney Disease: No - ENDOCRINE/METABOLIC Hx Diabetes Mellitus Type 2: Yes - HEMATOLOGICAL/ONCOLOGICAL Hx Blood Disorders: No Hx AIDS: No Hx Human Immunodeficiency Virus (HIV): No - INTEGUMENTARY Hx Dermatological Problems: No - MUSCULOSKELETAL/RHEUMATOLOGICAL Hx Arthritis: Yes Hx Falls: No - GASTROINTESTINAL Hx Gastrointestinal Disorders: No - GENITOURINARY/GYNECOLOGICAL Hx Genitourinary Disorders: No - PSYCHIATRIC Hx Psychophysiological Disorder: No Hx Substance Use: No - SURGICAL HISTORY Hx Cholecystectomy: Yes - ANESTHESIA Hx Anesthesia: Yes Hx Anesthesia Reactions: No Hx Malignant Hyperthermia: No Has any member of the family had a problem w/ anesthesia?: No Medications: Current Medications Amlodipine Besylate (Norvasc) 10 mg PO DAILY [facility] Aspirin (Ecotrin) 81 mg PO DAILY [facility] Atorvastatin Calcium (Lipitor) 40 mg PO DAILY@2100 [facility] Clopidogrel Bisulfate (Plavix) 75 mg PO DAILY [facility] Enoxaparin Sodium (Lovenox) 30 mg SC DAILY [facility] PRN Reason: Protocol Glipizide (Glucotrol) 10 mg PO BIDAC [facility] Hydrochlorothiazide (Microzide) 12.5 mg PO DAILY [facility] Insulin Detemir (Levemir) 12 units SC HS [facility] Insulin Human Regular (Humulin R) 0 units SC ACHS [facility] PRN Reason: Protocol Insulin Lispro Protam/Lispro Human (Humalog Mix 75/25) 6 units SC ACD [facility] Insulin Lispro Protam/Lispro Human (Humalog Mix 75/25) 14 units SC ACB [facility] Lisinopril (Zestril) 20 mg PO Q12 [facility] Memantine (Namenda) 5 mg PO DAILY [facility] Allergies/Adverse Reactions: Allergy/AdvReac Type Severity Reaction Status Date / Time No Known Allergies Allergy ~ ~ Verified 06/03/2016 11:11 Physical Examination: - Respiratory Exam Respiratory Exam: NORMAL BREATHING PATTERN - Cardiovascular Exam Cardiovascular Exam: REGULAR RHYTHM - GI/Abdominal Exam GI & Abdominal Exam: Normal Bowel Sounds Vital Signs (last 24 hours): Temp Pulse Resp BP Pulse Ox 98.1 F 67 20 145/72 98 03/02/17 15:37 03/02/17 15:37 03/02/17 15:37 03/02/17 15:37 03/02/17 15:37 Assessment & Plan: Admit to Transitional Care Unit Neurology follow Cardiology follow NIDDM noncompliance with meds Endo- unsafe d/c home Uncontrolled hypertension 2 to noncompliance Cardiology Meds adjusted Dementia MID? 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 MTDD
== END 2017-03-08 17:10 | disposition home health service (06) | DRG 72 ==
LOC: H.TCU 13:45
PROVIDERS: ADMIT Family Medicine Geriatric Medicine; ATTEND Family Medicine Geriatric Medicine
PROC: F07Z9FZ Gait Training/Functional Ambulation Treatment using Assistive, Adaptive, Supportive or Protective Equipment (ICD-10-PCS; principal; 2017-03-02)
PROC: F08Z4FZ Home Management Treatment using Assistive, Adaptive, Supportive or Protective Equipment (ICD-10-PCS; 2017-03-02)
PROC: F07M6FZ Therapeutic Exercise Treatment of Musculoskeletal System - Whole Body using Assistive, Adaptive, Supportive or Protective Equipment (ICD-10-PCS; 2017-03-02)
DX: I67.2 Cerebral atherosclerosis (principal); E11.65 Type 2 diabetes mellitus with hyperglycemia; F01.50 Vascular dementia, unspecified severity, without behavioral disturbance, psychotic disturbance, mood disturbance, and anxiety; I10 Essential (primary) hypertension; E78.5 Hyperlipidemia, unspecified; Z79.4 Long term (current) use of insulin; Z91.14 Patient's other noncompliance with medication regimen; Z91.19 Patient's noncompliance with other medical treatment and regimen; Z87.820 Personal history of traumatic brain injury

== ENCOUNTER 2017-06-05 19:14 | Inpatient (IN) | payer MEDICARE, MEDICAID ==
[2017-06-05 19:15] VITALS: BMI 27.1
--- NOTE | 2017-06-05 19:44 | ED PDOC ---
HPI: General Adult <FabianDana - Last Filed: 06/05/17 22:27> <Natalya Harding - Last Filed: 06/06/17 14:02> Time Seen by Provider: 06/05/17 19:31 Chief Complaint (Nursing): Flu-like Symptoms Additional Complaint(s): 87yo F with PMHx dementia, DM, HTN, HLD c/o cough. nonproductive cough x2 days, a/w rhinorrhea and post tussive chest pain. Denies chest pain at rest or exertion, non reproducible. Denies fever, chills, n/v, head/chest congestion, chest pain currently, SOB, abd pain, dysuria, hematuria.. Not taking anything for cough/cold. Compliant with meds. Lives alone. Tolerating PO. d/w PCP, pt + influenza in office and c/o SOB. PCP Dr. Curtis Cordoba (Dana Peralta) Supervising Attending Note <Dana Peralta - Last Filed: 06/05/17 22:27> - Supervising Attending Note The Documented history was done by the: Physician Boat Repairer, Attending Physician The documented physical exam was done by the: Physician Boat Repairer, Attending Physician - Attestation: I have personally seen and examined this patient.: Yes I have fully participated in the care of the patient.: Yes I have reviewed all pertinent clinical information, including history, physical exam and plan: Yes <Natalya Harding - Last Filed: 06/06/17 14:02> - Notes: Notes:: 87yo with multiple comorbities and influenza. High risk complications and early findings of dehydration. Hospitalize for continued management. (Natalya Harding) Past Medical History Reviewed: Historical Data, Nursing Documentation, Vital Signs - Medical History PMH: Arthritis, Dementia, Diabetes (type II), HTN Denies: HIV, Chronic Kidney Disease - Surgical History Surgical History: Cholecystectomy - Family History Family History: States: Unknown Family Hx - Immunization History Hx Tetanus Toxoid Vaccination: No Hx Influenza Vaccination: No Hx Pneumococcal Vaccination: No <Dana Peralta - Last Filed: 06/05/17 22:27> <Natalya Harding - Last Filed: 06/06/17 14:02> Vital Signs: Last Vital Signs Temp 97.7 F 06/06/17 09:00 Pulse 81 06/06/17 11:56 Resp 19 06/06/17 09:00 BP 156/65 H 06/06/17 11:56 Pulse Ox 96 06/06/17 09:00 - Home Medications Home Medications: Ambulatory Orders Medication Instructions Recorded Memantine [Namenda] 5 mg PO DAILY 11/06/16 hydroCHLOROthiazide [Microzide] 12.5 mg PO DAILY 11/06/16 Aspirin [Ecotrin] 81 mg PO DAILY tabec 03/02/17 Atorvastatin [Lipitor] 40 mg PO DAILY@2100 tab 03/02/17 Insulin Human Regular [HumuLIN R] 0 units SC ACHS ml 03/02/17 SITagliptin [Januvia] 50 mg PO DAILY tab 03/02/17 Atorvastatin [Lipitor] 40 mg PO DAILY@2100 tab 03/08/17 Clopidogrel [Plavix] 75 mg PO DAILY tab 03/08/17 Donepezil [Aricept] 5 mg PO HS tab 03/08/17 GlipiZIDE [Glucotrol] 10 mg PO BIDAC tab 03/08/17 Insulin Detemir [Levemir] 12 units SC HS 03/08/17 Insulin Lispro Mix 75/25 [HumaLog 6 units SC ACD vial 03/08/17 MIX 75/25] Insulin Lispro Mix 75/25 [HumaLog 16 units SC ACB vial 03/08/17 MIX 75/25] Lisinopril [Zestril] 20 mg PO Q12 tab 03/08/17 amLODIPine [Norvasc] 10 mg PO DAILY tab 03/08/17 - Allergies Allergies/Adverse Reactions: Allergies Allergy/AdvReac Type Severity Reaction Status Date / Time No Known Allergies Allergy Verified 03/02/17 13:45 Review of Systems ROS Statement: Except As Marked, All Systems Reviewed And Found Negative ENT: Positive for: Nose Congestion Respiratory: Positive for: Cough <Tu,Ting - Last Filed: 06/05/17 22:27> Physical Exam - Reviewed Nursing Documentation Reviewed: Yes Vital Signs Reviewed: Yes - Physical Exam Appears: Positive for: Non-toxic, No Acute Distress Head Exam: Positive for: ATRAUMATIC, NORMAL INSPECTION Skin: Positive for: Warm, Dry Eye Exam: Positive for: Normal appearance. Negative for: Conjunctival injection ENT: Negative for: Pharyngeal Erythema, Tonsillar Exudate Neck: Positive for: Normal, Painless ROM, Supple Cardiovascular/Chest: Positive for: Regular Rate, Rhythm. Negative for: Chest Non Tender Respiratory: Positive for: Normal Breath Sounds. Negative for: Decreased Breath Sounds, Rales, Rhonchi, Wheezing Gastrointestinal/Abdominal: Positive for: Soft Back: Positive for: Normal Inspection Extremity: Positive for: Normal ROM. Negative for: Tenderness Lymphatic: Negative for: Adenopathy Neurologic/Psych: Positive for: Alert, Oriented <Dana Peralta - Last Filed: 06/05/17 22:27> - Laboratory Results Result Diagrams: 06/05/17 20:18 06/05/17 20:18 - ECG O2 Sat by Pulse Oximetry: 97 <Dana - Last Filed: 06/05/17 22:27> - Laboratory Results Result Diagrams: 06/06/17 06:15 06/06/17 06:49 <Natalya Harding - Last Filed: 06/06/17 14:02> Medical Decision Making <Dana - Last Filed: 06/05/17 22:27> <Natalya Harding - Last Filed: 06/06/17 14:02> Medical Decision Makin DDx URI, influenza, PNA EKG CXR CBC, CMP, PT/PTT, Mg, Phos T&S urine dip, UA, urine cx blood cx rapid influenza A/B BNP troponin VBG reassessment 2043 cxr cardiomegaly, no consolidations (my interp) EKG NSR (my interp) VBG lactate 1.0 2 CBC no leukocytosis CMP BUN 22, baseline elevated LFTs BNP, PT/PTT, Mg, Phos WNL neg troponin UA neg tamiflu admit for influenza given comorbidites (,Ting) Disposition - Disposition Disposition Time: 22:27 <Dana Peralta - Last Filed: 06/05/17 22:27> <Natalya Harding - Last Filed: 06/06/17 14:02> - Clinical Impression Clinical Impression: Influenza - Disposition Condition: STABLE
[2017-06-05 20:21] LABS: VENOUS BLOOD GAS BASE EXCESS 7.2 mmol/L (0.0-2.0); VENOUS BLOOD GAS PCO2 51 mmHg (40-60); VENOUS BLOOD GAS PO2 22 mm/Hg (30-55); VENOUS BLOOD PH 7.42 (7.32-7.43)
[2017-06-05 20:43] LABS: BASO % 0.9 % (0.0-2.0); EOS # 0.1 K/uL (0.0-0.7); EOS % 1.6 % (0.0-4.0); HEMOGLOBIN 12.3 g/dL (12.0-16.0); LYMPH # 1.3 K/uL (1.0-4.3); LYMPH % 32.7 % (20.0-40.0); MEAN CELL VOLUME 89.2 fl (81.0-99.0); MEAN CORPUSCULAR HEMOGLOBIN 29.4 pg (27.0-31.0); MEAN CORPUSCULAR HGB CONC 32.9 g/dL (33.0-37.0); MEAN PLATELET VOLUME 9.6 fl (7.2-11.7); MONO # 0.5 K/uL (0.0-0.8); MONO % 13.1 % (0.0-10.0); NEUT # 2.1 K/uL (1.8-7.0); NEUT % 51.7 % (50.0-75.0); NRBC % 0.1 % (0.0-0.0); RBC 4.2 Mil/uL (3.80-5.20); RED CELL DISTRIBUTION WIDTH 14.5 % (11.5-14.5)
[2017-06-05 20:51] LABS: INR 1.2 (0.9-1.2); PARTIAL THROMBOPLASTIN TIME 29.2 Seconds (25.6-37.1); PROTHROMBIN TIME 12.8 Seconds (9.8-13.1)
[2017-06-05 21:12] LABS: ALB/GLOB RATIO 1.2 (1.0-2.1); ALBUMIN 4.2 g/dL (3.5-5.0); BLOOD UREA NITROGEN 22 mg/dl (7-17); CALCIUM 9.4 mg/dL (8.4-10.2); GFR AFRICAN-AMERICAN > 60; GFR NON-AFRICAN AMERICAN 52
[2017-06-05 21:15] LABS: ALT/SGPT 56 U/L (9-52); AST/SGOT 57 U/L (14-36); B-TYPE NATRIURETIC PEPTIDE 58.4 pg/ml (0-900)
[2017-06-05 21:24] LABS: SQUAMOUS EPITHIAL 2 /hpf (0-5); URINE BILIRUBIN NEGATIVE (NEGATIVE); URINE BLOOD NEGATIVE (NEGATIVE); URINE CLARITY SLIGHTY-CLOUDY (Clear); URINE COLOR YELLOW (YELLOW); URINE GLUCOSE (UA) 50 mg/dL (Normal); URINE LEUKOCYTE ESTERASE NEG Leu/uL (Negative); URINE PROTEIN 30 mg/dL (NEGATIVE); URINE UROBILINOGEN 0.2-1.0 mg/dL (0.2-1.0)
[2017-06-06] MEDS: guaiFENesin 100 mg/5 ml Syrup UD PO PRN (06:05)
[2017-06-06 06:54] LABS: BASO % 0.8 % (0.0-2.0); EOS # 0.1 K/uL (0.0-0.7); EOS % 2.5 % (0.0-4.0); LYMPH # 1.6 K/uL (1.0-4.3); LYMPH % 36.2 % (20.0-40.0); MEAN CELL VOLUME 89.7 fl (81.0-99.0); MEAN CORPUSCULAR HGB CONC 33.4 g/dL (33.0-37.0); MEAN PLATELET VOLUME 9.4 fl (7.2-11.7); MONO # 0.5 K/uL (0.0-0.8); MONO % 11.4 % (0.0-10.0); NEUT # 2.2 K/uL (1.8-7.0); NEUT % 49.1 % (50.0-75.0); NRBC % 0.1 % (0.0-0.0); RED CELL DISTRIBUTION WIDTH 14.6 % (11.5-14.5); WHITE BLOOD COUNT 4.5 K/uL (4.8-10.8)
[2017-06-06 07:11] LABS: ALB/GLOB RATIO 1.1 (1.0-2.1); ALBUMIN 3.9 g/dL (3.5-5.0); ALT/SGPT 48 U/L (9-52); AST/SGOT 48 U/L (14-36); BLOOD UREA NITROGEN 17 mg/dl (7-17); GFR AFRICAN-AMERICAN > 60; GFR NON-AFRICAN AMERICAN > 60; HDL CHOLESTEROL 22 MG/DL (30-70)
[2017-06-06 07:21] LABS: LDL CHOLESTEROL 44 mg/dL (0-129)
--- NOTE | 2017-06-06 10:06 | RAD ---
HISTORY: cough influenza COMPARISON: 11/06/2016 TECHNIQUE: Chest PA and lateral FINDINGS: LUNGS: No active pulmonary disease. PLEURA: No significant pleural effusion identified. No pneumothorax apparent. CARDIOVASCULAR: Top-normal heart size. Calcified and tortuous thoracic aorta -stable OSSEOUS STRUCTURES: Bilateral shoulder arthrosis - advanced. 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 Cervical and a diffuse thoraco lumbar spondylosis. No interval fracture seen. The mild degenerative type wedging of the most inferior appearing thoracic vertebral body probably T12 and the slight malalignment/ prior retrolisthesis is stable in appearance VISUALIZED UPPER ABDOMEN: Normal. OTHER FINDINGS: None. IMPRESSION: No interval acute cardiopulmonary pathology noted
--- NOTE | 2017-06-06 11:15 | CP.PCM.CON ---
Past Patient History - Past Medical History & Family History Past Medical History?: Yes - Past Social History Smoking Status: Never Smoked - CARDIAC Hx Cardiac Disorders: Yes Hx Hypertension: Yes - PULMONARY Hx Respiratory Disorders: No - NEUROLOGICAL Hx Neurological Disorder: Yes Hx Dementia: Yes - HEENT Hx HEENT Problems: No - RENAL Hx Chronic Kidney Disease: No - ENDOCRINE/METABOLIC Hx Endocrine Disorders: Yes Hx Diabetes Mellitus Type 2: Yes - HEMATOLOGICAL/ONCOLOGICAL Hx Blood Disorders: No Hx Human Immunodeficiency Virus (HIV): No - INTEGUMENTARY Hx Dermatological Problems: No - MUSCULOSKELETAL/RHEUMATOLOGICAL Hx Musculoskeletal Disorders: Yes Hx Arthritis: Yes Hx Falls: Yes - GASTROINTESTINAL Hx Gastrointestinal Disorders: No - GENITOURINARY/GYNECOLOGICAL Hx Genitourinary Disorders: No - PSYCHIATRIC Hx Psychophysiologic Disorder: No Hx Substance Use: No - SURGICAL HISTORY Hx Surgeries: Yes Hx Cholecystectomy: Yes - ANESTHESIA Hx Anesthesia: Yes Hx Anesthesia Reactions: No Hx Malignant Hyperthermia: No Meds Allergies/Adverse Reactions: Allergies Allergy/AdvReac Type Severity Reaction Status Date / Time No Known Allergies Allergy Verified 03/02/17 13:45 - Medications Medications: Current Medications Acetaminophen (Tylenol 325mg Tab) 650 mg PO Q6 PRN PRN Reason: Fever >100.4 F Benzonatate (Tessalon Perles) 100 mg PO TID [facility]EL Guaifenesin (Robitussin) 100 mg PO Q4 PRN PRN Reason: Cough Last Admin: 06/06/17 06:05 Dose: 100 mg Sodium Chloride (Sodium Chloride 0.45%) 500 mls @ 60 mls/hr IV .Q8H20M [facility] Stop: 06/07/17 05:42 Last Admin: 06/06/17 06:00 Dose: 60 mls/hr Ondansetron HCl (Zofran Inj) 4 mg IVP Q8 PRN PRN Reason: Nausea/Vomiting Oseltamivir Phosphate (Tamiflu Cap) 75 mg PO BID [facility] PRN Reason: Protocol Results - Vital Signs Recent Vital Signs: Last Vital Signs Temp 97.7 F 06/06/17 07:32 Pulse 81 06/06/17 07:32 Resp 19 06/06/17 07:32 BP 156/65 H 06/06/17 07:32 Pulse Ox 96 06/06/17 07:32 - Labs Result Diagrams: 06/06/17 06:15 06/06/17 06:49 Labs: Laboratory Results - last 24 hr 06/05/17 06/05/17 06/05/17 19:54 20:07 20:10 WBC RBC Hgb Hct MCV MCH MCHC RDW Plt Count MPV Neut % (Auto) Lymph % (Auto) Smith % (Auto) Eos % (Auto) Baso % (Auto) Neut # (Auto) Lymph # (Auto) Smith # (Auto) Eos # (Auto) Baso # (Auto) PT 12.8 INR 1.2 APTT 29.2 pO2 VBG pH VBG pCO2 VBG HCO3 VBG Total CO2 VBG O2 Sat (Calc) VBG Base Excess VBG Potassium Sodium Chloride Glucose Lactate FiO2 Potassium Carbon Dioxide Anion Gap BUN Creatinine Est GFR ( Amer) Est GFR (Non-Af Amer) POC Glucose (mg/dL) 209 H Random Glucose Calcium Phosphorus Magnesium Total Bilirubin AST ALT Alkaline Phosphatase Troponin I NT-Pro-B Natriuret Pep Total Protein Albumin Globulin Albumin/Globulin Ratio Triglycerides Cholesterol LDL Cholesterol Direct HDL Cholesterol TSH 3rd Generation Venous Blood Potassium Urine Color Urine Clarity Urine pH Ur Specific [place] Urine Protein Urine Glucose (UA) Urine Ketones Urine Blood Urine Nitrate Urine Bilirubin Urine Urobilinogen Ur Leukocyte Esterase Urine RBC (Auto) Urine Microscopic WBC Ur Squamous Epith Cells Blood Type O POSITIVE Antibody Screen Negative BBK History Checked Patient has bt 06/05/17 06/05/17 06/05/17 20:18 20:18 20:18 WBC 4.0 L RBC 4.20 Hgb 12.3 Hct 37.5 MCV 89.2 MCH 29.4 MCHC 32.9 L RDW 14.5 Plt Count 141 MPV 9.6 Neut % (Auto) 51.7 Lymph % (Auto) 32.7 Smith % (Auto) 13.1 H Eos % (Auto) 1.6 Baso % (Auto) 0.9 Neut # (Auto) 2.1 Lymph # (Auto) 1.3 Smith # (Auto) 0.5 Eos # (Auto) 0.1 Baso # (Auto) 0.0 PT INR APTT pO2 22 L VBG pH 7.42 VBG pCO2 51 VBG HCO3 29.0 VBG Total CO2 34.7 H VBG O2 Sat (Calc) 43.6 VBG Base Excess 7.2 H VBG Potassium 3.8 Sodium 142 137.0 Chloride 96 L 102.0 Glucose 207 H Lactate 1.0 FiO2 21.0 Potassium 3.8 Carbon Dioxide 30 Anion Gap 20 BUN 22 H Creatinine 1.0 Est GFR ( Amer) > 60 Est GFR (Non-Af Amer) 52 POC Glucose (mg/dL) Random Glucose 203 H Calcium 9.4 Phosphorus 3.3 Magnesium 2.0 Total Bilirubin 0.3 AST 57 H ALT 56 H Alkaline Phosphatase 86 Troponin I < 0.0120 NT-Pro-B Natriuret Pep 58.4 Total Protein 7.6 Albumin 4.2 Globulin 3.4 Albumin/Globulin Ratio 1.2 Triglycerides Cholesterol LDL Cholesterol Direct HDL Cholesterol TSH 3rd Generation Venous Blood Potassium 3.8 Urine Color Urine Clarity Urine pH Ur Specific [place] Urine Protein Urine Glucose (UA) Urine Ketones Urine Blood Urine Nitrate Urine Bilirubin Urine Urobilinogen Ur Leukocyte Esterase Urine RBC (Auto) Urine Microscopic WBC Ur Squamous Epith Cells Blood Type Antibody Screen BBK History Checked 06/05/17 06/06/17 06/06/17 20:54 05:53 06:15 WBC 4.5 L RBC 4.00 Hgb 12.0 Hct 35.9 MCV 89.7 MCH 30.0 MCHC 33.4 RDW 14.6 H Plt Count 136 MPV 9.4 Neut % (Auto) 49.1 L Lymph % (Auto) 36.2 Smith % (Auto) 11.4 H Eos % (Auto) 2.5 Baso % (Auto) 0.8 Neut # (Auto) 2.2 Lymph # (Auto) 1.6 Smith # (Auto) 0.5 Eos # (Auto) 0.1 Baso # (Auto) 0.0 PT INR APTT pO2 VBG pH VBG pCO2 VBG HCO3 VBG Total CO2 VBG O2 Sat (Calc) VBG Base Excess VBG Potassium Sodium Chloride Glucose Lactate FiO2 Potassium Carbon Dioxide Anion Gap BUN Creatinine Est GFR ( Amer) Est GFR (Non-Af Amer) POC Glucose (mg/dL) 209 H Random Glucose Calcium Phosphorus Magnesium Total Bilirubin AST ALT Alkaline Phosphatase Troponin I NT-Pro-B Natriuret Pep Total Protein Albumin Globulin Albumin/Globulin Ratio Triglycerides Cholesterol LDL Cholesterol Direct HDL Cholesterol TSH 3rd Generation Venous Blood Potassium Urine Color Yellow Urine Clarity Slighty-cloudy Urine pH 6.0 Ur Specific [place] 1.026 Urine Protein 30 Urine Glucose (UA) 50 Urine Ketones Negative Urine Blood Negative Urine Nitrate Negative Urine Bilirubin Negative Urine Urobilinogen 0.2-1.0 Ur Leukocyte Esterase Neg Urine RBC (Auto) 3 Urine Microscopic WBC 1 Ur Squamous Epith Cells 2 Blood Type Antibody Screen BBK History Checked 06/06/17 06:49 WBC RBC Hgb Hct MCV MCH MCHC RDW Plt Count MPV Neut % (Auto) Lymph % (Auto) Smith % (Auto) Eos % (Auto) Baso % (Auto) Neut # (Auto) Lymph # (Auto) Smith # (Auto) Eos # (Auto) Baso # (Auto) PT INR APTT pO2 VBG pH VBG pCO2 VBG HCO3 VBG Total CO2 VBG O2 Sat (Calc) VBG Base Excess VBG Potassium Sodium 141 Chloride 99 Glucose Lactate FiO2 Potassium 3.8 Carbon Dioxide 28 Anion Gap 18 BUN 17 Creatinine 0.8 Est GFR ( Amer) > 60 Est GFR (Non-Af Amer) > 60 POC Glucose (mg/dL) Random Glucose 232 H Calcium 9.0 Phosphorus Magnesium Total Bilirubin 0.4 AST 48 H ALT 48 Alkaline Phosphatase 84 Troponin I NT-Pro-B Natriuret Pep Total Protein 7.3 Albumin 3.9 Globulin 3.4 Albumin/Globulin Ratio 1.1 Triglycerides 176 H D Cholesterol 111 LDL Cholesterol Direct 44 HDL Cholesterol 22 L TSH 3rd Generation 1.56 Venous Blood Potassium Urine Color Urine Clarity Urine pH Ur Specific [place] Urine Protein Urine Glucose (UA) Urine Ketones Urine Blood Urine Nitrate Urine Bilirubin Urine Urobilinogen Ur Leukocyte Esterase Urine RBC (Auto) Urine Microscopic WBC Ur Squamous Epith Cells Blood Type Antibody Screen BBK History Checked Assessment & Plan (1) Cough Status: Acute Priority: High (2) Anterior chest wall pain Status: Acute Priority: High (3) Influenza Status: Acute Priority: High - Assessment and Plan (Free Text) Plan: Continue Tamuiflu. Add cough suppressant (benzonatate). Start at 100MG TID PRN, if ineffective, increase to 200MG TID PRN . - Date & Time Date: 06/06/17 Time: 11:15
--- NOTE | 2017-06-06 12:11 | CARD ---
APPROVED REPORT EKG Measurement Heart [id number] <Conclusion> Normal sinus rhythm Nonspecific T wave abnormality Abnormal ECG
[2017-06-06] MEDS ORDERED: Insulin Lispro Mix 75/25 100 units/ml (HumaLog) 10ml SC SCH (16:30)
[2017-06-06] MEDS: Insulin Lispro Mix 75/25 100 units/ml (HumaLog) 10ml SC SCH (16:35)
--- NOTE | 2017-06-06 18:31 | CP.PCM.HP ---
History of Present Illness - History of Present Illness History of Present Illness: 87 yo admitted for cough SOB and + influenza Present on Admission - Present on Admission Any Indicators Present on Admission: No Past Patient History - Past Medical History & Family History Past Medical History?: Yes - Past Social History Smoking Status: Never Smoked - CARDIAC Hx Cardiac Disorders: Yes Hx Hypertension: Yes - PULMONARY Hx Respiratory Disorders: No - NEUROLOGICAL Hx Neurological Disorder: Yes Hx Dementia: Yes - HEENT Hx HEENT Problems: No - RENAL Hx Chronic Kidney Disease: No - ENDOCRINE/METABOLIC Hx Endocrine Disorders: Yes Hx Diabetes Mellitus Type 2: Yes - HEMATOLOGICAL/ONCOLOGICAL Hx Blood Disorders: No Hx Human Immunodeficiency Virus (HIV): No - INTEGUMENTARY Hx Dermatological Problems: No - MUSCULOSKELETAL/RHEUMATOLOGICAL Hx Musculoskeletal Disorders: Yes Hx Arthritis: Yes Hx Falls: Yes - GASTROINTESTINAL Hx Gastrointestinal Disorders: No - GENITOURINARY/GYNECOLOGICAL Hx Genitourinary Disorders: No - PSYCHIATRIC Hx Psychophysiologic Disorder: No Hx Substance Use: No - SURGICAL HISTORY Hx Surgeries: Yes Hx Cholecystectomy: Yes - ANESTHESIA Hx Anesthesia: Yes Hx Anesthesia Reactions: No Hx Malignant Hyperthermia: No Meds Allergies/Adverse Reactions: Allergies Allergy/AdvReac Type Severity Reaction Status Date / Time No Known Allergies Allergy Verified 03/02/17 13:45 Physical Exam - Respiratory Exam Respiratory Exam: NORMAL BREATHING PATTERN - Cardiovascular Exam Cardiovascular Exam: REGULAR RHYTHM - GI/Abdominal Exam GI & Abdominal Exam: Normal Bowel Sounds Results - Vital Signs Recent Vital Signs: Last Vital Signs Temp 97.8 F 06/06/17 15:58 Pulse 59 L 06/06/17 15:58 Resp 18 06/06/17 15:58 BP 138/69 06/06/17 15:58 Pulse Ox 97 06/06/17 15:58 - Labs Result Diagrams: 06/06/17 06:15 06/06/17 06:49 Labs: Laboratory Results - last 24 hr 06/05/17 06/05/17 06/05/17 19:54 20:07 20:10 WBC RBC Hgb Hct MCV MCH MCHC RDW Plt Count MPV Neut % (Auto) Lymph % (Auto) [place] % (Auto) Eos % (Auto) Baso % (Auto) Neut # (Auto) Lymph # (Auto) [place] # (Auto) Eos # (Auto) Baso # (Auto) PT 12.8 INR 1.2 APTT 29.2 pO2 VBG pH VBG pCO2 VBG HCO3 VBG Total CO2 VBG O2 Sat (Calc) VBG Base Excess VBG Potassium Sodium Chloride Glucose Lactate FiO2 Potassium Carbon Dioxide Anion Gap BUN Creatinine Est GFR ( Amer) Est GFR (Non-Af Amer) POC Glucose (mg/dL) 209 H Random Glucose Hemoglobin A1c Calcium Phosphorus Magnesium Total Bilirubin AST ALT Alkaline Phosphatase Troponin I NT-Pro-B Natriuret Pep Total Protein Albumin Globulin Albumin/Globulin Ratio Triglycerides Cholesterol LDL Cholesterol Direct HDL Cholesterol TSH 3rd Generation Venous Blood Potassium Urine Color Urine Clarity Urine pH Ur Specific [place] Urine Protein Urine Glucose (UA) Urine Ketones Urine Blood Urine Nitrate Urine Bilirubin Urine Urobilinogen Ur Leukocyte Esterase Urine RBC (Auto) Urine Microscopic WBC Ur Squamous Epith Cells Blood Type O POSITIVE Antibody Screen Negative BBK History Checked Patient has bt 06/05/17 06/05/17 06/05/17 20:18 20:18 20:18 WBC 4.0 L RBC 4.20 Hgb 12.3 Hct 37.5 MCV 89.2 MCH 29.4 MCHC 32.9 L RDW 14.5 Plt Count 141 MPV 9.6 Neut % (Auto) 51.7 Lymph % (Auto) 32.7 [place] % (Auto) 13.1 H Eos % (Auto) 1.6 Baso % (Auto) 0.9 Neut # (Auto) 2.1 Lymph # (Auto) 1.3 [place] # (Auto) 0.5 Eos # (Auto) 0.1 Baso # (Auto) 0.0 PT INR APTT pO2 22 L VBG pH 7.42 VBG pCO2 51 VBG HCO3 29.0 VBG Total CO2 34.7 H VBG O2 Sat (Calc) 43.6 VBG Base Excess 7.2 H VBG Potassium 3.8 Sodium 142 137.0 Chloride 96 L 102.0 Glucose 207 H Lactate 1.0 FiO2 21.0 Potassium 3.8 Carbon Dioxide 30 Anion Gap 20 BUN 22 H Creatinine 1.0 Est GFR ( Amer) > 60 Est GFR (Non-Af Amer) 52 POC Glucose (mg/dL) Random Glucose 203 H Hemoglobin A1c Calcium 9.4 Phosphorus 3.3 Magnesium 2.0 Total Bilirubin 0.3 AST 57 H ALT 56 H Alkaline Phosphatase 86 Troponin I < 0.0120 NT-Pro-B Natriuret Pep 58.4 Total Protein 7.6 Albumin 4.2 Globulin 3.4 Albumin/Globulin Ratio 1.2 Triglycerides Cholesterol LDL Cholesterol Direct HDL Cholesterol TSH 3rd Generation Venous Blood Potassium 3.8 Urine Color Urine Clarity Urine pH Ur Specific [place] Urine Protein Urine Glucose (UA) Urine Ketones Urine Blood Urine Nitrate Urine Bilirubin Urine Urobilinogen Ur Leukocyte Esterase Urine RBC (Auto) Urine Microscopic WBC Ur Squamous Epith Cells Blood Type Antibody Screen BBK History Checked 06/05/17 06/06/17 06/06/17 20:54 05:53 06:15 WBC 4.5 L RBC 4.00 Hgb 12.0 Hct 35.9 MCV 89.7 MCH 30.0 MCHC 33.4 RDW 14.6 H Plt Count 136 MPV 9.4 Neut % (Auto) 49.1 L Lymph % (Auto) 36.2 [place] % (Auto) 11.4 H Eos % (Auto) 2.5 Baso % (Auto) 0.8 Neut # (Auto) 2.2 Lymph # (Auto) 1.6 [place] # (Auto) 0.5 Eos # (Auto) 0.1 Baso # (Auto) 0.0 PT INR APTT pO2 VBG pH VBG pCO2 VBG HCO3 VBG Total CO2 VBG O2 Sat (Calc) VBG Base Excess VBG Potassium Sodium Chloride Glucose Lactate FiO2 Potassium Carbon Dioxide Anion Gap BUN Creatinine Est GFR ( Amer) Est GFR (Non-Af Amer) POC Glucose (mg/dL) 209 H Random Glucose Hemoglobin A1c Calcium Phosphorus Magnesium Total Bilirubin AST ALT Alkaline Phosphatase Troponin I NT-Pro-B Natriuret Pep Total Protein Albumin Globulin Albumin/Globulin Ratio Triglycerides Cholesterol LDL Cholesterol Direct HDL Cholesterol TSH 3rd Generation Venous Blood Potassium Urine Color Yellow Urine Clarity Slighty-cloudy Urine pH 6.0 Ur Specific [place] 1.026 Urine Protein 30 Urine Glucose (UA) 50 Urine Ketones Negative Urine Blood Negative Urine Nitrate Negative Urine Bilirubin Negative Urine Urobilinogen 0.2-1.0 Ur Leukocyte Esterase Neg Urine RBC (Auto) 3 Urine Microscopic WBC 1 Ur Squamous Epith Cells 2 Blood Type Antibody Screen BBK History Checked 06/06/17 06/06/17 06/06/17 06:49 06:49 10:56 WBC RBC Hgb Hct MCV MCH MCHC RDW Plt Count MPV Neut % (Auto) Lymph % (Auto) [place] % (Auto) Eos % (Auto) Baso % (Auto) Neut # (Auto) Lymph # (Auto) [place] # (Auto) Eos # (Auto) Baso # (Auto) PT INR APTT pO2 VBG pH VBG pCO2 VBG HCO3 VBG Total CO2 VBG O2 Sat (Calc) VBG Base Excess VBG Potassium Sodium 141 Chloride 99 Glucose Lactate FiO2 Potassium 3.8 Carbon Dioxide 28 Anion Gap 18 BUN 17 Creatinine 0.8 Est GFR ( Amer) > 60 Est GFR (Non-Af Amer) > 60 POC Glucose (mg/dL) 332 H Random Glucose 232 H Hemoglobin A1c 10.7 H Calcium 9.0 Phosphorus Magnesium Total Bilirubin 0.4 AST 48 H ALT 48 Alkaline Phosphatase 84 Troponin I NT-Pro-B Natriuret Pep Total Protein 7.3 Albumin 3.9 Globulin 3.4 Albumin/Globulin Ratio 1.1 Triglycerides 176 H D Cholesterol 111 LDL Cholesterol Direct 44 HDL Cholesterol 22 L TSH 3rd Generation 1.56 Venous Blood Potassium Urine Color Urine Clarity Urine pH Ur Specific [place] Urine Protein Urine Glucose (UA) Urine Ketones Urine Blood Urine Nitrate Urine Bilirubin Urine Urobilinogen Ur Leukocyte Esterase Urine RBC (Auto) Urine Microscopic WBC Ur Squamous Epith Cells Blood Type Antibody Screen BBK History Checked 06/06/17 16:29 WBC RBC Hgb Hct MCV MCH MCHC RDW Plt Count MPV Neut % (Auto) Lymph % (Auto) [place] % (Auto) Eos % (Auto) Baso % (Auto) Neut # (Auto) Lymph # (Auto) [place] # (Auto) Eos # (Auto) Baso # (Auto) PT INR APTT pO2 VBG pH VBG pCO2 VBG HCO3 VBG Total CO2 VBG O2 Sat (Calc) VBG Base Excess VBG Potassium Sodium Chloride Glucose Lactate FiO2 Potassium Carbon Dioxide Anion Gap BUN Creatinine Est GFR ( Amer) Est GFR (Non-Af Amer) POC Glucose (mg/dL) 301 H Random Glucose Hemoglobin A1c Calcium Phosphorus Magnesium Total Bilirubin AST ALT Alkaline Phosphatase Troponin I NT-Pro-B Natriuret Pep Total Protein Albumin Globulin Albumin/Globulin Ratio Triglycerides Cholesterol LDL Cholesterol Direct HDL Cholesterol TSH 3rd Generation Venous Blood Potassium Urine Color Urine Clarity Urine pH Ur Specific [place] Urine Protein Urine Glucose (UA) Urine Ketones Urine Blood Urine Nitrate Urine Bilirubin Urine Urobilinogen Ur Leukocyte Esterase Urine RBC (Auto) Urine Microscopic WBC Ur Squamous Epith Cells Blood Type Antibody Screen BBK History Checked Assessment & Plan - Assessment and Plan (Free Text) Assessment: Bronchitis Dehydration Influenza IVF Tamiflu Pulmonary NIDDM Endo - Date & Time Date: 06/06/17 Time: 22:22
[2017-06-06] MEDS ORDERED: Insulin Detemir 100 Units/ml Inj SC SCH (22:00)
[2017-06-06] MEDS: Insulin Detemir 100 Units/ml Inj SC SCH (22:07)
[2017-06-07] MEDS ORDERED: Insulin Lispro Mix 75/25 100 units/ml (HumaLog) 10ml SC SCH (07:30)
[2017-06-07] MEDS: Insulin Lispro Mix 75/25 100 units/ml (HumaLog) 10ml SC SCH ×2 (08:51→17:34)
--- NOTE | 2017-06-07 08:58 | CON ---
ENDOCRINOLOGY CONSULT DATE: LOCATION: In room 669 HISTORY OF PRESENT ILLNESS: This is an 87-year-old female with known history of type 2 insulin-requiring diabetes presenting here with an acute influenza and progressive shortness of breath and is being admitted for closer workup and management and is also being referred for diabetic evaluation and management. PAST MEDICAL HISTORY: History of type 2 insulin-requiring diabetes on a premixed insulin regimen taken only once a week and basal insulin taken once daily at lunchtime because of the current social situation where she lives alone with nobody else having to give her insulin and so she comes to my office everyday at noontime for administration of her insulin by my office staff as noted. Her current insulin regimen is a combination of Humalog 75/25 given as 16 units before breakfast and 6 units before dinner with Levemir given as 12 units subcutaneously at bedtime daily as ordered. She is also on glipizide given as 10 mg b.i.d. and Januvia at 50 mg once daily, history of hypertensive cardiovascular disease and dyslipidemia, history of generalized osteoarthritis with polyarthralgia especially in the lower back and bilateral knees. History of senile dementia of the Alzheimer's type, but the patient is very adamant and insistent on living alone and does not want to join her daughter offered the patient to live with her as noted. FAMILY HISTORY: Positive for hypertension and heart disease. SOCIAL HISTORY: The patient lives alone as mentioned and also has refused the senior daycare facilities as offered. No known substance use. REVIEW OF SYSTEMS: Admits to generalized body weakness with easy fatigability and tiredness and suboptimal energy level. Also admits to episodic dizziness and lightheadedness, worse on the day of admission. No chest pains, but admits to pleuritic chest pain with progressive shortness of breath on exertion and then at rest. She also admits to productive cough with nasal congestion and supervening bronchorrhea. Her oral intake has been variable with nausea, dyspepsia, and vague upper abdominal pains. Also admits to episodic polyuria and nocturia. PHYSICAL EXAMINATION: GENERAL: This is an average-built female in no apparent distress. VITAL SIGNS: Blood pressure 140/80, pulse of 90 beats per minute and regular, temperature 98, respirations 20, height is 5 feet 4 inches, and weight is 125 pounds. HEENT: Head Is normocephalic. Eyes; anicteric with pink conjunctivae. Funduscopy not possible at this time. Ears, nose and throat otherwise normal. NECK: Supple. Thyroid gland is normal in size. No carotid bruits or any cervical adenopathy. CARDIOPULMONARY: Some adynamic precordium. S1 and S2 is rapid and regular. LUNGS: Clear to auscultation. ABDOMEN: Flat and soft with positive bowel sounds. EXTREMITIES: No peripheral edema. Pulses are +2 bilaterally. LABORATORY DATA: Her chemistries showed a BUN of 17, sodium 141, potassium 3.8, chloride 99, CO2 of 28, glucose 232, and creatinine 0.8. Her hemoglobin A1c is extremely elevated at 10.7%. Her TSH is 1.56. ASSESSMENT AND PLAN: This is an 87-year-old female with uncontrolled and decompensated type 2 insulin-requiring diabetes, now admitted with acute influenza and bronchitis and is being referred for further diabetic evaluation and management because of supervening hyperglycemic accelerations as noted thereof. She also has senile dementia of the Alzheimer's type and has refused home care and also even personal care by her daughter who was very supportive of her care, but cannot be available to given her insulin regimen at home as mentioned. Plan of management as discussed with the patient and staff. We will modify her current insulin regimen and increase the premixed insulin regimen with Humalog 75/25 given as 24 units a.c. breakfast and 12 units a.c. dinner to start today. We will also increase her Levemir given as basal insulin to 14 units subcutaneously at bedtime daily as ordered. We will modify the coverage scale to obviate hypoglycemia and detailed orders have been given. We will obtain serial chemistry and supplement accordingly as needed. We will follow. Shanthi Correa MD
--- NOTE | 2017-06-07 16:46 | PN ---
DATE: ENDO FOLLOWUP NOTE LOCATION: Room 669. SUBJECTIVE: This is an 87-year-old female with recent uncontrolled type 2 insulin-requiring diabetes presenting here with acute influenza and supervening generalized body weakness and is now being followed closely for metabolic management. Her glycemic levels are fluctuating, but much improved overnight as noted and the glucose values have ranged from 141 to 147 and 158 mg/dL. Her latest chemistry showed BUN of 17, sodium of 141, potassium of 3.8, chloride of 99, CO2 of 28, glucose of 232, and creatinine of 0.8. Her hemoglobin A1c is 10.7% as noted. So at this time, we will continue the same basal and premixed insulin regimen to allow for dose equilibration and keep her on the Levemir given as 14 units subcu at bedtime daily as given. We will continue the Humalog 75/25 given as 24 units before breakfast as ordered and also 12 units before dinner as ordered. We will titrate incrementally as indicated to optimize metabolic control. We will also continue the Januvia given as 50 mg daily and glipizide given as 10 mg b.i.d. before meals as ordered. We will titrate incrementally as indicated to optimize metabolic control. We will follow and advise accordingly. Shanthi Correa MD
[2017-06-07] MEDS: Insulin Detemir 100 Units/ml Inj SC SCH (21:30)
--- NOTE | 2017-06-07 21:37 | CP.PCM.PN ---
Subjective - Date & Time of Evaluation Date of Evaluation: 06/07/17 Time of Evaluation: 22:22 - Subjective Subjective: Cough improved Aic 10.7 Objective - Vital Signs/Intake and Output Vital Signs (last 24 hours): Temp Pulse Resp BP Pulse Ox 97.9 F 73 20 128/72 96 06/07/17 15:45 06/07/17 21:29 06/07/17 15:45 06/07/17 21:29 06/07/17 15:45 - Medications Medications: Current Medications Acetaminophen (Tylenol 325mg Tab) 650 mg PO Q6 PRN PRN Reason: Fever >100.4 F Amlodipine Besylate (Norvasc) 10 mg PO DAILY [facility] Last Admin: 06/07/17 08:54 Dose: 10 mg Aspirin (Ecotrin) 81 mg PO DAILY [facility] Last Admin: 06/07/17 08:50 Dose: 81 mg Atorvastatin Calcium (Lipitor) 40 mg PO DAILY@2100 [facility] Last Admin: 06/07/17 21:29 Dose: 40 mg Benzonatate (Tessalon Perles) 100 mg PO TID [facility] Last Admin: 06/07/17 18:16 Dose: 100 mg Clopidogrel Bisulfate (Plavix) 75 mg PO DAILY [facility] Last Admin: 06/07/17 08:56 Dose: 75 mg Donepezil HCl (Aricept) 5 mg PO HS [facility] Last Admin: 06/07/17 21:30 Dose: 5 mg Glipizide (Glucotrol) 10 mg PO BIDAC [facility] Last Admin: 06/07/17 17:34 Dose: 10 mg Guaifenesin (Robitussin) 100 mg PO Q4 PRN PRN Reason: Cough Last Admin: 06/06/17 06:05 Dose: 100 mg Hydrochlorothiazide (Microzide) 12.5 mg PO DAILY [facility] Last Admin: 06/07/17 08:52 Dose: 12.5 mg Insulin Detemir (Levemir) 14 units SC HS [facility] Last Admin: 06/07/17 21:30 Dose: 14 units Insulin Lispro Protam/Lispro Human (Humalog Mix 75/25) 12 units SC ACD [facility] Last Admin: 06/07/17 17:34 Dose: 12 units Insulin Lispro Protam/Lispro Human (Humalog Mix 75/25) 24 units SC ACB [facility] Last Admin: 03/15/18 08:51 Dose: 24 units Lisinopril (Zestril) 20 mg PO Q12 [facility] Last Admin: 06/07/17 21:29 Dose: 20 mg Memantine (Namenda) 5 mg PO DAILY [facility] Last Admin: 06/07/17 08:52 Dose: 5 mg Ondansetron HCl (Zofran Inj) 4 mg IVP Q8 PRN PRN Reason: Nausea/Vomiting Oseltamivir Phosphate (Tamiflu Cap) 75 mg PO BID [facility] PRN Reason: Protocol Last Admin: 06/07/17 18:16 Dose: 75 mg Sitagliptin Phosphate (Januvia) 50 mg PO DAILY [facility] Last Admin: 06/07/17 08:52 Dose: 50 mg - Labs Labs: 06/06/17 06:15 06/06/17 06:49 PT 12.8 Seconds (9.8-13.1) 06/05/17 19:54 INR 1.2 (0.9-1.2) 06/05/17 19:54 APTT 29.2 Seconds (25.6-37.1) 06/05/17 19:54 - Respiratory Exam Respiratory Exam: NORMAL BREATHING PATTERN - Cardiovascular Exam Cardiovascular Exam: Tachycardia - GI/Abdominal Exam GI & Abdominal Exam: Normal Bowel Sounds Assessment and Plan - Assessment and Plan (Free Text) Assessment: Bronchitis Dehydration Influenza IVF Tamiflu Pulmonary NIDDM uncontrolled Endo
[2017-06-08] MEDS: Insulin Lispro Mix 75/25 100 units/ml (HumaLog) 10ml SC SCH ×2 (09:17→17:04)
--- NOTE | 2017-06-08 13:52 | PN ---
DATE: ENDOCRINOLOGY FOLLOWUP NOTE LOCATION: Room number 669. SUBJECTIVE: This is an 87-year-old female with recent uncontrolled type 2 insulin-requiring diabetes now being followed closely for metabolic management. Her oral intake remains quite variable at this time and the latest glucose values have ranged from 147 to 227 and 282 mg/dL. LABORATORY DATA: Her latest chemistries showed a BUN of 17, sodium of 141, potassium of 3.8, chloride of 99, CO2 of 28, glucose of 232 and creatinine of 0.8. Her hemoglobin A1c is expectedly very elevated because of the subtherapeutic insulin regimen given at home because of family and social problems and considerations. IMPRESSION AND PLAN: So at this time, we will modify her basal insulin and increase the Levemir to 18 units subcutaneous at bedtime daily to start tonight. We will continue her premixed insulin regimen with Humalog 75/25 given as 24 units before breakfast and 12 units before dinner as ordered. We will titrate incremental as indicated to optimize metabolic control obtained. The biggest concern at this time is that the patient is only receiving her insulin once a day in my office actually to be and is given by my medical technologist chemistry every day at noontime from Sunday to Sunday. She received maybe 1 to 2 insulin injections on weekends, Sunday and Sunday when the daughter can make it or even not make it to give the insulin injection. The patient has refused a [facility] available in [place] at this time and she was also refused to join her daughter in her home otherwise daughter at least help out with the insulin administration. We will obtain serial chemistries and supplement accordingly needed. We will follow. Shanthi Correa MD
--- NOTE | 2017-06-08 20:01 | CP.PCM.PN ---
Subjective - Date & Time of Evaluation Date of Evaluation: 06/08/17 Time of Evaluation: 22:22 - Subjective Subjective: Above noted Objective - Vital Signs/Intake and Output Vital Signs (last 24 hours): Temp Pulse Resp BP Pulse Ox 97.6 F 64 20 125/63 98 06/08/17 15:48 06/08/17 15:48 06/08/17 15:48 06/08/17 15:48 06/08/17 15:48 - Medications Medications: Current Medications Acetaminophen (Tylenol 325mg Tab) 650 mg PO Q6 PRN PRN Reason: Fever >100.4 F Amlodipine Besylate (Norvasc) 10 mg PO DAILY [facility] Last Admin: 06/08/17 09:18 Dose: 10 mg Aspirin (Ecotrin) 81 mg PO DAILY [facility] Last Admin: 06/08/17 09:18 Dose: 81 mg Atorvastatin Calcium (Lipitor) 40 mg PO DAILY@2100 [facility] Last Admin: 06/07/17 21:29 Dose: 40 mg Benzonatate (Tessalon Perles) 100 mg PO TID [facility] Last Admin: 06/08/17 17:04 Dose: 100 mg Clopidogrel Bisulfate (Plavix) 75 mg PO DAILY [facility] Last Admin: 06/08/17 09:18 Dose: 75 mg Donepezil HCl (Aricept) 5 mg PO HS [facility] Last Admin: 06/07/17 21:30 Dose: 5 mg Glipizide (Glucotrol) 10 mg PO BIDAC [facility] Last Admin: 06/08/17 17:03 Dose: 10 mg Guaifenesin (Robitussin) 100 mg PO Q4 PRN PRN Reason: Cough Last Admin: 06/06/17 06:05 Dose: 100 mg Hydrochlorothiazide (Microzide) 12.5 mg PO DAILY [facility] Last Admin: 06/08/17 09:19 Dose: 12.5 mg Insulin Detemir (Levemir) 18 units SC HS [facility] Insulin Lispro Protam/Lispro Human (Humalog Mix 75/25) 12 units SC ACD [facility] Last Admin: 06/08/17 17:04 Dose: 12 units Insulin Lispro Protam/Lispro Human (Humalog Mix 75/25) 24 units SC ACB [facility] Last Admin: 06/08/17 09:17 Dose: 24 units Lisinopril (Zestril) 20 mg PO Q12 [facility] Last Admin: 06/08/17 09:19 Dose: 20 mg Memantine (Namenda) 5 mg PO DAILY [facility] Last Admin: 06/08/17 09:18 Dose: 5 mg Ondansetron HCl (Zofran Inj) 4 mg IVP Q8 PRN PRN Reason: Nausea/Vomiting Oseltamivir Phosphate (Tamiflu Cap) 75 mg PO BID [facility] PRN Reason: Protocol Last Admin: 06/08/17 17:04 Dose: 75 mg Sitagliptin Phosphate (Januvia) 50 mg PO DAILY [facility] Last Admin: 06/08/17 09:19 Dose: 50 mg - Labs Labs: 06/06/17 06:15 06/06/17 06:49 PT 12.8 Seconds (9.8-13.1) 06/05/17 19:54 INR 1.2 (0.9-1.2) 06/05/17 19:54 APTT 29.2 Seconds (25.6-37.1) 06/05/17 19:54 - Respiratory Exam Respiratory Exam: NORMAL BREATHING PATTERN - Cardiovascular Exam Cardiovascular Exam: REGULAR RHYTHM - GI/Abdominal Exam GI & Abdominal Exam: Normal Bowel Sounds Assessment and Plan - Assessment and Plan (Free Text) Assessment: NIDDM uncontrolled Endo Bronchitis Dehydration Influenza IVF Tamiflu Pulmonary
[2017-06-08] MEDS: Insulin Detemir 100 Units/ml Inj SC SCH (21:54)
[2017-06-09] MEDS: Insulin Lispro Mix 75/25 100 units/ml (HumaLog) 10ml SC SCH ×2 (08:56→16:03)
--- NOTE | 2017-06-09 16:01 | PN ---
DATE: ENDO FOLLOWUP NOTE LOCATION: Room 669. SUBJECTIVE: This is a 87-year-old female with recent uncontrolled type 2 insulin-requiring diabetes now being followed closely for metabolic management. Her glycemic levels are fluctuating, but much improved at this time and the latest glucose levels today have ranged from 189 mg/dL to 193 mg/dL. Her bedtime glucose was 187. The latest chemistry showed BUN of 17, sodium of 141, potassium of 3.8, chloride of 99, CO2 of 28, glucose of 232, and creatinine of 0.8. So at this time, we will continue the same basal and premixed insulin regimen as ordered to allow for dose equilibration and keep her on the Humalog 75/25 given as 24 units a.c. breakfast and 12 units a.c. dinner as ordered. We will continue also the basal insulin given at the modified dose of 20 units subcu at bedtime daily as ordered. We will continue the low-dose correction scale using Humalog insulin as given. We will titrate incrementally as indicated to optimize metabolic control. We will follow and advise accordingly. Shanthi Correa MD
[2017-06-09] MEDS: Insulin Detemir 100 Units/ml Inj SC SCH (21:43)
[2017-06-09] MEDS: guaiFENesin 100 mg/5 ml Syrup UD PO PRN (21:45)
[2017-06-10] MEDS: Insulin Lispro Mix 75/25 100 units/ml (HumaLog) 10ml SC SCH ×2 (08:22→16:44)
--- NOTE | 2017-06-10 09:25 | CP.PCM.PN ---
Subjective - Date & Time of Evaluation Date of Evaluation: 06/10/17 Time of Evaluation: 22:22 - Subjective Subjective: Blood sugars improved Insulin being given Objective - Vital Signs/Intake and Output Vital Signs (last 24 hours): Temp Pulse Resp BP Pulse Ox 98.3 F 65 20 127/64 96 06/10/17 08:02 06/10/17 08:02 06/10/17 08:02 06/10/17 08:02 06/10/17 08:02 - Medications Medications: Current Medications Acetaminophen (Tylenol 325mg Tab) 650 mg PO Q6 PRN PRN Reason: Fever >100.4 F Amlodipine Besylate (Norvasc) 10 mg PO DAILY [facility] Last Admin: 06/10/17 08:24 Dose: 10 mg Aspirin (Ecotrin) 81 mg PO DAILY [facility] Last Admin: 06/10/17 08:22 Dose: 81 mg Atorvastatin Calcium (Lipitor) 40 mg PO DAILY@2100 [facility] Last Admin: 06/09/17 21:43 Dose: 40 mg Benzonatate (Tessalon Perles) 100 mg PO TID [facility] Last Admin: 06/10/17 08:25 Dose: 100 mg Clopidogrel Bisulfate (Plavix) 75 mg PO DAILY [facility] Last Admin: 06/10/17 08:25 Dose: 75 mg Donepezil HCl (Aricept) 5 mg PO HS [facility] Last Admin: 06/09/17 21:42 Dose: 5 mg Glipizide (Glucotrol) 10 mg PO BIDAC [facility] Last Admin: 06/10/17 08:22 Dose: 10 mg Guaifenesin (Robitussin) 100 mg PO Q4 PRN PRN Reason: Cough Last Admin: 06/09/17 21:45 Dose: 100 mg Hydrochlorothiazide (Microzide) 12.5 mg PO DAILY [facility] Last Admin: 06/10/17 08:24 Dose: 12.5 mg Insulin Detemir (Levemir) 18 units SC HS [facility] Last Admin: 06/09/17 21:43 Dose: 18 units Insulin Lispro Protam/Lispro Human (Humalog Mix 75/25) 12 units SC ACD [facility] Last Admin: 06/09/17 16:03 Dose: 12 units Insulin Lispro Protam/Lispro Human (Humalog Mix 75/25) 24 units SC ACB [facility] Last Admin: 03/18/18 08:22 Dose: 24 units Lisinopril (Zestril) 20 mg PO Q12 [facility] Last Admin: 06/10/17 08:25 Dose: 20 mg Memantine (Namenda) 5 mg PO DAILY [facility] Last Admin: 06/10/17 08:24 Dose: 5 mg Ondansetron HCl (Zofran Inj) 4 mg IVP Q8 PRN PRN Reason: Nausea/Vomiting Sitagliptin Phosphate (Januvia) 50 mg PO DAILY [facility] Last Admin: 06/10/17 08:24 Dose: 50 mg - Labs Labs: 06/06/17 06:15 06/06/17 06:49 PT 12.8 Seconds (9.8-13.1) 06/05/17 19:54 INR 1.2 (0.9-1.2) 06/05/17 19:54 APTT 29.2 Seconds (25.6-37.1) 06/05/17 19:54 - Respiratory Exam Respiratory Exam: NORMAL BREATHING PATTERN - Cardiovascular Exam Cardiovascular Exam: REGULAR RHYTHM - GI/Abdominal Exam GI & Abdominal Exam: Normal Bowel Sounds Assessment and Plan - Assessment and Plan (Free Text) Assessment: NIDDM uncontrolled Oma Ca Humolog Endo Disposition?? Needs outpt administration of Insulin Bronchitis Dehydration Influenza IVF Tamiflu
--- NOTE | 2017-06-10 14:10 | PN ---
DATE: ENDOCRINOLOGY FOLLOWUP NOTE LOCATION: Room number 664 SUBJECTIVE: This is an 87-year-old female with recent uncontrolled type 2 insulin-requiring diabetes now being followed closely for metabolic management. Her glycemic levels are fluctuating but much improved at this time and the latest glucose levels have ranged from 118 to 140 mg/dL. LABORATORY DATA: Her latest chemistry showed a BUN of 17, sodium of 141, potassium of 3.8, chloride of 99, CO2 of 28, glucose of 232 and creatinine of 0.8. Her hemoglobin A1c is 10.7% as expected because of the suboptimal and erratic insulin dosing regimen given at home. The patient actually is receiving insulin therapy once a day at noontime in my office from Sunday to Sunday given by my medical laboratory assistant and on s gets the insulin erratically if and when the daughter is able to given at least once or twice on Sunday or Sunday, again if the daughter is available and is not in [place]. IMPRESSION AND PLAN: So at this time, observe just optimal and excellent metabolic control of her diabetic condition white inpatient where the nursing staff is able to give her all the three insulin injections as given and ordered. So for now, we will continue the same basal and premixed insulin regimen to allow for dose equilibration and keep her on the Humalog 75/25 given as 24 units a.c. breakfast and 12 units a.c. dinner as ordered. We will also continue the Levemir given as 18 units subcutaneous at bedtime daily as given. We will continue the glipizide given as 10 mg b.i.d. as ordered. We will follow and advise accordingly. Shanthi Correa MD
[2017-06-10] MEDS: Insulin Detemir 100 Units/ml Inj SC SCH (21:49)
[2017-06-11 00:28] VITALS: TEMP 98
[2017-06-11 06:48] LABS: BASO % 0.6 % (0.0-2.0); EOS # 0.1 K/uL (0.0-0.7); EOS % 1.8 % (0.0-4.0); HEMOGLOBIN 12.1 g/dL (12.0-16.0); LYMPH # 2.1 K/uL (1.0-4.3); LYMPH % 36.5 % (20.0-40.0); MEAN CELL VOLUME 89.6 fl (81.0-99.0); MEAN CORPUSCULAR HGB CONC 33.4 g/dL (33.0-37.0); MEAN PLATELET VOLUME 9.1 fl (7.2-11.7); MONO # 0.6 K/uL (0.0-0.8); NEUT # 2.9 K/uL (1.8-7.0); NEUT % 51.1 % (50.0-75.0); RBC 4.03 Mil/uL (3.80-5.20); RED CELL DISTRIBUTION WIDTH 14.2 % (11.5-14.5); WHITE BLOOD COUNT 5.7 K/uL (4.8-10.8)
[2017-06-11 07:56] VITALS: BP 121/67; PULSE 55; RESP 20; O2SAT 97
[2017-06-11 08:06] LABS: ALB/GLOB RATIO 1.1 (1.0-2.1); ALBUMIN 3.7 g/dL (3.5-5.0); ALT/SGPT 38 U/L (9-52); AST/SGOT 28 U/L (14-36); BLOOD UREA NITROGEN 19 mg/dl (7-17); CALCIUM 9.1 mg/dL (8.4-10.2); GFR AFRICAN-AMERICAN > 60; GFR NON-AFRICAN AMERICAN 59
[2017-06-11] MEDS: Insulin Lispro Mix 75/25 100 units/ml (HumaLog) 10ml SC SCH (09:00)
--- NOTE | 2017-06-11 15:25 | CP.PCM.PCO ---
Assessment/Plan - Assessment/Plan Assessment (Free Text): Pt stable. Spoke to Dr. Cordoba, pt can be discharged home and daughter to f/u with pt for administration of night time insulin and weekend insulin administration. Spoke with Dr. Correa, pt to go to her office twice a day in the morning and afternoon for administration of insulin. Pt and daughter made aware of above plan, verbalized understanding. Pt to continue meds as per med rec. RN aware of plan.
--- NOTE | 2017-06-11 20:39 | CP.PCM.PN ---
Subjective - Date & Time of Evaluation Date of Evaluation: 06/11/17 Time of Evaluation: 22:22 - Subjective Subjective: Multiple calls to daughter and Endocronologist Objective - Vital Signs/Intake and Output Vital Signs (last 24 hours): Temp Pulse Resp BP Pulse Ox 98 F 55 L 20 121/67 97 06/11/17 07:55 06/11/17 08:57 06/11/17 07:55 06/11/17 08:57 06/11/17 07:55 - Labs Labs: 06/11/17 06:25 06/11/17 06:25 PT 12.8 Seconds (9.8-13.1) 06/05/17 19:54 INR 1.2 (0.9-1.2) 06/05/17 19:54 APTT 29.2 Seconds (25.6-37.1) 06/05/17 19:54 - Respiratory Exam Respiratory Exam: NORMAL BREATHING PATTERN - Cardiovascular Exam Cardiovascular Exam: REGULAR RHYTHM - GI/Abdominal Exam GI & Abdominal Exam: Normal Bowel Sounds Assessment and Plan - Assessment and Plan (Free Text) Assessment: NIDDM uncontrolled Januvia Levemir Humolog Endo Disposition Needs outpt administration of Insulin Pt to have Insulin BID at Endo office Daughter aware Bronchitis Dehydration Influenza IVF Tamiflu
--- NOTE | 2017-06-11 20:46 | PN ---
ENDOCRINOLOGY FOLLOWUP NOTE DATE: LOCATION: In room 669 SUBJECTIVE: This is an 87-year-old female with recent uncontrolled type 2 insulin-requiring diabetes, now being followed closely for metabolic management. Her glycemic levels are fluctuating, but improved and the latest glucose levels today have ranged from 99 to 209 mg/dL. Her latest chemistry showed a BUN of 19, sodium 144, potassium 3.9, chloride 101, CO2 of 29, glucose 115, and creatinine 0.9. Her social concerns especially with the insulin administration at home have been discussed with the nursing staff and the medical staff and her primary physician and she will be discharged today and we will once again resume her daily trips to my office for her insulin administration by my medical staff. The daughter will try to see if she can request her mother to come to my office at least twice a day if at all possible for at least to receive two injections before breakfast and before dinner and again if we can accommodate her as the office staff are only there until 2 to 3 o'clock in the afternoons. The daughter somehow was not been very cooperative with the care of her mother and has relegated the problems to the medical staff and the nursing staff in the hospital and to my office for outpatient diabetic care and insulin administration otherwise. The daughter is only apparently available to give the insulin on Saturdays or Sundays if she is around. I would highly recommend the halfway placement for optimal diabetic care and also for the safety of the patient because of the senile dementia as noted. We will recommend the same basal and premixed insulin regimen with Humalog 75/25 given as 24 units a.c. breakfast and 12 units a.c. dinner with Levemir given as 18 units subcutaneously at bedtime daily as ordered. We actually have a different insulin, which is the generic component, i.e., Basaglar given as a outpatient in place of Levemir medications. We will follow and advise accordingly. Shanthi Correa MD
== END 2017-06-11 16:25 | disposition home or self-care (01) | DRG 195 ==
LOC: H.ER 19:14 → H.ERHOLD 21:47 → H.MEDSURG1 23:56
PROVIDERS: ADMIT Family Medicine Geriatric Medicine; ATTEND Family Medicine Geriatric Medicine
DX: J10.1 Influenza due to other identified influenza virus with other respiratory manifestations (principal); J20.9 Acute bronchitis, unspecified; E11.65 Type 2 diabetes mellitus with hyperglycemia; E86.0 Dehydration; G30.1 Alzheimer's disease with late onset; F02.80 Dementia in other diseases classified elsewhere, unspecified severity, without behavioral disturbance, psychotic disturbance, mood disturbance, and anxiety; I11.9 Hypertensive heart disease without heart failure; E78.5 Hyperlipidemia, unspecified; M15.8 Other polyosteoarthritis; R07.89 Other chest pain; Z79.4 Long term (current) use of insulin; Z79.02 Long term (current) use of antithrombotics/antiplatelets; Z79.82 Long term (current) use of aspirin

== ENCOUNTER 2017-06-30 11:25 | Inpatient (IN) | payer OTHER, MEDICAID ==
[2017-06-30 11:50] VITALS: BMI 29.2
--- NOTE | 2017-06-30 12:10 | ED PDOC ---
HPI: General Adult Time Seen by Provider: 06/30/17 12:05 Chief Complaint (Nursing): Dizziness/Lightheaded Chief Complaint (Provider): dizziness/confusion History Per: Patient History/Exam Limitations: no limitations Onset/Duration Of Symptoms: Other (worsening over the last few days) Have you had recent travel within the past 21 days to any of the following countries: [place], [place], [place] or [place]?: No Current Symptoms Are (Timing): Still Present Quality: severe Similar Symptoms Previously: yes Recent Trauma: no Additional Complaint(s): Pt p/w + persistent/worsening dizziness/confusion; pt states she usually have someone help her with her insulin injections and there is a doctor who lives nearby who would be able to do so for her but she wasnt around yesterday, causing her to miss yesterday and todays insulin dose; pt went to see Dr Cordoba this morning and expressed her concern as well as her complaints of dizziness/confusion and she was given a choice to come to ED for eval or continue outpt f/u; pt arrived to ED for continue evaluation; pt states no fever /chills/sweats, no cp/sob/palpitations, no abd pain, no n/v, no numbness/ tingling, no slurr speech, no weakness, no vision changes, no urinary/bowel changes, no other complaints pt denied fall/trauma/sick contact, no travel clerk is here for further eval. PCP: Dr Cordoba pt is right handed pt lives alone NIHSS Stroke Scale 3 - Date/Time Evaluation Performed Date Performed: 06/30/17 Time Performed: 12:05 When Was NIHSS Performed: Baseline - How Severe is the Stroke Level of Consciousness: 0=Alert LOC to Questions: 0=Both comments correct LOC to commands: 0=Obeys both correctly Best Gaze: 0=Normal Visual: 0=No visual loss Facial: 0=Normal Motor Arm - Left: 0=No drift Motor Arm - Right: 0=No drift Motor Leg - Left: 0=No drift Motor Leg - Right: 0=No drift Limb Ataxia: 0=Absent Sensory: 0=Normal Best Language: 0=No aphasia Dysarthia: 0=Normal articulation Extinction & Inattention (Neglect): 0=Normal, no object Score: 0 Past Medical History Reviewed: Historical Data, Nursing Documentation, Vital Signs Vital Signs: Last Vital Signs Temp 98.2 F 06/30/17 12:17 Pulse 71 06/30/17 12:17 Resp 16 06/30/17 12:17 BP 107/61 06/30/17 12:17 Pulse Ox 97 06/30/17 14:52 - Medical History PMH: Arthritis, Dementia, Diabetes (type II), HTN Denies: HIV, Chronic Kidney Disease - Surgical History Surgical History: Cholecystectomy - Family History Family History: States: Unknown Family Hx - Living Arrangements Living Arrangements: Alone - Social History Current smoker - smoking cessation education provided: No Alcohol: None Drugs: Denies - Immunization History Hx Tetanus Toxoid Vaccination: No Hx Influenza Vaccination: No Hx Pneumococcal Vaccination: No - Home Medications Home Medications: Ambulatory Orders Medication Instructions Recorded Memantine [Namenda] 5 mg PO DAILY 11/06/16 hydroCHLOROthiazide [Microzide] 12.5 mg PO DAILY 11/06/16 Aspirin [Ecotrin] 81 mg PO DAILY tabec 03/02/17 SITagliptin [Januvia] 50 mg PO DAILY tab 03/02/17 Atorvastatin [Lipitor] 40 mg PO DAILY@2100 tab 03/08/17 Clopidogrel [Plavix] 75 mg PO DAILY tab 03/08/17 Donepezil [Aricept] 5 mg PO HS tab 03/08/17 GlipiZIDE [Glucotrol] 10 mg PO BIDAC tab 03/08/17 Lisinopril [Zestril] 20 mg PO Q12 tab 03/08/17 amLODIPine [Norvasc] 10 mg PO DAILY tab 03/08/17 Insulin Detemir [Levemir] 18 units SC HS #0 06/11/17 Insulin Lispro Mix 75/25 [HumaLog 12 units SC ACD #0 vial 06/11/17 MIX 75/25] Insulin Lispro Mix 75/25 [HumaLog 24 units SC ACB #0 vial 06/11/17 MIX 75/25] - Allergies Allergies/Adverse Reactions: Allergies Allergy/AdvReac Type Severity Reaction Status Date / Time No Known Allergies Allergy Verified 03/02/17 13:45 Review of Systems ROS Statement: Except As Marked, All Systems Reviewed And Found Negative Constitutional: Positive for: Weakness, Malaise. Negative for: Fever, Chills, Sweats, Weight loss Eyes: Negative for: Pain, Vision Change ENT: Negative for: Ear Pain Cardiovascular: Negative for: Chest Pain, Palpitations Respiratory: Negative for: Cough, Shortness of Breath, SOB with Exertion Gastrointestinal: Negative for: Nausea, Vomiting, Abdominal Pain Genitourinary Female: Negative for: Dysuria, Hematuria Musculoskeletal: Negative for: Neck Pain, Back Pain Skin: Negative for: Rash Neurological: Positive for: Confusion, Dizziness. Negative for: Weakness, Numbness, Incoordination, Altered Mental Status, Headache Physical Exam - Reviewed Nursing Documentation Reviewed: Yes Vital Signs Reviewed: Yes (WNL) - Physical Exam Appears: Positive for: Well (alert/awake, GCS = 15, oriented x 2 (not to date/ time), sitting in bed, NAD, comfortable appearing but appearing slightly anxious ), Non-toxic, No Acute Distress. Negative for: Uncomfortable Head Exam: Positive for: ATRAUMATIC, NORMAL INSPECTION, NORMOCEPHALIC Skin: Positive for: Normal Color (cap refill < 1sec, no ulceration, no petechiae , no rashes), Warm, Dry Eye Exam: Positive for: Normal appearance, EOMI, PERRL. Negative for: Nystagmus ENT: Positive for: Normal ENT Inspection, Other (uvula/tongue are midline, no exudate/lesions; fair dentitions) Neck: Positive for: Normal (no midline tenderness, no nuchal rigidity, no meningeal signs), Painless ROM, Supple, Trachea Midline Cardiovascular/Chest: Positive for: Regular Rate, Rhythm (+S1, +S2), Chest Non Tender. Negative for: Murmur Respiratory: Positive for: Normal Breath Sounds Gastrointestinal/Abdominal: Positive for: Normal Exam, Bowel Sounds, Soft, Other (well nourished female, no focal tenderness, no ) Back: Positive for: Normal Inspection, Other (no midline tenderness). Negative for: L CVA Tenderness, R CVA Tenderness Extremity: Positive for: Normal ROM, Other (+ ambulatory, neurovasc intact b/l, strength 5/5 grossly intact in all limbs). Negative for: Deformity Neurologic/Psych: Positive for: Alert, minister assistant II-XII, Oriented, Other (NIH stroke scale ~ 0, no asymmetries, no slurr speech) - Laboratory Results Result Diagrams: 06/30/17 12:39 06/30/17 12:39 - ECG ECG: Positive for: Interpreted By Me Interpretation Of ECG: Sinus rhythm at 70 bpm, with borderline 1st degree av block, normal axis, no ectopy, non-specific st-t changes V 3-6, ABNL EKG; unchanged compare with old ekg 05/2017 O2 Sat by Pulse Oximetry: 97 Pulse Ox Interpretation: Normal - Radiology X-Ray: Viewed By Me, Read By Radiologist - Progress ED Course And Treament: HISTORY: Dizziness and confusion. COMPARISON: Comparison made with chest radiograph dated 06/05/2017. TECHNIQUE: Chest PA and lateral FINDINGS: LUNGS: No active pulmonary disease. PLEURA: No significant pleural effusion identified. No pneumothorax apparent. CARDIOVASCULAR: Normal. OSSEOUS STRUCTURES: Mild multilevel degenerative spondylosis of the thoracic spine. Degenerative changes both shoulder girdles. . VISUALIZED UPPER ABDOMEN: Normal. OTHER FINDINGS: None. IMPRESSION: No acute infiltrates. This report is currently processing and HAS NOT BEEN OFFICIALLY SIGNED BY THE PHYSICIAN - ESTIMATED TIME OF APPROVAL IS 06/30/2017 14:15. PROCEDURE: CT HEAD WITHOUT CONTRAST. HISTORY: Dizziness and confusion. COMPARISON: Comparison made with prior MRI brain 02/28/2017 TECHNIQUE: Axial computed tomography images were obtained through the head/brain without intravenous contrast. Radiation dose: Total exam DLP = 789.29 mGy-cm. This CT exam was performed using one or more of the following dose reduction techniques: Automated exposure control, adjustment of the mA and/or kV according to patient size, and/or use of iterative reconstruction technique. FINDINGS: HEMORRHAGE: No acute parenchymal, subarachnoid or extra-axial hemorrhage. . BRAIN: Moderate to fairly significant diffuse/ confluent chronic periventricular white matter ischemic changes with multiple more discrete chronic lacunar-type infarcts scattered about the deep and subcortical white matter as well as both basal nuclei and to a lesser degree brainstem are less well seen on this study as compared to prior MRI brain. No obvious large acute infarct. No parenchymal nor extra-axial masses or collections seen on this noncontrast study. Prominent pineal calcification. Moderate generalized volume loss. Vascular calcifications both carotid siphons. VENTRICLES: No obstructive hydrocephalus. CALVARIUM: Unremarkable. PARANASAL SINUSES: Unremarkable as visualized. No significant inflammatory changes. MASTOID AIR CELLS: Unremarkable as visualized. No inflammatory changes. OTHER FINDINGS: Changes of bilateral cataract surgery again noted IMPRESSION: No acute intracranial hemorrhage. Moderate to significant chronic white matter as well as basal nuclei and lesser brainstem ischemic changes. Moderate generalized volume loss. 2:05pm - pt is currently comfortable pt is not in any distress pt is made aware of her medical results pt agrees with admission/observation paging Dr Cordoba 2:40pm - spoke to Dr Cordoba, made aware, agrees with admission/observation placement, and would like to consult Dr Correa (endocrinology) vital signs are stable Re-evaluation Time: 14:48 Condition: Re-examined - Physician Consult Information Time Consulting Physican Contacted: 14:48 Physician Contacted: Curtis Norman Outcome Of Conversation: aware of ED mgt/txt/dx; recommend admission/observation placement Medical Decision Making Medical Decision Making: Impression: confusion/dizziness, unable to take her medications i have consider all the differential diagnosis regarding pt's chief medical complaints/clinical findings, including but are not limited to: R/O CVA vs TIA, vs worsening dementia, medication non-compliance A/P: confusion/dizziness, unable to take her medications - labs - iv - xray - ct - ekg - ua - supportive care - observe/reevaluation Disposition - Clinical Impression Clinical Impression: Dizzinesses, Confusion, Acute hyperglycemia - Patient ED Disposition Is Patient to be Admitted: Yes Doctor Will See Patient In The: Hospital Counseled Patient/Family Regarding: Studies Performed, Diagnosis, Need For Followup, Rx Given - Disposition Disposition Time: 14:35 Condition: STABLE Forms: [facility] [facility] (Kenyan) Print Language: KHMER - Pt Status Changed To: Hospital Disposition Of: Observation
[2017-06-30 12:41] LABS: VENOUS BLOOD GAS BASE EXCESS 4.6 mmol/L (0.0-2.0); VENOUS BLOOD GAS PCO2 49 mmHg (40-60); VENOUS BLOOD GAS PO2 28 mm/Hg (30-55)
[2017-06-30 12:44] LABS: BASO # 0.1 K/uL (0.0-0.2); BASO % 1.1 % (0.0-2.0); EOS % 0.9 % (0.0-4.0); HEMOGLOBIN 11.8 g/dL (12.0-16.0); LYMPH # 1.6 K/uL (1.0-4.3); LYMPH % 31.9 % (20.0-40.0); MEAN CELL VOLUME 90.2 fl (81.0-99.0); MEAN CORPUSCULAR HEMOGLOBIN 30.9 pg (27.0-31.0); MEAN CORPUSCULAR HGB CONC 34.3 g/dL (33.0-37.0); MONO # 0.4 K/uL (0.0-0.8); MONO % 7.1 % (0.0-10.0); NEUT # 3.1 K/uL (1.8-7.0); NRBC % 0.1 % (0.0-0.0); RBC 3.82 Mil/uL (3.80-5.20); RED CELL DISTRIBUTION WIDTH 14.7 % (11.5-14.5); WHITE BLOOD COUNT 5.2 K/uL (4.8-10.8)
[2017-06-30 13:10] LABS: ALB/GLOB RATIO 1.3 (1.0-2.1); ALBUMIN 4.1 g/dL (3.5-5.0); ALT/SGPT 40 U/L (9-52); AST/SGOT 37 U/L (14-36); BLOOD UREA NITROGEN 21 mg/dl (7-17); CALCIUM 9.8 mg/dL (8.4-10.2); GFR AFRICAN-AMERICAN > 60; GFR NON-AFRICAN AMERICAN 52; LIPASE 55 U/L (23-300)
--- NOTE | 2017-06-30 13:40 | RAD ---
HISTORY: Dizziness and confusion. COMPARISON: Comparison made with chest radiograph dated 06/05/2017. TECHNIQUE: Chest PA and lateral FINDINGS: LUNGS: No active pulmonary disease. PLEURA: No significant pleural effusion identified. No pneumothorax apparent. CARDIOVASCULAR: Normal. OSSEOUS STRUCTURES: Mild multilevel degenerative spondylosis of the thoracic spine. Degenerative changes both shoulder girdles. . VISUALIZED UPPER ABDOMEN: Normal. OTHER FINDINGS: None. IMPRESSION: No acute infiltrates.
--- NOTE | 2017-06-30 14:11 | CT ---
PROCEDURE: CT HEAD WITHOUT CONTRAST. HISTORY: Dizziness and confusion. COMPARISON: Comparison made with prior MRI brain 02/28/2017 TECHNIQUE: Axial computed tomography images were obtained through the head/brain without intravenous contrast. Radiation dose: Total exam DLP = 789.29 mGy-cm. This CT exam was performed using one or more of the following dose reduction techniques: Automated exposure control, adjustment of the mA and/or kV according to patient size, and/or use of iterative reconstruction technique. FINDINGS: HEMORRHAGE: No acute parenchymal, subarachnoid or extra-axial hemorrhage. . BRAIN: Moderate to fairly significant diffuse/ confluent chronic periventricular white matter ischemic changes with multiple more discrete chronic lacunar-type infarcts scattered about the deep and subcortical white matter as well as both basal nuclei and to a lesser degree brainstem are less well seen on this study as compared to prior MRI brain. No obvious large acute infarct. No parenchymal nor extra-axial masses or collections seen on this noncontrast study. Prominent pineal calcification. Moderate generalized volume loss. Vascular calcifications both carotid siphons. VENTRICLES: No obstructive hydrocephalus. CALVARIUM: Unremarkable. PARANASAL SINUSES: Unremarkable as visualized. No significant inflammatory changes. MASTOID AIR CELLS: Unremarkable as visualized. No inflammatory changes. OTHER FINDINGS: Changes of bilateral cataract surgery again noted IMPRESSION: No acute intracranial hemorrhage. Moderate to significant chronic white matter as well as basal nuclei and lesser brainstem ischemic changes. Moderate generalized volume loss.
[2017-06-30] MEDS: Insulin Lispro Mix 75/25 100 units/ml (HumaLog) 10ml SC SCH (16:30)
[2017-06-30] MEDS: Insulin Lispro (humaLOG) 100 Units/ml Inj SC SCH ×2 (16:30→22:05)
[2017-06-30 17:24] LABS: SQUAMOUS EPITHIAL < 1 /hpf (0-5); URINE BACTERIA RARE (<OCC); URINE BILIRUBIN NEGATIVE (NEGATIVE); URINE BLOOD NEGATIVE (NEGATIVE); URINE CLARITY CLEAR (Clear); URINE COLOR YELLOW (YELLOW); URINE GLUCOSE (UA) 150 mg/dL (Normal); URINE HYALINE CAST 0-2 /hpf (0-2); URINE LEUKOCYTE ESTERASE NEG Leu/uL (Negative); URINE PROTEIN NEGATIVE (NEGATIVE); URINE UROBILINOGEN 0.2-1.0 mg/dL (0.2-1.0)
--- NOTE | 2017-06-30 20:26 | CP.PCM.PN ---
Subjective - Date & Time of Evaluation Date of Evaluation: 06/30/17 Time of Evaluation: 22:22 - Subjective Subjective: 87 yo with NIDDM presented to the ER for Insulin administration Confusion about who is giving pt her Insulin Objective - Vital Signs/Intake and Output Vital Signs (last 24 hours): Temp Pulse Resp BP Pulse Ox 98.2 F 63 18 133/55 L 99 06/30/17 12:17 06/30/17 16:41 06/30/17 16:41 06/30/17 16:41 06/30/17 16:41 - Medications Medications: Current Medications Insulin Detemir (Levemir) 8 units SC HS MICHAEL Insulin Human Lispro (Humalog) 0 units SC ACHS MICHAEL Last Admin: 06/30/17 16:30 Dose: Not Given Insulin Lispro Protam/Lispro Human (Humalog Mix 75/25) 10 units SC ACD MICHAEL Insulin Lispro Protam/Lispro Human (Humalog Mix 75/25) 20 units SC ACB MICHAEL Sitagliptin Phosphate (Januvia) 50 mg PO DAILY MICHAEL - Labs Labs: 06/30/17 12:39 06/30/17 12:39 - Respiratory Exam Respiratory Exam: NORMAL BREATHING PATTERN - Cardiovascular Exam Cardiovascular Exam: REGULAR RHYTHM - GI/Abdominal Exam GI & Abdominal Exam: Normal Bowel Sounds Assessment and Plan - Assessment and Plan (Free Text) Assessment: NIDDM Insulin administration Endo SS consult Dementia MID? 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
[2017-06-30] MEDS: Insulin Detemir 100 Units/ml Inj SC SCH (23:20)
[2017-07-01] MEDS: Insulin Lispro (humaLOG) 100 Units/ml Inj SC SCH ×4 (07:57→21:24)
[2017-07-01] MEDS: Enoxaparin 30 mg Syringe SC SCH (08:34)
[2017-07-01] MEDS: Insulin Lispro Mix 75/25 100 units/ml (HumaLog) 10ml SC SCH ×2 (08:35→17:34)
--- NOTE | 2017-07-01 11:33 | CP.PCM.CON ---
History of Present Illness - History of Present Illness History of Present Illness: 87 yr old woman, orginally from [facility] who presented with dizziness and has a history of dementia. Patient is followed by Dr. Reynolds and stated that she became acutely dizzy,but also that she has not been taking her diabetes medications as she should. It is very difficult to obtain complete history from the patient as she has moderately severe dementia. There is no history of trauma , mva or recent change in medications. She denies headache, weakness, blurrines of vision, nausea, vomiting. PMH/PSH: DM FH/SH: lives alone, no substance abuse. All: nkda. On exam: Neurological exam is normal, except for her MMS, which is about 20/30. She does not know the year, the date and cannot copy pentagons or draw clocks. Past Patient History - Past Medical History & Family History Past Medical History?: Yes - Past Social History Alcohol: None Drugs: Denies - CARDIAC Hx Hypertension: Yes - PULMONARY Hx Respiratory Disorders: No - NEUROLOGICAL Hx Dementia: Yes - HEENT Hx HEENT Problems: No - RENAL Hx Chronic Kidney Disease: No - ENDOCRINE/METABOLIC Hx Endocrine Disorders: Yes Hx Diabetes Mellitus Type 2: Yes - HEMATOLOGICAL/ONCOLOGICAL Hx Human Immunodeficiency Virus (HIV): No - INTEGUMENTARY Hx Dermatological Problems: No - MUSCULOSKELETAL/RHEUMATOLOGICAL Hx Arthritis: Yes - GASTROINTESTINAL Hx Gastrointestinal Disorders: No - GENITOURINARY/GYNECOLOGICAL Hx Genitourinary Disorders: No - PSYCHIATRIC Hx Psychophysiologic Disorder: No Hx Substance Use: No - SURGICAL HISTORY Hx Cholecystectomy: Yes - ANESTHESIA Hx Anesthesia: Yes Hx Anesthesia Reactions: No Hx Malignant Hyperthermia: No Meds Allergies/Adverse Reactions: Allergies Allergy/AdvReac Type Severity Reaction Status Date / Time No Known Allergies Allergy Verified 03/02/17 13:45 - Medications Medications: Current Medications Amlodipine Besylate (Norvasc) 10 mg PO DAILY [facility] Last Admin: 07/01/17 08:38 Dose: 10 mg Atorvastatin Calcium (Lipitor) 40 mg PO DAILY@2100 [facility] Clopidogrel Bisulfate (Plavix) 75 mg PO DAILY [facility] Last Admin: 07/01/17 08:33 Dose: 75 mg Donepezil HCl (Aricept) 5 mg PO HS [facility] Enoxaparin Sodium (Lovenox) 30 mg SC DAILY [facility] PRN Reason: Protocol Last Admin: 07/01/17 08:34 Dose: 30 mg Glipizide (Glucotrol) 10 mg PO BIDAC [facility] Last Admin: 07/01/17 08:33 Dose: 10 mg Hydrochlorothiazide (Microzide) 12.5 mg PO DAILY [facility] Last Admin: 07/01/17 08:33 Dose: 12.5 mg Insulin Detemir (Levemir) 8 units SC HS [facility] Last Admin: 06/30/17 23:20 Dose: 8 units Insulin Human Lispro (Humalog) 0 units SC ACHS [facility] Last Admin: 07/01/17 07:57 Dose: Not Given Insulin Lispro Protam/Lispro Human (Humalog Mix 75/25) 10 units SC ACD [facility] Last Admin: 06/30/17 16:30 Dose: Not Given Insulin Lispro Protam/Lispro Human (Humalog Mix 75/25) 20 units SC ACB [facility] Last Admin: 07/01/17 08:35 Dose: 20 units Lisinopril (Zestril) 20 mg PO Q12 [facility] Last Admin: 07/01/17 08:33 Dose: 20 mg Memantine (Namenda) 5 mg PO DAILY [facility] Last Admin: 07/01/17 08:33 Dose: 5 mg Sitagliptin Phosphate (Januvia) 50 mg PO DAILY [facility] Last Admin: 07/01/17 08:33 Dose: 50 mg Results - Vital Signs Recent Vital Signs: Last Vital Signs Temp 97.6 F 07/01/17 07:44 Pulse 79 07/01/17 08:38 Resp 16 07/01/17 07:44 BP 116/73 07/01/17 08:38 Pulse Ox 97 07/01/17 07:44 - Labs Result Diagrams: 06/30/17 12:39 06/30/17 12:39 Labs: Laboratory Results - last 24 hr 06/30/17 06/30/17 06/30/17 12:09 12:11 12:39 WBC 5.2 RBC 3.82 Hgb 11.8 L Hct 34.4 MCV 90.2 MCH 30.9 MCHC 34.3 RDW 14.7 H Plt Count 157 MPV 9.0 Neut % (Auto) 59.0 Lymph % (Auto) 31.9 [place] % (Auto) 7.1 Eos % (Auto) 0.9 Baso % (Auto) 1.1 Neut # (Auto) 3.1 Lymph # (Auto) 1.6 [place] # (Auto) 0.4 Eos # (Auto) 0.0 Baso # (Auto) 0.1 pO2 28 L VBG pH 7.40 VBG pCO2 49 VBG HCO3 27.5 VBG Total CO2 31.9 H VBG O2 Sat (Calc) 56.8 VBG Base Excess 4.6 H VBG Potassium 3.6 Sodium 137.0 Chloride 105.0 Glucose 252 H Lactate 1.9 FiO2 21.0 Potassium Carbon Dioxide Anion Gap BUN Creatinine Est GFR ( Amer) Est GFR (Non-Af Amer) POC Glucose (mg/dL) 229 H Random Glucose Calcium Phosphorus Magnesium Total Bilirubin AST ALT Alkaline Phosphatase Troponin I Total Protein Albumin Globulin Albumin/Globulin Ratio Lipase TSH 3rd Generation Venous Blood Potassium 3.6 Urine Color Urine Clarity Urine pH Ur Specific [place] Urine Protein Urine Glucose (UA) Urine Ketones Urine Blood Urine Nitrate Urine Bilirubin Urine Urobilinogen Ur Leukocyte Esterase Urine RBC (Auto) Urine Microscopic WBC Ur Squamous Epith Cells Urine Bacteria Hyaline Casts 06/30/17 06/30/17 06/30/17 12:39 16:57 17:50 WBC RBC Hgb Hct MCV MCH MCHC RDW Plt Count MPV Neut % (Auto) Lymph % (Auto) [place] % (Auto) Eos % (Auto) Baso % (Auto) Neut # (Auto) Lymph # (Auto) [place] # (Auto) Eos # (Auto) Baso # (Auto) pO2 VBG pH VBG pCO2 VBG HCO3 VBG Total CO2 VBG O2 Sat (Calc) VBG Base Excess VBG Potassium Sodium 141 Chloride 101 Glucose Lactate FiO2 Potassium 3.8 Carbon Dioxide 26 Anion Gap 18 BUN 21 H Creatinine 1.0 Est GFR ( Amer) > 60 Est GFR (Non-Af Amer) 52 POC Glucose (mg/dL) 180 H Random Glucose 228 H Calcium 9.8 Phosphorus 3.6 Magnesium 1.8 Total Bilirubin 0.8 AST 37 H ALT 40 Alkaline Phosphatase 77 Troponin I < 0.0120 Total Protein 7.3 Albumin 4.1 Globulin 3.2 Albumin/Globulin Ratio 1.3 Lipase 55 TSH 3rd Generation 1.26 Venous Blood Potassium Urine Color Yellow Urine Clarity Clear Urine pH 6.0 Ur Specific [place] 1.011 Urine Protein Negative Urine Glucose (UA) 150 Urine Ketones Negative Urine Blood Negative Urine Nitrate Negative Urine Bilirubin Negative Urine Urobilinogen 0.2-1.0 Ur Leukocyte Esterase Neg Urine RBC (Auto) 3 Urine Microscopic WBC 1 Ur Squamous Epith Cells < 1 Urine Bacteria Rare Hyaline Casts 0-2 06/30/17 06/30/17 07/01/17 20:22 22:14 03:07 WBC RBC Hgb Hct MCV MCH MCHC RDW Plt Count MPV Neut % (Auto) Lymph % (Auto) [place] % (Auto) Eos % (Auto) Baso % (Auto) Neut # (Auto) Lymph # (Auto) [place] # (Auto) Eos # (Auto) Baso # (Auto) pO2 VBG pH VBG pCO2 VBG HCO3 VBG Total CO2 VBG O2 Sat (Calc) VBG Base Excess VBG Potassium Sodium Chloride Glucose Lactate FiO2 Potassium Carbon Dioxide Anion Gap BUN Creatinine Est GFR ( Amer) Est GFR (Non-Af Amer) POC Glucose (mg/dL) 188 H 136 H 134 H Random Glucose Calcium Phosphorus Magnesium Total Bilirubin AST ALT Alkaline Phosphatase Troponin I Total Protein Albumin Globulin Albumin/Globulin Ratio Lipase TSH 3rd Generation Venous Blood Potassium Urine Color Urine Clarity Urine pH Ur Specific [place] Urine Protein Urine Glucose (UA) Urine Ketones Urine Blood Urine Nitrate Urine Bilirubin Urine Urobilinogen Ur Leukocyte Esterase Urine RBC (Auto) Urine Microscopic WBC Ur Squamous Epith Cells Urine Bacteria Hyaline Casts 07/01/17 07:42 WBC RBC Hgb Hct MCV MCH MCHC RDW Plt Count MPV Neut % (Auto) Lymph % (Auto) [place] % (Auto) Eos % (Auto) Baso % (Auto) Neut # (Auto) Lymph # (Auto) [place] # (Auto) Eos # (Auto) Baso # (Auto) pO2 VBG pH VBG pCO2 VBG HCO3 VBG Total CO2 VBG O2 Sat (Calc) VBG Base Excess VBG Potassium Sodium Chloride Glucose Lactate FiO2 Potassium Carbon Dioxide Anion Gap BUN Creatinine Est GFR ( Amer) Est GFR (Non-Af Amer) POC Glucose (mg/dL) 157 H Random Glucose Calcium Phosphorus Magnesium Total Bilirubin AST ALT Alkaline Phosphatase Troponin I Total Protein Albumin Globulin Albumin/Globulin Ratio Lipase TSH 3rd Generation Venous Blood Potassium Urine Color Urine Clarity Urine pH Ur Specific [place] Urine Protein Urine Glucose (UA) Urine Ketones Urine Blood Urine Nitrate Urine Bilirubin Urine Urobilinogen Ur Leukocyte Esterase Urine RBC (Auto) Urine Microscopic WBC Ur Squamous Epith Cells Urine Bacteria Hyaline Casts - Imaging and Cardiology CT scan - head Status: Image reviewed by me, Report reviewed by me (Ct head shows severe frontal atrophy. ) Assessment & Plan - Assessment and Plan (Free Text) Assessment: 87 yr old woman who is here for dizziness with normal neurological exam except for dementia. I believe that the dizziness is due to her blood sugar issues. I will recommend assisted for her as her dementia is quite severe. Plan: 1. continue namenda 2. please reconsult as needed Thank you Dr. Ovi MD, DPN
--- NOTE | 2017-07-01 14:39 | PN ---
DATE: ENDOCRINOLOGY FOLLOWUP NOTE SUBJECTIVE: This is an 87-year-old female with uncontrolled type 2 insulin-requiring diabetes presenting here with generalized body weakness and supervening dizziness and lightheadedness with worsening confusion from underlying dementia and is now being followed closely for metabolic management. Her glycemic levels are fluctuating but improved and the glucose levels today are ranging from 134 to 136 and 157 mg/dL. LABORATORY DATA: Her latest chemistry showed a BUN of 21, sodium of 141, potassium of 3.8, chloride of 101, CO2 of 26, glucose of 228 and creatinine of 1.0. ASSESSMENT AND PLAN: Her glycemic profile and glucose levels are really near optimal and almost controlled here in the hospital because of frequent glucose monitory and insulin administration three times a day as per the regimen prescribed. However, at home. The biggest concern is the patient cannot self administer her own insulin and depends on our doctor's office or her daughter for insulin administration. We highly recommend some kind of Subacute Facility or even Prison placement for safety reasons and also because the patient is unable to self administer her own insulin regimen. With supervening glucose levels over 400 to 500 on the outpatient as she does not receive the insulin regimen as recommended. We will continue the Humalog 75/25 given as 20 units a.c. breakfast and 10 units a.c. dinner to allow for dose equilibration. We will also continue the Levemir given as 8 units subcutaneous at bedtime daily as given with Januvia given as 50 mg once daily as ordered. We will obtain serial chemistries and supplement accordingly as needed. We will follow. Shanthi Correa MD
--- NOTE | 2017-07-01 14:47 | CP.PCM.HP ---
History of Present Illness - History of Present Illness History of Present Illness: 87 yo with NIDDM admitted for Insulin administration Confusion about who is giving pt her Insulin Present on Admission - Present on Admission Any Indicators Present on Admission: No Past Patient History - Past Medical History & Family History Past Medical History?: Yes - Past Social History Alcohol: None Drugs: Denies - CARDIAC Hx Hypertension: Yes - PULMONARY Hx Respiratory Disorders: No - NEUROLOGICAL Hx Dementia: Yes - HEENT Hx HEENT Problems: No - RENAL Hx Chronic Kidney Disease: No - ENDOCRINE/METABOLIC Hx Endocrine Disorders: Yes Hx Diabetes Mellitus Type 2: Yes - HEMATOLOGICAL/ONCOLOGICAL Hx Human Immunodeficiency Virus (HIV): No - INTEGUMENTARY Hx Dermatological Problems: No - MUSCULOSKELETAL/RHEUMATOLOGICAL Hx Arthritis: Yes - GASTROINTESTINAL Hx Gastrointestinal Disorders: No - GENITOURINARY/GYNECOLOGICAL Hx Genitourinary Disorders: No - PSYCHIATRIC Hx Psychophysiologic Disorder: No Hx Substance Use: No - SURGICAL HISTORY Hx Cholecystectomy: Yes - ANESTHESIA Hx Anesthesia: Yes Hx Anesthesia Reactions: No Hx Malignant Hyperthermia: No Meds Allergies/Adverse Reactions: Allergies Allergy/AdvReac Type Severity Reaction Status Date / Time No Known Allergies Allergy Verified 03/02/17 13:45 Results - Vital Signs Recent Vital Signs: Last Vital Signs Temp 97.6 F 07/01/17 07:44 Pulse 79 07/01/17 08:38 Resp 16 07/01/17 07:44 BP 116/73 07/01/17 08:38 Pulse Ox 97 07/01/17 07:44 - Labs Result Diagrams: 06/30/17 12:39 06/30/17 12:39 Labs: Laboratory Results - last 24 hr 06/30/17 06/30/17 06/30/17 16:57 17:50 20:22 POC Glucose (mg/dL) 180 H 188 H Urine Color Yellow Urine Clarity Clear Urine pH 6.0 Ur Specific [place] 1.011 Urine Protein Negative Urine Glucose (UA) 150 Urine Ketones Negative Urine Blood Negative Urine Nitrate Negative Urine Bilirubin Negative Urine Urobilinogen 0.2-1.0 Ur Leukocyte Esterase Neg Urine RBC (Auto) 3 Urine Microscopic WBC 1 Ur Squamous Epith Cells < 1 Urine Bacteria Rare Hyaline Casts 0-2 06/30/17 07/01/17 07/01/17 22:14 03:07 07:42 POC Glucose (mg/dL) 136 H 134 H 157 H Urine Color Urine Clarity Urine pH Ur Specific [place] Urine Protein Urine Glucose (UA) Urine Ketones Urine Blood Urine Nitrate Urine Bilirubin Urine Urobilinogen Ur Leukocyte Esterase Urine RBC (Auto) Urine Microscopic WBC Ur Squamous Epith Cells Urine Bacteria Hyaline Casts Assessment & Plan - Assessment and Plan (Free Text) Assessment: NIDDM Insulin administration Endo SS consult Dementia MID? 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
[2017-07-01] MEDS: Insulin Detemir 100 Units/ml Inj SC SCH (21:24)
[2017-07-02] MEDS: Insulin Lispro (humaLOG) 100 Units/ml Inj SC SCH ×4 (07:30→22:32)
--- NOTE | 2017-07-02 07:51 | CON ---
DATE: ENDOCRINOLOGY CONSULTATION LOCATION: In ER holding. HISTORY OF PRESENT ILLNESS: This is an 87-year-old female, very well-known to me with uncontrolled type 2 insulin-requiring diabetes, presenting here with progressively worsening dizziness, lightheadedness and confusion with associated generalized body weakness and is now being referred for diabetic evaluation and management. The biggest concern with the patient at this time is a very erratic insulin administration given by her providers as the patient is unable to self administer her own insulin at home. With the increasing dementia and safety concerns and frequent lapses of memory and forgetfulness, the patient has not been able to self administer her own insulin since this was prescribed over a year ago. She has refused Adult Daycare Services for which the daughter has arranged not once, but three times already as noted. The patient actually receives her insulin regimen at my office which is a block [facility] and she comes to my office again very erratically at different times of the day and receives her insulin either once or twice daily only from Sunday to Sunday when my emergency medical service coordinator is there. On weekends the daughter very infrequently gives the insulin if she is available as she is also very reluctant to be having to give her own mother the insulin injections. She lives a few blocks away from her mother's place in [place]. PAST MEDICAL HISTORY: As mentioned above, history of type 2 insulin-requiring diabetes, currently on a combination of Humalog 75/25 given as 24 units before breakfast and 12 units before dinner with Basaglar and/or Levemir, which ever is available given as 20 units subcu at bedtime daily. She continues to have suboptimal metabolic control with A1c levels ranging from 10-13% because of the erratic insulin administration and also her very poor adherence to help with diabetic diet. History of hypertension and dyslipidemia, history of generalized osteoarthritis with episodic bouts of polyarthralgia especially in the lower back area. There is also increasing senile dementia with frequent lapses of memory and confusion and disorientation and even paranoia. FAMILY HISTORY: Positive for hypertension and diabetes. SOCIAL HISTORY: The patient lives alone at this time and has refused Adult Daycare Services, which her daughter has arranged about three or more times over the past 2 years or so. In fact a week ago, the [facility], who took over her, outpatient Adult Daycare Services came into her apartment to pick her up and the patient was a no-show at that time. So over the past week, she barely received insulin regimen as noted. The patient lives alone in a senior citizen housing facility. No known substance use. Her daughter lives a few blocks from her apartment as noted, but is very reluctant to help out her mother in terms of the insulin administration as noted. REVIEW OF SYSTEMS: As mentioned above. Admits to generalized body weakness with worsening dizziness and lightheadedness, especially on the day of admission and was seen at her primary doctor's office, who recommended this admission. Also admits to visual blurring and increasing generalized weakness with hypersomnolence as noted. No chest pains or palpitations or PND. Her oral intake is also quite variable and even her meal times are also quite variable having usually two meals a day and her insulin is administered also at variable times of the day depends on her awakening. No recent alterations of bowel patterns, also admits to episodic constipation. Also admits to increasing polyuria and nocturia. Also admits to lower extremity painful paresthesias, especially nocturnally. PHYSICAL EXAMINATION GENERAL: An average built female and in no apparent distress. VITAL SIGNS: Blood pressure of 130/80, pulse of 90 beats per minute regular, temperature of 98, respirations of 20, height is 5 feet, weight is 150 pounds. HEENT: Head normocephalic. Anicteric with pink conjunctivae. Funduscopy is not possible at this time. Ears, nose and throat otherwise normal. NECK: Supple. Thyroid gland is normal in size. No carotid bruits or cervical adenopathy. CARDIOPULMONARY: Some adynamic precordium. S1 and S2 is rapid and regular. LUNGS: Clear to auscultation. ABDOMEN: Flat, soft with positive bowel sounds. EXTREMITIES: No peripheral edema. Pulses are +2 bilaterally. LABORATORY DATA: Chemistry showed a BUN of 21, sodium 141, potassium 3.8, chloride 101, CO2 of 26, glucose 228 and creatinine 1.0. TSH is 1.26. ASSESSMENT: This is an 87-year-old female with uncontrolled and decompensated type 2 insulin-requiring diabetes with frequent hospital readmissions because of marked hyperglycemic accelerations and clearly has suboptimal metabolic control with her latest A1c done last month in this hospital which was over 13%, again related to very erratic insulin administration because of the patient's increasing dementia and inability to self administer her own insulin at this time. She comes to the doctor's office which is my office a block away from her apartment for insulin administration at varying times of the day and gets insulin once and occasionally twice a week only on Sunday to Sunday and on weekends her daughter gives her insulin also very infrequently as noted. There is a tremendous safety issue at this time and also the physical and mental incapacity to self administer her insulin because of increasing senile dementia. PLAN OF MANAGEMENT: As discussed with the primary physician, Dr. Norman and also with the staff, the patient clearly is unable to self administer her own insulin at this time and requires a minimum of three injections to optimize her metabolic control. If we review her previous hospital admissions, her diabetic control is excellent on the inpatient where the nursing staff is able to administer her insulin three times a day as recommended and prescribed. However, because of the erratic insulin administration on the outpatient then we can never achieve near optimal metabolic control of her diabetic condition with the aforementioned insulin regimen. Would highly recommend a snf placement not only for glucose monitoring and insulin administration, but also for the patient's safety because of increasing senile dementia and behavioral disturbances thereof. Would obtain a hemoglobin A1c to confirm, once again her poor glycemic control and obtain serial chemistries and supplement accordingly as needed. We will restart today her insulin regimen on a much lower dosing because of the variable oral intake at this time. We will start with Humalog 75/25 given as 20 units before breakfast and 10 units before dinner to start today. We will also add Levemir given as 8 units subcu at bedtime daily as ordered. We will modify the coverage scale to a very low dose algorithm to obviate hypoglycemia using Humalog insulin as given and ordered. We will also add Januvia at 50 mg once daily as ordered. We will obtain serial chemistry and supplement accordingly as needed. We will follow. Shanthi Correa MD
[2017-07-02] MEDS: Enoxaparin 30 mg Syringe SC SCH (10:12)
[2017-07-02] MEDS: Insulin Lispro Mix 75/25 100 units/ml (HumaLog) 10ml SC SCH ×2 (10:15→17:30)
--- NOTE | 2017-07-02 13:37 | CARD ---
APPROVED REPORT EKG Measurement Heart [id number] <Conclusion> Sinus rhythm with 1st degree AV block ST & T wave abnormality, consider lateral ischemia Abnormal ECG
--- NOTE | 2017-07-02 21:07 | CP.PCM.PN ---
Subjective - Date & Time of Evaluation Date of Evaluation: 07/02/17 Time of Evaluation: 22:22 - Subjective Subjective: Multiple calls Still issues with insulin administration Objective - Vital Signs/Intake and Output Vital Signs (last 24 hours): Temp Pulse Resp BP Pulse Ox 98.1 F 69 20 130/64 97 07/02/17 15:40 07/02/17 15:40 07/02/17 15:40 07/02/17 15:40 07/02/17 15:40 - Medications Medications: Current Medications Amlodipine Besylate (Norvasc) 10 mg PO DAILY [facility] Last Admin: 07/02/17 10:10 Dose: 10 mg Atorvastatin Calcium (Lipitor) 40 mg PO DAILY@2100 [facility] Last Admin: 07/01/17 22:57 Dose: 40 mg Clopidogrel Bisulfate (Plavix) 75 mg PO DAILY [facility] Last Admin: 07/02/17 10:09 Dose: 75 mg Donepezil HCl (Aricept) 5 mg PO HS [facility] Last Admin: 07/01/17 22:57 Dose: 5 mg Enoxaparin Sodium (Lovenox) 30 mg SC DAILY [facility] PRN Reason: Protocol Last Admin: 07/02/17 10:12 Dose: 30 mg Glipizide (Glucotrol) 10 mg PO BIDAC [facility] Last Admin: 07/02/17 17:09 Dose: 10 mg Hydrochlorothiazide (Microzide) 12.5 mg PO DAILY [facility] Last Admin: 07/02/17 10:11 Dose: 12.5 mg Insulin Detemir (Levemir) 8 units SC HS [facility] Last Admin: 07/01/17 21:24 Dose: Not Given Insulin Human Lispro (Humalog) 0 units SC ACHS [facility] Last Admin: 07/02/17 16:59 Dose: Not Given Insulin Lispro Protam/Lispro Human (Humalog Mix 75/25) 10 units SC ACD [facility] Last Admin: 07/02/17 17:30 Dose: 10 units Insulin Lispro Protam/Lispro Human (Humalog Mix 75/25) 20 units SC ACB [facility] Last Admin: 07/02/17 10:15 Dose: 20 units Lisinopril (Zestril) 20 mg PO Q12 [facility] Last Admin: 07/02/17 10:11 Dose: 20 mg Memantine (Namenda) 5 mg PO DAILY [facility] Last Admin: 07/02/17 10:12 Dose: 5 mg Sitagliptin Phosphate (Januvia) 50 mg PO DAILY [facility] Last Admin: 07/02/17 10:12 Dose: 50 mg - Labs Labs: 06/30/17 12:39 06/30/17 12:39 - Respiratory Exam Respiratory Exam: NORMAL BREATHING PATTERN - Cardiovascular Exam Cardiovascular Exam: REGULAR RHYTHM - GI/Abdominal Exam GI & Abdominal Exam: Normal Bowel Sounds Assessment and Plan - Assessment and Plan (Free Text) Assessment: NIDDM Insulin administration Endo SS consult Dementia MID? 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
--- NOTE | 2017-07-02 21:24 | PN ---
ENDOCRINOLOGY FOLLOWUP NOTE DATE: LOCATION: In room 653. SUBJECTIVE: This is an 87-year-old female with recent uncontrolled type 2 insulin-requiring diabetes, now being followed closely for metabolic management. Her glycemic levels are fluctuating, but improved and the latest glucose levels have ranged from 143 to 262 mg/dL. It was 78 at bedtime last night and 135 at dinnertime as noted. Her latest chemistry showed a BUN of 21, sodium 141, potassium 3.8, chloride 101, CO2 of 26, glucose 228, and creatinine 1.0. So, at this time, we will continue the same basal and bolus insulin regimen to allow for dose equilibration because of the variability of the oral intake as noted. We will continue her premixed insulin regimen with Humalog 75/25 given as 20 units a.c. breakfast and 10 units a.c. dinner as ordered. We will continue the basal insulin given as Levemir at 8 units subcutaneously at bedtime daily as given. The biggest concern at this time as her social condition and progressive dementia with inability to self administer her own insulin regimen. She actually depends on our doctor's office and her daughter to give her insulin, which is given erratically because of the patient's poor cooperation with instructions of insulin administration and the timing of the insulin dosing at this time. I would highly recommend a alf placement or a subacute facility placement for the patient's safety and the patient continued an optimal metabolic control of her diabetic condition as she continues to have glycemic fluctuations with very poor suboptimal metabolic control and the latest A1c was over 13% as noted. We will follow and advise accordingly. Addendum: She also has been poorly cooperative and actually adamant and refusing care and help from the outside [facility] who can also administer her insulin regimen accordingly. The last facility was the [facility] and the patient only went one time and subsequently refused further visits to the [facility]. Shanthi Correa MD
[2017-07-02] MEDS: Insulin Detemir 100 Units/ml Inj SC SCH (22:35)
[2017-07-03 06:34] LABS: ALB/GLOB RATIO 1.2 (1.0-2.1); ALBUMIN 3.8 g/dL (3.5-5.0); ALT/SGPT 44 U/L (9-52); AST/SGOT 31 U/L (14-36); BLOOD UREA NITROGEN 22 mg/dl (7-17); CALCIUM 9.3 mg/dL (8.4-10.2); GFR AFRICAN-AMERICAN > 60; GFR NON-AFRICAN AMERICAN 59; HDL CHOLESTEROL 29 MG/DL (30-70)
[2017-07-03 06:45] LABS: LDL CHOLESTEROL 51 mg/dL (0-129)
[2017-07-03] MEDS: Insulin Lispro (humaLOG) 100 Units/ml Inj SC SCH ×4 (07:50→21:47)
[2017-07-03] MEDS: Insulin Lispro Mix 75/25 100 units/ml (HumaLog) 10ml SC SCH ×2 (08:17→16:51)
[2017-07-03] MEDS: Enoxaparin 30 mg Syringe SC SCH (09:14)
--- NOTE | 2017-07-03 14:11 | CP.PCM.CON ---
History of Present Illness - History of Present Illness History of Present Illness: psychiatry consult requested in context of {Confusion about who is giving pt her Insulin } pt is 87 years old female, reportedly has no previous hx of psychiatric treatment , [place], currently unemployed, living by herself with one of the daughters living two blocks away from her on interviewing the pt, she reported she has been forgetful lately, at times misplacing objects in her small apartment, pt during interview oriented to person and partialy to place stating she knows she is in a hospital but unable to name the name of the hospital nor the town , pt when asked about the date was unable to answer and when asked about the season she said it is winter now, she reported she does all her cooking and she goes shopping by self pt denied any changes in sleep or appetite denied psychotic symptoms denied suicidal or homicidal ideations when asked about her insulin adminstration, pt reported that she needs help with that knows that she needs the medicine but unable to follow the instructions how to take it herself and needs help with that Past Patient History - Past Medical History & Family History Past Medical History?: Yes - Past Social History Smoking Status: Never Smoked - CARDIAC Hx Cardiac Disorders: Yes Hx Hypertension: Yes - PULMONARY Hx Respiratory Disorders: No - NEUROLOGICAL Hx Neurological Disorder: Yes Hx Dementia: Yes - HEENT Hx HEENT Problems: No - RENAL Hx Chronic Kidney Disease: No - ENDOCRINE/METABOLIC Hx Endocrine Disorders: Yes Hx Diabetes Mellitus Type 2: Yes - HEMATOLOGICAL/ONCOLOGICAL Hx Blood Disorders: No Hx Human Immunodeficiency Virus (HIV): No - INTEGUMENTARY Hx Dermatological Problems: No - MUSCULOSKELETAL/RHEUMATOLOGICAL Hx Musculoskeletal Disorders: Yes Hx Arthritis: Yes Hx Falls: No - GASTROINTESTINAL Hx Gastrointestinal Disorders: Yes Hx Gall Bladder Disease: Yes - GENITOURINARY/GYNECOLOGICAL Hx Genitourinary Disorders: No - PSYCHIATRIC Hx Psychophysiologic Disorder: No Hx Substance Use: No - SURGICAL HISTORY Hx Surgeries: Yes Hx Cholecystectomy: Yes - ANESTHESIA Hx Anesthesia: Yes Hx Anesthesia Reactions: No Hx Malignant Hyperthermia: No Has any member of the family had a problem w/ anesthesia?: No Meds Allergies/Adverse Reactions: Allergies Allergy/AdvReac Type Severity Reaction Status Date / Time No Known Allergies Allergy Verified 03/02/17 13:45 - Medications Medications: Current Medications Amlodipine Besylate (Norvasc) 10 mg PO DAILY [facility] Last Admin: 07/03/17 09:14 Dose: 10 mg Atorvastatin Calcium (Lipitor) 40 mg PO DAILY@2100 [facility] Last Admin: 07/02/17 21:37 Dose: 40 mg Clopidogrel Bisulfate (Plavix) 75 mg PO DAILY [facility] Last Admin: 07/03/17 09:14 Dose: 75 mg Donepezil HCl (Aricept) 5 mg PO HS [facility] Last Admin: 07/02/17 21:38 Dose: 5 mg Enoxaparin Sodium (Lovenox) 30 mg SC DAILY [facility] PRN Reason: Protocol Last Admin: 07/03/17 09:14 Dose: 30 mg Glipizide (Glucotrol) 10 mg PO BIDAC [facility] Last Admin: 07/03/17 08:30 Dose: 10 mg Hydrochlorothiazide (Microzide) 12.5 mg PO DAILY [facility] Last Admin: 07/03/17 09:14 Dose: 12.5 mg Insulin Detemir (Levemir) 8 units SC HS [facility] Last Admin: 07/02/17 22:35 Dose: 8 units Insulin Human Lispro (Humalog) 0 units SC ACHS [facility] Last Admin: 07/03/17 11:42 Dose: Not Given Insulin Lispro Protam/Lispro Human (Humalog Mix 75/25) 10 units SC ACD [facility] Last Admin: 07/02/17 17:30 Dose: 10 units Insulin Lispro Protam/Lispro Human (Humalog Mix 75/25) 20 units SC ACB [facility] Last Admin: 07/03/17 08:17 Dose: 20 units Lisinopril (Zestril) 20 mg PO Q12 [facility] Last Admin: 07/03/17 09:14 Dose: 20 mg Memantine (Namenda) 5 mg PO DAILY [facility] Last Admin: 07/03/17 09:15 Dose: 5 mg Sitagliptin Phosphate (Januvia) 50 mg PO DAILY [facility] Last Admin: 07/03/17 09:14 Dose: 50 mg Physical Exam - Psychiatric Exam Additional comments: pt on evaluation calm cooperative good eye contact, speech soft thought form goal directed, denied any current suicidal or homicidal ideations, denied perceptual disturbances, alert awake oriented to self and partially to place Results - Vital Signs Recent Vital Signs: Last Vital Signs Temp 97.5 F L 07/03/17 08:03 Pulse 66 07/03/17 09:14 Resp 18 07/03/17 08:03 BP 125/68 07/03/17 09:14 Pulse Ox 96 07/03/17 08:03 - Labs Result Diagrams: 06/30/17 12:39 07/03/17 05:25 Labs: Laboratory Results - last 24 hr 07/02/17 07/02/17 07/02/17 16:24 18:04 22:03 Sodium Potassium Chloride Carbon Dioxide Anion Gap BUN Creatinine Est GFR ( Amer) Est GFR (Non-Af Amer) POC Glucose (mg/dL) 109 178 H 128 H Random Glucose Hemoglobin A1c Calcium Total Bilirubin AST ALT Alkaline Phosphatase Total Protein Albumin Globulin Albumin/Globulin Ratio Triglycerides Cholesterol LDL Cholesterol Direct HDL Cholesterol TSH 3rd Generation 07/03/17 07/03/17 07/03/17 05:25 05:25 05:39 Sodium 144 Potassium 3.6 Chloride 103 Carbon Dioxide 26 Anion Gap 19 BUN 22 H Creatinine 0.9 Est GFR ( Amer) > 60 Est GFR (Non-Af Amer) 59 POC Glucose (mg/dL) 122 H Random Glucose 133 H Hemoglobin A1c 9.4 H Calcium 9.3 Total Bilirubin 0.5 AST 31 ALT 44 Alkaline Phosphatase 65 Total Protein 6.8 Albumin 3.8 Globulin 3.0 Albumin/Globulin Ratio 1.2 Triglycerides 189 H Cholesterol 123 LDL Cholesterol Direct 51 HDL Cholesterol 29 L TSH 3rd Generation 1.22 07/03/17 10:51 Sodium Potassium Chloride Carbon Dioxide Anion Gap BUN Creatinine Est GFR ( Amer) Est GFR (Non-Af Amer) POC Glucose (mg/dL) 210 H Random Glucose Hemoglobin A1c Calcium Total Bilirubin AST ALT Alkaline Phosphatase Total Protein Albumin Globulin Albumin/Globulin Ratio Triglycerides Cholesterol LDL Cholesterol Direct HDL Cholesterol TSH 3rd Generation Assessment & Plan - Assessment and Plan (Free Text) Assessment: dementia without behavioral disturbances Plan: pt at current mental status is not danger to self or others as per staff pt has 24/ services at home for instrumental activities and assistance with ADL'S and medication adminstration, confirmed by mental health social worker pt is psychiatricaly cleared for discharge with these services in place provided that it is confirmed to be in place and upon medical clearance also it would be helpful if mental health social worker discuss with daughter initiation of POA
--- NOTE | 2017-07-03 20:20 | PN ---
ENDOCRINOLOGY FOLLOWUP NOTE DATE: LOCATION: In room 653. SUBJECTIVE: This is an 87-year-old female with recent uncontrolled type 2 insulin-requiring diabetes, now being followed closely for metabolic management. His glycemic levels are fluctuating, but improved and the latest glucose levels have ranged from 122 to 210 mg/dL. Her hemoglobin A1c is 9.4%, which has improved remarkably since the previous level of over 13% as noted. Her latest chemistry showed a BUN of 22, sodium 144, potassium 3.6, chloride 103, CO2 of 26, glucose 133, and creatinine 0.9. So, at this time, we will continue the same basal and premixed insulin regimen as ordered with Levemir given as 8 units subcutaneously at bedtime daily as given. We will continue the Humalog 75/25 given as 24 units a.c. breakfast and 12 units a.c. dinner as ordered. We will continue also the dual oral hypoglycemic drug therapy as given with glipizide given as 10 mg b.i.d. and Januvia as 50 mg once daily as ordered. We will titrate incremental as indicated to optimize metabolic control. We will follow and advise accordingly. Shanthi Correa MD
--- NOTE | 2017-07-03 20:38 | CP.PCM.PN ---
Subjective - Date & Time of Evaluation Date of Evaluation: 07/03/17 Time of Evaluation: 22:22 - Subjective Subjective: Psych note appreciated Multiple calls today with Endo, family, [facility] Objective - Vital Signs/Intake and Output Vital Signs (last 24 hours): Temp Pulse Resp BP Pulse Ox 98.4 F 70 20 115/66 98 07/03/17 16:12 07/03/17 16:12 07/03/17 16:12 07/03/17 16:12 07/03/17 16:12 - Medications Medications: Current Medications Amlodipine Besylate (Norvasc) 10 mg PO DAILY [facility] Last Admin: 07/03/17 09:14 Dose: 10 mg Atorvastatin Calcium (Lipitor) 40 mg PO DAILY@2100 [facility] Last Admin: 07/02/17 21:37 Dose: 40 mg Clopidogrel Bisulfate (Plavix) 75 mg PO DAILY [facility] Last Admin: 07/03/17 09:14 Dose: 75 mg Donepezil HCl (Aricept) 5 mg PO HS [facility] Last Admin: 07/02/17 21:38 Dose: 5 mg Enoxaparin Sodium (Lovenox) 30 mg SC DAILY [facility] PRN Reason: Protocol Last Admin: 07/03/17 09:14 Dose: 30 mg Glipizide (Glucotrol) 10 mg PO BIDAC [facility] Last Admin: 07/03/17 16:51 Dose: 10 mg Hydrochlorothiazide (Microzide) 12.5 mg PO DAILY [facility] Last Admin: 07/03/17 09:14 Dose: 12.5 mg Insulin Detemir (Levemir) 8 units SC HS [facility] Last Admin: 07/02/17 22:35 Dose: 8 units Insulin Human Lispro (Humalog) 0 units SC ACHS [facility] Last Admin: 07/03/17 16:51 Dose: Not Given Insulin Lispro Protam/Lispro Human (Humalog Mix 75/25) 24 units SC ACB [facility] Insulin Lispro Protam/Lispro Human (Humalog Mix 75/25) 12 units SC ACD [facility] Last Admin: 07/03/17 16:51 Dose: 12 units Lisinopril (Zestril) 20 mg PO Q12 [facility] Last Admin: 07/03/17 09:14 Dose: 20 mg Memantine (Namenda) 5 mg PO DAILY [facility] Last Admin: 07/03/17 09:15 Dose: 5 mg Sitagliptin Phosphate (Januvia) 50 mg PO DAILY [facility] Last Admin: 07/03/17 09:14 Dose: 50 mg - Labs Labs: 06/30/17 12:39 07/03/17 05:25 - Respiratory Exam Respiratory Exam: NORMAL BREATHING PATTERN - Cardiovascular Exam Cardiovascular Exam: REGULAR RHYTHM - GI/Abdominal Exam GI & Abdominal Exam: Normal Bowel Sounds Assessment and Plan - Assessment and Plan (Free Text) Assessment: NIDDM Insulin administration Endo SS consult Dementia MID? 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
[2017-07-03] MEDS: Insulin Detemir 100 Units/ml Inj SC SCH (21:48)
[2017-07-04] MEDS: Insulin Lispro (humaLOG) 100 Units/ml Inj SC SCH ×3 (06:56→16:48)
[2017-07-04] MEDS ORDERED: Insulin Lispro Mix 75/25 100 units/ml (HumaLog) 10ml SC SCH (07:30)
[2017-07-04 07:56] VITALS: O2SAT 97
[2017-07-04 08:54] LABS: BETA-HYDROXYBUTYRIC ACID None Detected
[2017-07-04] MEDS: Enoxaparin 30 mg Syringe SC SCH (08:54)
[2017-07-04 10:21] LABS: HEMOGLOBIN 12.3 g/dL (12.0-16.0); MEAN CELL VOLUME 90.9 fl (81.0-99.0); MEAN CORPUSCULAR HEMOGLOBIN 30.5 pg (27.0-31.0); MEAN CORPUSCULAR HGB CONC 33.5 g/dL (33.0-37.0); RBC 4.03 Mil/uL (3.80-5.20); RED CELL DISTRIBUTION WIDTH 14.1 % (11.5-14.5); WHITE BLOOD COUNT 5.6 K/uL (4.8-10.8)
[2017-07-04 10:33] LABS: BLOOD UREA NITROGEN 23 mg/dl (7-17); CALCIUM 9.4 mg/dL (8.4-10.2); GFR AFRICAN-AMERICAN > 60; GFR NON-AFRICAN AMERICAN 59
--- NOTE | 2017-07-04 14:53 | CP.PCM.PCO ---
Assessment/Plan - Assessment/Plan Assessment (Free Text): Pt stable, for d/c today per Dr. Cordoba. Dr. Cordoba states he spoke to the doctor from [facility] services and patient will continue to see Dr. Correa and Dr. Cordoba. Pt to be discharged after evening dose of insulin today. [facility] arranged by to start tomorrow. Pt aware of plan
[2017-07-04 16:29] VITALS: BP 132/61; PULSE 70; RESP 19; TEMP 98
[2017-07-04] MEDS: Insulin Lispro Mix 75/25 100 units/ml (HumaLog) 10ml SC SCH (16:50)
--- NOTE | 2017-07-04 18:20 | CP.PCM.PN ---
Subjective - Date & Time of Evaluation Date of Evaluation: 07/04/17 Time of Evaluation: 22:22 - Subjective Subjective: Doing well Objective - Vital Signs/Intake and Output Vital Signs (last 24 hours): Temp Pulse Resp BP Pulse Ox 98.0 F 70 19 132/61 97 07/04/17 16:29 07/04/17 16:29 07/04/17 16:29 07/04/17 16:29 07/04/17 16:29 - Labs Labs: 07/04/17 10:08 07/04/17 10:08 - Respiratory Exam Respiratory Exam: Wheezes, NORMAL BREATHING PATTERN - Cardiovascular Exam Cardiovascular Exam: REGULAR RHYTHM - GI/Abdominal Exam GI & Abdominal Exam: Normal Bowel Sounds Assessment and Plan - Assessment and Plan (Free Text) Assessment: NIDDM Insulin administration Endo SS consult Dementia MID? Hx of hypertensive encephalopathy 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
--- NOTE | 2017-07-04 19:37 | PN ---
ENDOCRINOLOGY FOLLOWUP NOTE DATE: LOCATION: Room 653. SUBJECTIVE: This is an 87-year-old female with recent uncontrolled type 2 insulin-requiring diabetes now being followed closely for metabolic management. Her glycemic levels are fluctuating, but improved and the latest glucose levels today have ranged from 168-197 mg/dL. Her latest chemistry showed a BUN of 23, sodium 143, potassium 3.7, chloride 102, CO2 of 25, glucose 219 and creatinine 0.9. So at this time we will modify once again her basal insulin and increase the Levemir to 12 units subcu at bedtime daily to start tonight. We will continue the Humalog 75/25 given as 24 units a.c. breakfast and 12 units a.c. dinner as ordered. We will increase the basal insulin with Levemir to be given as 12 units subcu at bedtime daily to start tonight. We will titrate incrementally as indicated to optimize metabolic control. We will follow and advise accordingly. Shanthi Correa MD
[2017-07-04] MEDS ORDERED: Insulin Detemir 100 Units/ml Inj SC SCH (22:00)
== END 2017-07-04 17:50 | disposition home or self-care (01) | DRG 639 ==
LOC: H.ER 11:25 → H.ERHOLD 14:49 → H.MEDSURG1 07-01 21:45 → OBSVTOIN 07-02 15:36
PROVIDERS: ADMIT Family Medicine Geriatric Medicine; ATTEND Family Medicine Geriatric Medicine
DX: E11.65 Type 2 diabetes mellitus with hyperglycemia (principal); Z79.4 Long term (current) use of insulin; E78.5 Hyperlipidemia, unspecified; F03.90 Unspecified dementia, unspecified severity, without behavioral disturbance, psychotic disturbance, mood disturbance, and anxiety; I10 Essential (primary) hypertension; M15.9 Polyosteoarthritis, unspecified; M47.814 Spondylosis without myelopathy or radiculopathy, thoracic region